=== PATIENT | male | born 1945 | race Caucasian/White ===

== ENCOUNTER 2016-06-15 11:30 | Inpatient (IN) | payer MEDICARE ==
[~2016-06-15] VITALS: Ht 177.8 cm; Wt 77.1 kg
[~2016-06-15 11:30] MED LIST: AMIO200T2 PO; ATOR40TA PO; CARV12.5 PO; CARV3.122 PO; CLOP75TA PO; DOXY100T PO; ENOX40DI3 SQ; FLUC100T7 PO; FURO-69 PO; HYDR-2666 PO; HYDR-2762 PO; HYDR200T5 PO; INSU100I11 SQ; INSU100I17 SQ; INSU100I27 SQ; INSU100V13 SQ; KETO120S TP; LEVO75TA PO; LEVO88TA2 PO; MORP4CAR IV; ONDA4VIA4 IV; PANT40TA5 PO; POLY17PO5 PO; POTA20TA4 PO; PRED5TAB PO; SENN-22 PO; TRAM50TA PO; TRIA1TAB3 PO
--- NOTE | 2016-06-15 11:49 | PHYS DOC ---
Past Medical History Past Medical History: CAD, Diabetes-Type II, [place], Other Additional Past Medical Histor: Rheumatoid arthritis Past Surgical History: Tonsillectomy Additional Past Surgical Histo: Quadruple bypass, multiple toe amputations, cataracts, LBKA Alcohol Use: None Drug Use: None Adult General Chief Complaint Chief Complaint: MECHANICAL FALL HPI HPI Patient is a 71 year old male who presents with a fall from his wheelchair. According patient is trying to turn it is wheelchair and got stuck on the carpet and that he slid out of the front of it. He presents with right- sided hip pain, left skin tear on his left arm. He states his last shot was within the last 5 years. He also states he hit his head on the floor. He denies any loss of consciousness. He states this happened around 9 AM and he presents to ER 2 hours later. He denies any abdominal pain, back pain, dysuria or headache. His blood pressure is noted to be 90s systolic. He states normally his blood pressure runs 120s systolic. Review of Systems Review of Systems Constitutional: Denies fever or chills [] Eyes: Denies change in visual acuity, redness, or eye pain [] HENT: Denies nasal congestion or sore throat [] Respiratory: Denies cough or shortness of breath [] Cardiovascular: No additional information not addressed in HPI [] GI: Denies abdominal pain, nausea, vomiting, bloody stools or diarrhea [] : Denies dysuria or hematuria [] Musculoskeletal: Denies back pain, positive for right hip pain Integument: Denies rash or skin lesions [] Neurologic: Denies headache, focal weakness or sensory changes [] Endocrine: Denies polyuria or polydipsia [] Current Medications Current Medications Current Medications Medications (Trade) Dose Ordered Sig/Juan R Start Time Stop Time Status Last Admin Dose Admin Sodium Chloride (Iv Sodium Chloride 0.9% 1000ml Bag) 1,000 ml @ 1,000 mls/hr 1X ONCE 06/15/16 14:30 06/15/16 15:29 Allergies Allergies Allergies Coded Allergies Type Severity Reaction Last Updated Verified I S O L A T I O N *CONTACT* Allergy Unknown 04/14/16 Yes No Known Medication Allergies Allergy Unknown 04/14/16 Yes Physical Exam Physical Exam Constitutional: Well developed, well nourished, no acute distress, non-toxic appearance. [] HENT: Normocephalic, atraumatic, bilateral external ears normal, oropharynx moist, no oral exudates, nose normal. [] Eyes: PERRLA, EOMI, conjunctiva normal, no discharge. [] Neck: Normal range of motion, no tenderness, supple, no stridor. [] Cardiovascular:Heart rate regular rhythm, no murmur [] Lungs & Thorax: Bilateral breath sounds clear to auscultation [] Abdomen: Bowel sounds normal, soft, no tenderness, no masses, no pulsatile masses. [] Skin: Warm, dry, no erythema, no rash. [] Back: No tenderness, no CVA tenderness. [] Extremities: Tender to palpation over the right hip, left BKA noted, no cyanosis , no clubbing, ROM intact, no edema. [] Neurologic: Alert and oriented X 3, normal motor function, normal sensory function, no focal deficits noted. [] Psychologic: Affect normal, judgement normal, mood normal. [] Current Patient Data Vital Signs Vital Signs Date Time Temp Pulse Resp B/P Pulse Ox O2 Delivery O2 Flow Rate FiO2 06/15/16 12:42 82 19 125/63 97 Room Air 06/15/16 11:30 98.0 98.0 Lab Values Laboratory Tests Test 06/15/16 12:10 06/15/16 12:35 06/15/16 12:40 Urine Collection Type U cath Urine Color Kami Urine Clarity Clear Urine pH 5.5 Urine Specific [place] >=1.030 Urine Protein 30mg/dL (NEG-TRACE) Urine Glucose (UA) 100mg/dL (NEG) Urine Ketones (Stick) Tracemg/dL (NEG) Urine Blood Moderate (NEG) Urine Nitrite Negative (NEG) Urine Bilirubin Small (NEG) Urine Urobilinogen Dipstick 0.2mg/dL (0.2 mg/dL) Urine Leukocyte Esterase Negative (NEG) Urine RBC 1-2/HPF (0-2) Urine WBC 1-4/HPF (0-4) Urine Squamous Epithelial Cells Mod/LPF Urine Bacteria 0/HPF (0-FEW) Urine Mucus Mod/LPF Glucose (Fingerstick) 171mg/dL (70-99) H White Blood Count 15.3x10^3/uL (4.0-11.0) H Red Blood Count 4.07x10^6/uL (4.30-5.70) L Hemoglobin 12.8g/dL (13.0-17.5) L Hematocrit 38.4% (39.0-53.0) L Mean Corpuscular Volume 94fL (79-100) Mean Corpuscular Hemoglobin 31pg (25-35) Mean Corpuscular Hemoglobin Concent 33g/dL (31-37) Red Cell Distribution Width 13.2% (11.5-14.5) Platelet Count 272x10^3/uL (140-400) Neutrophils (%) (Auto) 85% (31-73) H Lymphocytes (%) (Auto) 7% (24-48) L Monocytes (%) (Auto) 7% (0-9) Eosinophils (%) (Auto) 0% (0-3) Basophils (%) (Auto) 0% (0-3) Neutrophils # (Auto) 13.0x10^3uL (1.8-7.7) H Lymphocytes # (Auto) 1.0x10^3/uL (1.0-4.8) Monocytes # (Auto) 1.1x10^3/uL (0.0-1.1) Eosinophils # (Auto) 0.1x10^3/uL (0.0-0.7) Basophils # (Auto) 0.1x10^3/uL (0.0-0.2) Platelet Estimate Pending Sodium Level 145mmol/L (136-145) Potassium Level 3.5mmol/L (3.5-5.1) Chloride Level 107mmol/L (98-107) Carbon Dioxide Level 26mmol/L (21-32) Anion Gap 12 (6-14) Blood Urea Nitrogen 19mg/dL (8-26) Creatinine 1.0mg/dL (0.7-1.3) Estimated GFR (Cockcroft-Gault) 74.1 Glucose Level 144mg/dL (70-99) H Calcium Level 9.1mg/dL (8.5-10.1) Magnesium Level 1.9mg/dL (1.8-2.4) Total Bilirubin 0.7mg/dL (0.2-1.0) Direct Bilirubin 0.1mg/dL (0.0-0.2) Aspartate Amino Transferase (AST) 37U/L (15-37) Alanine Aminotransferase (ALT) 48U/L (16-63) Alkaline Phosphatase 110U/L (46-116) Creatine Kinase 335U/L (39-308) H Creatine Kinase MB (Mass) 3.9ng/mL (0.0-3.6) H Creatine Kinase MB Relative Index 1.2% (0-4) Troponin I Quantitative 0.032ng/mL (0.000-0.055) KE-Bef-T-Type Natriuretic Peptide 2790pg/mL (0-124) H Total Protein 6.7g/dL (6.4-8.2) Albumin 2.8g/dL (3.4-5.0) L Laboratory Tests 06/15/16 12:40 Laboratory Tests 06/15/16 12:40 EKG EKG EKG shows sinus rhythm with a rate of 93 bpm, left axis deviation, no ST elevations or T-wave inversions appreciated, artifact throughout the limb leads , QTc 470 ms, as interpreted by me. [] Radiology/Procedures Radiology/[place] [address] IMAGING REPORT Signed PATIENT: MARIELLE DYE ACCOUNT: [id number] : 1945 LOCATION: ER AGE: 71 SEX: M EXAM STATUS: PRE ER ORD. PHYSICIAN: ELZBIETA LYNCH MD REASON: hip pain after fall, CT FIRST PROCEDURE: CHEST AP ONLY Indication: Pain after a fall. Stiffness. Technique: AP portable chest radiograph was obtained. Comparison is from April 19, 2016. Findings: The lungs are clear. The heart is not enlarged and there is no heart failure. Median sternotomy wires are noted. There are degenerative changes in the spine. Impression: No acute thoracic findings. DICTATED and SIGNED BY: ADEOLA GUSMAN MD DATE: 06/15/16 1207 CC: ELZBIETA LYNCH MD; FEROZ ESPOSITO MD ~ [address] [id number] IMAGING REPORT Signed PATIENT: MARIELLE DYE ACCOUNT: [id number] : 1945 LOCATION: ER AGE: 71 SEX: M EXAM STATUS: PRE ER ORD. PHYSICIAN: ELZBIETA LYNCH MD REASON: hip pain after fall /NURSE WILL CALL PROCEDURE: HIP RIGHT 2V WITH PELVIS Indication: Right hip pain after a fall. Technique: 2 views of the right hip as well as an AP view of the pelvis are submitted for review. Comparison is from April 07, 2016. Findings: There is severe osteoarthritis with remodeling of the femoral head, sclerosis in the femoral head and acetabulum, and joint space narrowing. Appearance is similar to prior. No fracture or dislocation is identified. There are vascular calcifications. Impression: Severe osteoarthritis in the right hip. DICTATED and SIGNED BY: ADEOLA GUSMAN MD DATE: 06/15/16 1355 CC: ELZBIETA LYNCH MD; FEROZ ESPOSITO MD ~ [address] [id number] IMAGING REPORT Signed PATIENT: MARIELLE DYE ACCOUNT: [id number] : 1945 LOCATION: ER AGE: 71 SEX: M EXAM STATUS: PRE ER ORD. PHYSICIAN: ELZBIETA LYNCH MD REASON: fall with head and neck pain/not ready at 1213 PROCEDURE: HEAD AND CERVICAL SPINE WO CT of the head without contrast, 06/15/2016: History: Fall, head and neck pain Comparison is made to a study from 04/07/2016. The exam is partially compromised by patient motion artifact There is moderate cerebral atrophy. The ventricles are within normal limits in size. There is no evidence of acute intracranial hemorrhage or mass effect. There is an air-fluid level in the left maxillary sinus. There is mild mucosal thickening in the ethmoid sinuses. The findings are probably on an inflammatory basis. Hemorrhage into the left maxillary sinus cannot be entirely excluded. IMPRESSION: 1. No acute intracranial abnormality is detected. 2. Paranasal sinusitis. CT of the cervical spine without contrast, 06/15/2016: Noncontrast scans were obtained with multiplanar reconstructions produced. The study is partially compromised by patient motion artifact. There is a mild cervical scoliosis. There are moderate scattered marginal spurs. There are mild to moderate degenerative changes involving scattered facet joints bilaterally. Posterior spurs and disc bulging is causing mild central spinal stenosis and bilateral foraminal encroachment at C5-6. No acute fracture or dislocation is identified. IMPRESSION: 1. Moderate multilevel degenerative change. 2. No acute cervical spine abnormality is detected. PQRS Compliance Statement: One or more of the following individualized dose reduction techniques were utilized for this examination: 1. Automated exposure control 2. Adjustment of the mA and/or kV according to patient size 3. Use of iterative reconstruction technique DICTATED and SIGNED BY: ALISSA STAFFORD MD DATE: 06/15/16 2725 CC: ELZBIETA LYNCH MD; FEROZ ESPOSITO MD ~ Impressions: Right hip pain Dehydration Course & Med Decision Making Course & Med Decision Making Pertinent Labs and Imaging studies reviewed. (See chart for details) She presented without eating breakfast or have anything to drink in a fall in his wheelchair. CT scan head and neck in addition to x-ray of his chest and hip did not show any acute abnormalities. His blood pressure was on the softer side and after a liter fluid to spend the 120 range. Labs are nonacute. Patient discharged home with return precautions. Dragon Disclaimer Dragon Disclaimer This electronic medical record was generated, in whole or in part, using a voice recognition dictation system. Departure Departure Impression: Primary Impression: Dehydration Additional Impression: Right hip pain Disposition: 01 HOME, SELF-CARE Condition: STABLE Referrals: FEROZ ESPOSITO MD (PCP) Patient Instructions: Fall Prevention and Home Safety, [id number] Additional Instructions: The x-rays did not show any broken. He received IV fluids and giving discharged home. He should follow up with primary care physician within the next few days, use [id number] pain medicines as needed for any aches and pains. She developed chest pain, shortness of breath, lightheadedness dizziness or other concerns. Return back to emergency department. Problem Qualifiers ELZBIETA LYNCH MD Jun 15, 2016 11:49
[2016-06-15] MEDS ORDERED: IV NORMAL SALINE 1000ML BAG 1,000 ML IV SCH (12:00)
[2016-06-15 13:25] LABS: BASO # 0.1 x10^3/uL (0.0-0.2); BASO % 0 % (0-3); EOS % 0 % (0-3); HEMATOCRIT 38.4 % (39.0-53.0); HEMOGLOBIN 12.8 g/dL (13.0-17.5); LYMPH % 7 % (24-48); MEAN CORPUSCULAR HEMOGLOBIN 31 pg (25-35); MEAN CORPUSCULAR HGB CONC 33 g/dL (31-37); MEAN CORPUSCULAR VOLUME 94 fL (79-100); MONO % 7 % (0-9); NEUT % 85 % (31-73); PLATELET COUNT 272 x10^3/uL (140-400); RED BLOOD COUNT 4.07 x10^6/uL (4.30-5.70); RED CELL DISTRIBUTION WIDTH 13.2 % (11.5-14.5); WHITE BLOOD COUNT 15.3 x10^3/uL (4.0-11.0)
--- NOTE | 2016-06-15 13:55 | EKG ---
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 Electronically Signed On 06-18-2016 19:47:08 CDT by Jada Freitas
--- NOTE | 2016-06-15 13:57 | RAD ---
Indication: Pain after a fall. Stiffness. Technique: AP portable chest radiograph was obtained. Comparison is from April 19, 2016. Findings: The lungs are clear. The heart is not enlarged and there is no heart failure. Median sternotomy wires are noted. There are degenerative changes in the spine. Impression: No acute thoracic findings.
--- NOTE | 2016-06-15 14:00 | RAD ---
Indication: Right hip pain after a fall. Technique: 2 views of the right hip as well as an AP view of the pelvis are submitted for review. Comparison is from April 07, 2016. Findings: There is severe osteoarthritis with remodeling of the femoral head, sclerosis in the femoral head and acetabulum, and joint space narrowing. Appearance is similar to prior. No fracture or dislocation is identified. There are vascular calcifications. Impression: Severe osteoarthritis in the right hip.
--- NOTE | 2016-06-15 14:03 | RAD ---
CT of the head without contrast, 06/15/2016: History: Fall, head and neck pain Comparison is made to a study from 04/07/2016. The exam is partially compromised by patient motion artifact There is moderate cerebral atrophy. The ventricles are within normal limits in size. There is no evidence of acute intracranial hemorrhage or mass effect. There is an air-fluid level in the left maxillary sinus. There is mild mucosal thickening in the ethmoid sinuses. The findings are probably on an inflammatory basis. Hemorrhage into the left maxillary sinus cannot be entirely excluded. IMPRESSION: 1. No acute intracranial abnormality is detected. 2. Paranasal sinusitis. CT of the cervical spine without contrast, 06/15/2016: Noncontrast scans were obtained with multiplanar reconstructions produced. The study is partially compromised by patient motion artifact. There is a mild cervical scoliosis. There are moderate scattered marginal spurs. There are mild to moderate degenerative changes involving scattered facet joints bilaterally. Posterior spurs and disc bulging is causing mild central spinal stenosis and bilateral foraminal encroachment at C5-6. No acute fracture or dislocation is identified. IMPRESSION: 1. Moderate multilevel degenerative change. 2. No acute cervical spine abnormality is detected. PQRS Compliance Statement: One or more of the following individualized dose reduction techniques were utilized for this examination: 1. Automated exposure control 2. Adjustment of the mA and/or kV according to patient size 3. Use of iterative reconstruction technique
[2016-06-15 14:08] LABS: BILIRUBIN,URINE SMALL (NEG); GLUCOSE,URINE 100 mg/dL (NEG); NITRITE,URINE NEGATIVE (NEG); PH,URINE 5.5; PROTEIN,URINE 30 mg/dL (NEG-TRACE); UROBILINOGEN,URINE 0.2 mg/dL (0.2 mg/dL)
[2016-06-15 14:09] LABS: BACTERIA,URINE 0 /HPF (0-FEW); SQUAMOUS EPITHELIAL CELL,UR MOD /LPF
[2016-06-15 14:12] LABS: ALBUMIN 2.8 g/dL (3.4-5.0); CALCIUM 9.1 mg/dL (8.5-10.1); GFR 74.1; TOTAL PROTEIN 6.7 g/dL (6.4-8.2)
[2016-06-15 14:13] LABS: DIRECT BILIRUBIN 0.1 mg/dL (0.0-0.2); MAGNESIUM 1.9 mg/dL (1.8-2.4); POTASSIUM 3.5 mmol/L (3.5-5.1); TOTAL BILIRUBIN 0.7 mg/dL (0.2-1.0)
[2016-06-15] MEDS ORDERED: IV NORMAL SALINE 1000ML BAG 1,000 ML IV ONE (14:30)
[2016-06-15 14:39] LABS: CKMB INDEX 1.2 % (0-4); CKMB MASS 3.9 ng/mL (0.0-3.6)
[2016-06-15 15:38] LABS: % BASOS 1 % (0-3); % EOS 1 % (0-5)
[2016-06-15 15:40] LABS: PLT ESTIMATE ADEQUATE (ADEQUATE); TOXIC GRANULATION SLIGHT
[2016-06-15] MEDS ORDERED: ONDANSETRON PF 4 MG/2 ML VIAL. IV PRN (19:00)
[2016-06-15] MEDS ORDERED: ACETAMINOPHEN 325 MG TABLET. PO PRN (19:00)
[2016-06-15 20:00] VITALS: BP 88/40
[2016-06-15] MEDS: IV NORMAL SALINE 1000ML BAG 1,000 ML IV SCH (20:12)
[2016-06-15 23:00] VITALS: BP 108/55
[2016-06-16] MEDS: IV NORMAL SALINE 1000ML BAG 1,000 ML IV SCH (02:27)
[2016-06-16 03:00] VITALS: BP 95/53
--- NOTE | 2016-06-16 04:38 | ACF ---
Admission Forms Criteria DEHYDRATION Clinical Indications for Admission to Inpatient Care (Place 'X' for any and all applicable criteria): Admission is indicated for ANY ONE of the following (1)(2)(3)(4)(5): [X]I. Inpatient admission required rather than observation care (see Dehydration: Observation Care guideline as appropriate) because of ANY ONE of the following: [ ]a) Vomiting that is severe or persistent [ ]b) Severe electrolyte abnormalities requiring inpatient care [X]c) Hemodynamic instability [ ]d) IV fluid to replace significant ongoing losses (greater than 3 L/m2 per day (10) (11) [ ]e) Parenteral nutrition regimen that must be implemented on inpatient basis [ ]f) Other condition,treatment or monitoring requiring inpatient admission [ ]II. Serious cause for dehydration requiring acute hospitalization (eg, bowel obstruction, increased intracranial pressure, infectious cause) Extended stay beyond goal length of stay may be needed for(1)(3 )(4)(17): [ ]a) Chronic severe dehydration [ ]b) Persistent vital sign changes, severe electrolyte imbalance, or diagnosed cause of dehydration that requires continued hospitalization (eg, bowel obstruction, increased intracranial pressure) [ ]c) Older patients (65 years or older) [ ]d) Severe comorbid illness (eg, renal failure, heart failure, poorly controlled diabetes) The original Room 77 content created by Room 77 has been revised. The portions of the content which have been revised are identified through the use of italic text or in bold, and [facility] has neither reviewed nor approved the modified material. All other unmodified content is copyright Room 77. Please see references footnoted in the original Room 77 edition 2016 Admission Criteria Met?: Yes ANGELITO MARIN Jun 16, 2016 04:38
[2016-06-16 07:00] VITALS: BP 116/57
[2016-06-16 08:18] LABS: ALBUMIN/GLOBULIN RATIO 0.6 (1.0-1.7); CALCIUM 8.2 mg/dL (8.5-10.1); CREATININE 0.8 mg/dL (0.7-1.3); GFR 95.8; POTASSIUM 3.1 mmol/L (3.5-5.1); TOTAL BILIRUBIN 0.4 mg/dL (0.2-1.0); TOTAL PROTEIN 5.3 g/dL (6.4-8.2)
[2016-06-16] MEDS ORDERED: IV NORMAL SALINE 1000ML BAG 1,000 ML IV SCH (08:45)
[2016-06-16] MEDS ORDERED: POLYETHYLENE GLYCOL 3350 17 GM PACKET. PO PRN (08:45)
[2016-06-16] MEDS: POTASSIUM CHLORIDE 20 MEQ TABLET.ER. PO SCH ×2 (09:00→17:02)
[2016-06-16] MEDS: SENNOSIDES/DOCUSATE 8.6/50MG TABLET. PO SCH (09:00)
[2016-06-16] MEDS ORDERED: POTASSIUM CHLORIDE 20 MEQ TABLET.ER. PO ONE (09:00)
[2016-06-16 09:03] LABS: BASO % 0 % (0-3); EOS % 2 % (0-3); HEMATOCRIT 31.9 % (39.0-53.0); HEMOGLOBIN 10.7 g/dL (13.0-17.5); LYMPH # 1.1 x10^3/uL (1.0-4.8); LYMPH % 11 % (24-48); MEAN CORPUSCULAR HEMOGLOBIN 32 pg (25-35); MEAN CORPUSCULAR HGB CONC 34 g/dL (31-37); MEAN CORPUSCULAR VOLUME 95 fL (79-100); MONO % 10 % (0-9); NEUT % 78 % (31-73); PLATELET COUNT 209 x10^3/uL (140-400); RED BLOOD COUNT 3.36 x10^6/uL (4.30-5.70); RED CELL DISTRIBUTION WIDTH 13.2 % (11.5-14.5); WHITE BLOOD COUNT 10.2 x10^3/uL (4.0-11.0)
--- NOTE | 2016-06-16 09:03 | PDOC1 ---
HERNANDEZ WARD DISC PAD PLATE FILLER 06/16/16 0903: HISTORY AND PHYSICAL Chief Complaint Chief Complaint This 71 year old male has been admitted with a chief complaint of fall from his wheelchair. He was trying to turn the WC when it became stuck in the carpet and he slid out of the chair approximately 9AM 06/16/16. He noted acute on chronic RH pain and he hit his head on the floor. He cannot recall if he lost consciousness. He presented to the ED approximately [address] of the head negative; XR of the R hip severe OA; and cervical spine xray degenerative changes. EKG SR without acute changes. CXR negative. UA mod blood and trace ketones without WBC. CPK mildly elevated at 335. BNP was noted to be 2790 without acute symptoms. He was hypotensive with PB 70/45 and was given IVF. WBC were elevated at 15.3 without fever being present. He is admitted for further evaluation and treatment. 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) Rheumatologic: Rheumatoid arthritis Infectious disease: [place], Other Renal/: Chronic renal insuff (CKD II ), UTI Endocrine: 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 Medications Medications reviewed and reconciled. Allergy Allergies Coded Allergies Type Severity Reaction Last Updated Verified I S O L A T I O N *CONTACT* Allergy Unknown 04/14/16 Yes No Known Medication Allergies Allergy Unknown 04/14/16 Yes Physical Exam Physical Exam General appearance - alert, chronically ill appearing, and in no distress Mental Status - alert, oriented to person, place, and time, affect appropriate to mood Head - normal Chest - clear to auscultation, no wheezes, rales or rhonchi, symmetric air entry Heart - S1 and S2 normal Abdomen - soft, nontender, nondistended, BS+ Neurological - no acute focal neurological deficit noted Musculoskeletal - R hip tender, wound vac intact to R hip Extremities - no pedal edema Skin - warm and dry, seborrheic dermatitis face, multiple ecchymotic areas upper arms. VTE Prophylaxis Ordered VTE Prophylaxis Devices: Yes VTE Pharmacological Prophylaxi: No Assessment Labs Laboratory Tests Test 06/15/16 12:10 06/15/16 12:35 06/15/16 12:40 06/15/16 14:18 Urine Collection Type U cath Urine Color Kami Urine Clarity Clear Urine pH 5.5 Urine Specific [place] >=1.030 Urine Protein 30mg/dL (NEG-TRACE) Urine Glucose (UA) 100mg/dL (NEG) Urine Ketones (Stick) Tracemg/dL (NEG) Urine Blood Moderate (NEG) Urine Nitrite Negative (NEG) Urine Bilirubin Small (NEG) Urine Urobilinogen Dipstick 0.2mg/dL (0.2 mg/dL) Urine Leukocyte Esterase Negative (NEG) Urine RBC 1-2/HPF (0-2) Urine WBC 1-4/HPF (0-4) Urine Squamous Epithelial Cells Mod/LPF Urine Bacteria 0/HPF (0-FEW) Urine Mucus Mod/LPF Glucose (Fingerstick) 171mg/dL (70-99) White Blood Count 15.3x10^3/uL (4.0-11.0) Red Blood Count 4.07x10^6/uL (4.30-5.70) Hemoglobin 12.8g/dL (13.0-17.5) Hematocrit 38.4% (39.0-53.0) Mean Corpuscular Volume 94fL (79-100) Mean Corpuscular Hemoglobin 31pg (25-35) Mean Corpuscular Hemoglobin Concent 33g/dL (31-37) Red Cell Distribution Width 13.2% (11.5-14.5) Platelet Count 272x10^3/uL (140-400) Neutrophils (%) (Auto) 85% (31-73) Lymphocytes (%) (Auto) 7% (24-48) Monocytes (%) (Auto) 7% (0-9) Eosinophils (%) (Auto) 0% (0-3) Basophils (%) (Auto) 0% (0-3) Neutrophils # (Auto) 13.0x10^3uL (1.8-7.7) Lymphocytes # (Auto) 1.0x10^3/uL (1.0-4.8) Monocytes # (Auto) 1.1x10^3/uL (0.0-1.1) Eosinophils # (Auto) 0.1x10^3/uL (0.0-0.7) Basophils # (Auto) 0.1x10^3/uL (0.0-0.2) Segmented Neutrophils % 69% (35-66) Band Neutrophils % 13% (0-9) Lymphocytes % 8% (24-48) Monocytes % 8% (0-10) Eosinophils % 1% (0-5) Basophils % 1% (0-3) Toxic Granulation Slight Platelet Estimate Adequate (ADEQUATE) Sodium Level 145mmol/L (136-145) Potassium Level 3.5mmol/L (3.5-5.1) Chloride Level 107mmol/L (98-107) Carbon Dioxide Level 26mmol/L (21-32) Anion Gap 12 (6-14) Blood Urea Nitrogen 19mg/dL (8-26) Creatinine 1.0mg/dL (0.7-1.3) Estimated GFR (Cockcroft-Gault) 74.1 Glucose Level 144mg/dL (70-99) Calcium Level 9.1mg/dL (8.5-10.1) Magnesium Level 1.9mg/dL (1.8-2.4) Total Bilirubin 0.7mg/dL (0.2-1.0) Direct Bilirubin 0.1mg/dL (0.0-0.2) Aspartate Amino Transf (AST/SGOT) 37U/L (15-37) Alanine Aminotransferase (ALT/SGPT) 48U/L (16-63) Alkaline Phosphatase 110U/L (46-116) Creatine Kinase 335U/L (39-308) Creatine Kinase MB (Mass) 3.9ng/mL (0.0-3.6) Creatine Kinase MB Relative Index 1.2% (0-4) Troponin I Quantitative 0.032ng/mL (0.000-0.055) UJ-Kyt-I-Type Natriuretic Peptide 2790pg/mL (0-124) Total Protein 6.7g/dL (6.4-8.2) Albumin 2.8g/dL (3.4-5.0) Lactic Acid Level 1.2mmol/L (0.4-2.0) Test 06/15/16 22:26 06/16/16 00:55 06/16/16 07:25 Glucose (Fingerstick) 104mg/dL (70-99) 103mg/dL (70-99) Troponin I Quantitative 0.035ng/mL (0.000-0.055) Laboratory Tests Test 06/15/16 12:10 06/15/16 12:35 06/15/16 12:40 06/15/16 14:18 Urine Collection Type U cath Urine Color Kami Urine Clarity Clear Urine pH 5.5 Urine Specific [place] >=1.030 Urine Protein 30mg/dL (NEG-TRACE) Urine Glucose (UA) 100mg/dL (NEG) Urine Ketones (Stick) Tracemg/dL (NEG) Urine Blood Moderate (NEG) Urine Nitrite Negative (NEG) Urine Bilirubin Small (NEG) Urine Urobilinogen Dipstick 0.2mg/dL (0.2 mg/dL) Urine Leukocyte Esterase Negative (NEG) Urine RBC 1-2/HPF (0-2) Urine WBC 1-4/HPF (0-4) Urine Squamous Epithelial Cells Mod/LPF Urine Bacteria 0/HPF (0-FEW) Urine Mucus Mod/LPF Glucose (Fingerstick) 171mg/dL (70-99) White Blood Count 15.3x10^3/uL (4.0-11.0) Red Blood Count 4.07x10^6/uL (4.30-5.70) Hemoglobin 12.8g/dL (13.0-17.5) Hematocrit 38.4% (39.0-53.0) Mean Corpuscular Volume 94fL (79-100) Mean Corpuscular Hemoglobin 31pg (25-35) Mean Corpuscular Hemoglobin Concent 33g/dL (31-37) Red Cell Distribution Width 13.2% (11.5-14.5) Platelet Count 272x10^3/uL (140-400) Neutrophils (%) (Auto) 85% (31-73) Lymphocytes (%) (Auto) 7% (24-48) Monocytes (%) (Auto) 7% (0-9) Eosinophils (%) (Auto) 0% (0-3) Basophils (%) (Auto) 0% (0-3) Neutrophils # (Auto) 13.0x10^3uL (1.8-7.7) Lymphocytes # (Auto) 1.0x10^3/uL (1.0-4.8) Monocytes # (Auto) 1.1x10^3/uL (0.0-1.1) Eosinophils # (Auto) 0.1x10^3/uL (0.0-0.7) Basophils # (Auto) 0.1x10^3/uL (0.0-0.2) Segmented Neutrophils % 69% (35-66) Band Neutrophils % 13% (0-9) Lymphocytes % 8% (24-48) Monocytes % 8% (0-10) Eosinophils % 1% (0-5) Basophils % 1% (0-3) Toxic Granulation Slight Platelet Estimate Adequate (ADEQUATE) Sodium Level 145mmol/L (136-145) Potassium Level 3.5mmol/L (3.5-5.1) Chloride Level 107mmol/L (98-107) Carbon Dioxide Level 26mmol/L (21-32) Anion Gap 12 (6-14) Blood Urea Nitrogen 19mg/dL (8-26) Creatinine 1.0mg/dL (0.7-1.3) Estimated GFR (Cockcroft-Gault) 74.1 Glucose Level 144mg/dL (70-99) Calcium Level 9.1mg/dL (8.5-10.1) Magnesium Level 1.9mg/dL (1.8-2.4) Total Bilirubin 0.7mg/dL (0.2-1.0) Direct Bilirubin 0.1mg/dL (0.0-0.2) Aspartate Amino Transf (AST/SGOT) 37U/L (15-37) Alanine Aminotransferase (ALT/SGPT) 48U/L (16-63) Alkaline Phosphatase 110U/L (46-116) Creatine Kinase 335U/L (39-308) Creatine Kinase MB (Mass) 3.9ng/mL (0.0-3.6) Creatine Kinase MB Relative Index 1.2% (0-4) Troponin I Quantitative 0.032ng/mL (0.000-0.055) SS-Xbl-C-Type Natriuretic Peptide 2790pg/mL (0-124) Total Protein 6.7g/dL (6.4-8.2) Albumin 2.8g/dL (3.4-5.0) Lactic Acid Level 1.2mmol/L (0.4-2.0) Test 06/15/16 22:26 06/16/16 00:55 06/16/16 07:25 Glucose (Fingerstick) 104mg/dL (70-99) 103mg/dL (70-99) Troponin I Quantitative 0.035ng/mL (0.000-0.055) Plan Plan IMPRESSION: 1. R hip acute on chronic pain post fall from WC 2. R hip wound with wound vac POA 3. hypotension with low grade fever POA 4. CHF EF 35-40% per ECHO stable at admission, not acute 5. DM II with neuropathy insulin controlled, 6. hyperlipidemia 7. anemia chronic B12 deficiency 8. CAD with h/o OH, CABG x4 9. Rheumatoid arthritis 10. 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 diverticulosis 12. severe depression single episode mildly active 13 CKD II 14. severe weakness and debility 15. abnormal troponin with elevated CPK CK MB cardiac normal 16, severe weakness and debility 17. severe PCL malnutrition with trace ketonuria 18. seborrheic dermatitis 19. OA R hip severe 20. 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 Polyarthralgia. 29. Primary polyarticular osteoarthritis. 30 DMARD monitoring. 31. Chronic nonsteroidal antiinflammatory drug use. 32. R hip decubitus ulcer stage III s/p debridement 04/14/16 PLAN: R hip pain acute on chronic consult Dr. Chen R hip xray severe OA with h/o avascular necrosis with shortening deformity of the R thigh abnormal troponin Admit 0.035 06/16 0.065 CK 335 CK MB (mass 3.9) MB II WNL consult cardiology EKG on admission SR without acute changes, repeat EKG this AM 06/16 leukocytosis, hypotension, low grade temp BC x2 consult ID wound care consult for wound vac UA hematuria, neg WBC, trace ketones IVF 1/2 NS with addition 40 KCL (06/16) 100cc/hr CKD II Admit BUN 19 06/16 16 Cr 1.0 0.8 Na 145 146 K 3.5 3.1 replace KCL 40meq oral x 1 Add 40 meq to IVF and change to 1/2 NS Decrease IV from 150cc/hr to 100cc/hr CHF stable systolic Admit weight 164# IO Daily wt BNP 2790 without symptoms/CXR clear anemia Admit Hgb 12.8 DM II Levemir SSI/FSBS BS 103-110 severe PCL malnutrition supplementation ADA diet DVT/GI prophylaxis SCD/CARLEY Lovenox PPI For more details regarding further plans, please refer to the orders. FEROZ ESPOSITO MD 06/16/16 1024: HISTORY AND PHYSICAL Plan Plan patient can not take care of himself at the assisted living.he needs to be in a [facility] care home. consult healthcare social worker. The patient was seen and examined by me. Chart reviewed and plan of care formulated. Discussed with, reviewed and agree with PAPER DELIVERER's notes, plan of care and orders with modifications as necessary. For more details regarding further plans, please refer to the orders. HERNANDEZ WARD APRN Jun 16, 2016 09:03 FEROZ ESPOSITO MD Jun 16, 2016 10:24
--- NOTE | 2016-06-16 09:11 | EKG ---
[facility] [address] [place] [address] Test Date: 2016-06-16 Test Time: 09:10:38 Pat Name: MARIELLE DYE Department: Room: [facility] Gender: M Casket Inspector: RAY : 1945 Requested By: FEROZ ESPOSITO Order Number: [id number] Reading MD: Jada Freitas Measurements Intervals Lowgap Rate: 70 P: -54 WA: 114 QRS: -9 QRSD: 108 T: 76 QT: 432 QTc: 470 Interpretive Statements SINUS RHYTHM LEFTWARD AXIS QRS(T) CONTOUR ABNORMALITY CONSIDER ANTEROSEPTAL MYOCARDIAL DAMAGE CONSISTENT WITH INFERIOR INFARCT PROBABLY OLD ABNORMAL ECG RI6.01 Compared to ECG 04/07/2016 13:27:59 Myocardial infarct finding now present Atrial abnormality no longer present Electronically Signed On 06-18-2016 19:59:19 CDT by Jada Freitas
[2016-06-16] MEDS: CLOPIDOGREL BISULFATE 75 MG TABLET PO SCH (09:58)
[2016-06-16] MEDS: HYDROXYCHLOROQUINE 200 MG TABLET PO SCH ×2 (09:59→20:51)
[2016-06-16] MEDS: ENOXAPARIN 40 MG/0.4 ML DISP.SYRIN. SQ SCH (09:59)
[2016-06-16] MEDS: PANTOPRAZOLE 40 MG TABLET. PO SCH (09:59)
[2016-06-16] MEDS: AMIODARONE HCL 200 MG TABLET PO SCH (09:59)
[2016-06-16] MEDS: CARVEDILOL 3.125 MG TABLET PO SCH ×2 (10:00→17:00)
[2016-06-16] MEDS: POTASSIUM CHLORIDE 40 MEQ in IV 1/2 NORMAL SALINE 1,000 ML IV SCH ×2 (10:01→20:51)
[2016-06-16] MEDS: PREDNISONE 5 MG TABLET PO SCH (10:02)
[2016-06-16] MEDS: KETOCONAZOLE 2% SHAMPOO 120ML BOTTLE. TP SCH (10:02)
[2016-06-16 10:53] VITALS: BP 95/36
[2016-06-16] MEDS: LEVOTHYROXINE 88 MCG TABLET PO SCH (11:10)
--- NOTE | 2016-06-16 11:11 | PDOC ---
Infectious Disease Note ROS ROS Vital Sign Vital Signs Vital Signs Date Time Temp Pulse Resp B/P Pulse Ox O2 Delivery O2 Flow Rate FiO2 06/16/16 10:53 97.6 73 20 95/36 93 Room Air 97.6 Labs Lab Laboratory Tests Test 06/15/16 12:10 06/15/16 12:35 06/15/16 12:40 06/15/16 14:18 Urine Collection Type U cath Urine Color Kami Urine Clarity Clear Urine pH 5.5 Urine Specific [place] >=1.030 Urine Protein 30mg/dL (NEG-TRACE) Urine Glucose (UA) 100mg/dL (NEG) Urine Ketones (Stick) Tracemg/dL (NEG) Urine Blood Moderate (NEG) Urine Nitrite Negative (NEG) Urine Bilirubin Small (NEG) Urine Urobilinogen Dipstick 0.2mg/dL (0.2 mg/dL) Urine Leukocyte Esterase Negative (NEG) Urine RBC 1-2/HPF (0-2) Urine WBC 1-4/HPF (0-4) Urine Squamous Epithelial Cells Mod/LPF Urine Bacteria 0/HPF (0-FEW) Urine Mucus Mod/LPF Glucose (Fingerstick) 171mg/dL (70-99) White Blood Count 15.3x10^3/uL (4.0-11.0) Red Blood Count 4.07x10^6/uL (4.30-5.70) Hemoglobin 12.8g/dL (13.0-17.5) Hematocrit 38.4% (39.0-53.0) Mean Corpuscular Volume 94fL (79-100) Mean Corpuscular Hemoglobin 31pg (25-35) Mean Corpuscular Hemoglobin Concent 33g/dL (31-37) Red Cell Distribution Width 13.2% (11.5-14.5) Platelet Count 272x10^3/uL (140-400) Neutrophils (%) (Auto) 85% (31-73) Lymphocytes (%) (Auto) 7% (24-48) Monocytes (%) (Auto) 7% (0-9) Eosinophils (%) (Auto) 0% (0-3) Basophils (%) (Auto) 0% (0-3) Neutrophils # (Auto) 13.0x10^3uL (1.8-7.7) Lymphocytes # (Auto) 1.0x10^3/uL (1.0-4.8) Monocytes # (Auto) 1.1x10^3/uL (0.0-1.1) Eosinophils # (Auto) 0.1x10^3/uL (0.0-0.7) Basophils # (Auto) 0.1x10^3/uL (0.0-0.2) Segmented Neutrophils % 69% (35-66) Band Neutrophils % 13% (0-9) Lymphocytes % 8% (24-48) Monocytes % 8% (0-10) Eosinophils % 1% (0-5) Basophils % 1% (0-3) Toxic Granulation Slight Platelet Estimate Adequate (ADEQUATE) Sodium Level 145mmol/L (136-145) Potassium Level 3.5mmol/L (3.5-5.1) Chloride Level 107mmol/L (98-107) Carbon Dioxide Level 26mmol/L (21-32) Anion Gap 12 (6-14) Blood Urea Nitrogen 19mg/dL (8-26) Creatinine 1.0mg/dL (0.7-1.3) Estimated GFR (Cockcroft-Gault) 74.1 Glucose Level 144mg/dL (70-99) Calcium Level 9.1mg/dL (8.5-10.1) Magnesium Level 1.9mg/dL (1.8-2.4) Total Bilirubin 0.7mg/dL (0.2-1.0) Direct Bilirubin 0.1mg/dL (0.0-0.2) Aspartate Amino Transf (AST/SGOT) 37U/L (15-37) Alanine Aminotransferase (ALT/SGPT) 48U/L (16-63) Alkaline Phosphatase 110U/L (46-116) Creatine Kinase 335U/L (39-308) Creatine Kinase MB (Mass) 3.9ng/mL (0.0-3.6) Creatine Kinase MB Relative Index 1.2% (0-4) Troponin I Quantitative 0.032ng/mL (0.000-0.055) EB-Jfu-L-Type Natriuretic Peptide 2790pg/mL (0-124) Total Protein 6.7g/dL (6.4-8.2) Albumin 2.8g/dL (3.4-5.0) Lactic Acid Level 1.2mmol/L (0.4-2.0) Test 06/15/16 22:26 06/16/16 00:55 06/16/16 07:00 06/16/16 07:25 Glucose (Fingerstick) 104mg/dL (70-99) 103mg/dL (70-99) Troponin I Quantitative 0.035ng/mL (0.000-0.055) 0.065ng/mL (0.000-0.055) Sodium Level 146mmol/L (136-145) Potassium Level 3.1mmol/L (3.5-5.1) Chloride Level 111mmol/L (98-107) Carbon Dioxide Level 25mmol/L (21-32) Anion Gap 10 (6-14) Blood Urea Nitrogen 16mg/dL (8-26) Creatinine 0.8mg/dL (0.7-1.3) Estimated GFR (Cockcroft-Gault) 95.8 BUN/Creatinine Ratio 20 (6-20) Glucose Level 110mg/dL (70-99) Calcium Level 8.2mg/dL (8.5-10.1) Total Bilirubin 0.4mg/dL (0.2-1.0) Aspartate Amino Transf (AST/SGOT) 27U/L (15-37) Alanine Aminotransferase (ALT/SGPT) 33U/L (16-63) Alkaline Phosphatase 82U/L (46-116) Total Protein 5.3g/dL (6.4-8.2) Albumin 2.0g/dL (3.4-5.0) Albumin/Globulin Ratio 0.6 (1.0-1.7) Test 06/16/16 08:40 06/16/16 10:38 White Blood Count 10.2x10^3/uL (4.0-11.0) Red Blood Count 3.36x10^6/uL (4.30-5.70) Hemoglobin 10.7g/dL (13.0-17.5) Hematocrit 31.9% (39.0-53.0) Mean Corpuscular Volume 95fL (79-100) Mean Corpuscular Hemoglobin 32pg (25-35) Mean Corpuscular Hemoglobin Concent 34g/dL (31-37) Red Cell Distribution Width 13.2% (11.5-14.5) Platelet Count 209x10^3/uL (140-400) Neutrophils (%) (Auto) 78% (31-73) Lymphocytes (%) (Auto) 11% (24-48) Monocytes (%) (Auto) 10% (0-9) Eosinophils (%) (Auto) 2% (0-3) Basophils (%) (Auto) 0% (0-3) Neutrophils # (Auto) 7.9x10^3uL (1.8-7.7) Lymphocytes # (Auto) 1.1x10^3/uL (1.0-4.8) Monocytes # (Auto) 1.0x10^3/uL (0.0-1.1) Eosinophils # (Auto) 0.2x10^3/uL (0.0-0.7) Basophils # (Auto) 0.0x10^3/uL (0.0-0.2) Glucose (Fingerstick) 105mg/dL (70-99) Objective Assessment Leukocytosis improved S/p mechanical fall Right hip/ ankle wounds - no sign of infection Elevated troponin Chronic sinus disease Plan Plan of Care Cont local wound care No need for abx Please call with questions Thank you # [id number] AYLIN MALAVE MD Jun 16, 2016 11:11
[2016-06-16 14:28] VITALS: BP 97/52
--- NOTE | 2016-06-16 17:52 | PDOC2 ---
ANGELICA COLINDRES APRN 06/16/16 1752: CARDIAC CONSULT DATE OF CONSULT Date of Consult DATE: 06/16/16 TIME: 17:38 REASON FOR CONSULT Reason for Consult: elevated troponin REFERRING PHYSICIAN Referring Physician: Giulia Cannon APRN SOURCE Source: Chart review, Patient HISTORY OF PRESENT ILLNESS HISTORY OF PRESENT ILLNESS 71 year old male with fall out of wheelchair earlier today after getting chair caught in carpet. Thinks he laid on the floor ~ 15 minutes and found by HH RN. Reportedly hit head but did not pass out. Denies any symptoms prior to episode, i.e. CP, dyspnea, dizziness, lightheadedness, palpitations. Has noted UE edema recently. Troponin levels 0.032 to 0.035 and then 0.065. No acute changes in EKG. K = 3.1 this a.m. SBP of 75-78 and bolused with IV fluids. Reason for Visit: elevated troponin PAST MEDICAL HISTORY Cardiovascular: CAD (with previous CABG X 4), CHF (systolic), HTN, AK, Hyperlipidemia Pulmonary: Pneumonia CENTRAL NERVOUS SYSTEM: Periperal neuropathy GI: Diverticulosis, GERD Heme/Onc: Anemia NOS Musculoskeletal: Osteoarthritis, Other (MRSA left elbow) Rheumatologic: Rheumatoid arthritis Renal/: Chronic renal insuff (stage II) Endocrine: Diabetes (II, with peripheral neuropathy, insulin requiring), Hypothyroidism PAST SURGICAL HISTORY Past Surgical History: Pacemaker (ICD implant and explant), CABG, Tonsillectomy , Other (left BKA; Ray procedure to right great toe) FAMILY HISTORY Family History: Coronary Artery Disease, Diabetes SOCIAL HISTORY Smoke: Quit ALCOHOL: none Drugs: None Lives: [facility] (assisted [facility]) CURRENT MEDICATIONS CURRENT MEDICATIONS Current Medications Medications (Trade) Dose Ordered Sig/Juan R Route PRN Reason Start Time Stop Time Status Last Admin Dose Admin Sodium Chloride (Iv Sodium Chloride 0.9% 1000ml Bag) 1,000 ml @ 150 mls/hr Q6H40M IV 06/15/16 18:59 06/16/16 08:40 DC 06/16/16 02:27 Amiodarone HCl (Cordarone) 200 mg DAILY PO 06/16/16 09:00 06/16/16 09:59 Carvedilol (Coreg) 3.125 mg BIDWMEALS PO 06/16/16 09:00 06/16/16 10:00 Clopidogrel Bisulfate (Plavix) 75 mg DAILY PO 06/16/16 09:00 06/16/16 09:58 Enoxaparin Sodium (Lovenox 40mg Syringe) 40 mg Q24H SQ 06/16/16 09:00 06/16/16 09:59 Hydroxychloroquine Sulfate (Plaquenil) 200 mg BID PO 06/16/16 09:00 06/16/16 09:59 Ketoconazole (Nizoral 2% Shampoo) 1 aby DAILY TP 06/16/16 09:00 06/16/16 10:02 Levothyroxine Sodium (Synthroid) 88 mcg DAILY07 PO 06/16/16 10:30 06/16/16 11:10 Pantoprazole Sodium (Protonix) 40 mg DAILYAC PO 06/16/16 09:00 06/16/16 09:59 Potassium Chloride (Klor-Con) 40 meq BIDWMEALS PO 06/16/16 09:00 06/16/16 17:02 Prednisone 5 mg 5 mg DAILY PO 06/16/16 09:00 06/16/16 10:02 Potassium Chloride/Sodium Chloride (Iv Sodium Chloride 0.45%) 1,020 ml @ 100 mls/hr [id number] IV 06/16/16 09:00 06/16/16 10:01 Potassium Chloride (Klor-Con) 40 meq 1X ONCE PO 06/16/16 09:00 06/16/16 09:05 DC 06/16/16 09:58 ALLERGIES ALLERGIES: Coded Allergies: I S O L A T I O N *CONTACT* (Verified Allergy, Unknown, 04/14/16) mrsa No Known Medication Allergies (Verified Allergy, Unknown, 04/14/16) ROS Review of System 14 point review with pertinent positives in HPI PHYSICAL EXAM General: Alert, Oriented X3, Cooperative, No acute distress HEENT: Atraumatic, PERRLA Lungs: Other (basilar crackles) Heart: Normal S1, Normal S2, Other Abdomen: Normal bowel sounds, Soft Extremities: Other (bilateral UE edema with multiple ecchymotic areas; abrasion on left posterior forearm; dressing on left elbow) Neuro: Normal speech Psych/Mental Status: Mental status NL, Mood NL MUSCULOSKELETAL: Other (left BKA) VITALS VITALS Vital Signs Date Time Temp Pulse Resp B/P Pulse Ox O2 Delivery O2 Flow Rate FiO2 06/16/16 17:00 69 97/52 06/16/16 14:28 98.5 20 93 Room Air 98.5 LABS Lab: Laboratory Tests Test 06/15/16 22:26 06/16/16 00:55 06/16/16 07:00 06/16/16 07:25 Glucose (Fingerstick) 104mg/dL (70-99) 103mg/dL (70-99) Troponin I Quantitative 0.035ng/mL (0.000-0.055) 0.065ng/mL (0.000-0.055) Sodium Level 146mmol/L (136-145) Potassium Level 3.1mmol/L (3.5-5.1) Chloride Level 111mmol/L (98-107) Carbon Dioxide Level 25mmol/L (21-32) Anion Gap 10 (6-14) Blood Urea Nitrogen 16mg/dL (8-26) Creatinine 0.8mg/dL (0.7-1.3) Estimated GFR (Cockcroft-Gault) 95.8 BUN/Creatinine Ratio 20 (6-20) Glucose Level 110mg/dL (70-99) Calcium Level 8.2mg/dL (8.5-10.1) Total Bilirubin 0.4mg/dL (0.2-1.0) Aspartate Amino Transf (AST/SGOT) 27U/L (15-37) Alanine Aminotransferase (ALT/SGPT) 33U/L (16-63) Alkaline Phosphatase 82U/L (46-116) Total Protein 5.3g/dL (6.4-8.2) Albumin 2.0g/dL (3.4-5.0) Albumin/Globulin Ratio 0.6 (1.0-1.7) Test 06/16/16 08:40 06/16/16 10:38 06/16/16 16:28 White Blood Count 10.2x10^3/uL (4.0-11.0) Red Blood Count 3.36x10^6/uL (4.30-5.70) Hemoglobin 10.7g/dL (13.0-17.5) Hematocrit 31.9% (39.0-53.0) Mean Corpuscular Volume 95fL (79-100) Mean Corpuscular Hemoglobin 32pg (25-35) Mean Corpuscular Hemoglobin Concent 34g/dL (31-37) Red Cell Distribution Width 13.2% (11.5-14.5) Platelet Count 209x10^3/uL (140-400) Neutrophils (%) (Auto) 78% (31-73) Lymphocytes (%) (Auto) 11% (24-48) Monocytes (%) (Auto) 10% (0-9) Eosinophils (%) (Auto) 2% (0-3) Basophils (%) (Auto) 0% (0-3) Neutrophils # (Auto) 7.9x10^3uL (1.8-7.7) Lymphocytes # (Auto) 1.1x10^3/uL (1.0-4.8) Monocytes # (Auto) 1.0x10^3/uL (0.0-1.1) Eosinophils # (Auto) 0.2x10^3/uL (0.0-0.7) Basophils # (Auto) 0.0x10^3/uL (0.0-0.2) Glucose (Fingerstick) 105mg/dL (70-99) 98mg/dL (70-99) IMAGES IMAGES CXR: Findings: The lungs are clear. The heart is not enlarged and there is no heart failure. Median sternotomy wires are noted. There are degenerative changes in the spine. Impression: No acute thoracic findings. EKG EKG no acute changes ECHOCARDIOGRAM ECHOCARDIOGRAM 03/22/2017: [facility] Limited echo to evaluate LV systolic function. Left ventricle systolic function is moderately impaired. The Ejection Fraction is 35-40%. There is no evidence of significant pericardial effusion. ASSESSMENT/PLAN ASSESSMENT/PLAN 1. elevated troponin not consistent with ACS EKG without acute changes suspect demand mediated [facility] 03/2016 with LVEF of 35-40%; had been 20-25% 10/2015 2. falls more frequent since 09/2015 ? ability to live independently 3. CAD with previous CABG no anginal symptoms continue secondary prevention 4. ischemic CMP LVEF depressed cautious use of IVF continue medical management 5. HLD continue statin therapy 6. DM, II with DPN per primary service Problems: KIMBERLY SHEPHERD MD 06/16/16 0595: CARDIAC CONSULT ALLERGIES ALLERGIES: Coded Allergies: I S O L A T I O N *CONTACT* (Verified Allergy, Unknown, 04/14/16) mrsa No Known Medication Allergies (Verified Allergy, Unknown, 04/14/16) ASSESSMENT/PLAN ASSESSMENT/PLAN Pt. seen and examined. Agree with above [employer] PIPE note. 71 y.o male with mechanical fall. known CAD and CABG denies chest pain/dyspnea minimal trop elevation in the setting of possible transient hypotension supportive care for now. Given lack of any new symptoms, known ischemic CMP and poor overall condition, continue conservative mgmt. Noted some mild edema of the upper extremities. Consider IV lasix tomorrow if needed. Problems: ANGELICA COLINDRES APRN Jun 16, 2016 17:52 KIMBERLY SHEPHERD MD Jun 16, 2016 21:46
[2016-06-16 19:00] VITALS: BP 104/54
[2016-06-16] MEDS ORDERED: ATORVASTATIN CALCIUM 40 MG TABLET. PO SCH (21:00)
[2016-06-16 23:00] VITALS: BP 132/58
--- NOTE | 2016-06-17 00:05 | CONS ---
DATE OF CONSULTATION: 06/16/2016 PATIENT ROOM: 550 REQUESTING PHYSICIAN: Dr. Blackman. REASON FOR CONSULTATION: Leukocytosis and wounds. HISTORY OF PRESENT ILLNESS: The patient is a 71-year-old gentleman admitted with history of previous MSSA wound infections, previous right BKA, has a wound on his right hip and a left heel. He has been undergoing wound VAC care at home with home health. He is admitted now to [facility] after he had fallen out of his wheelchair after he became stuck in the thick carpet. He states he did bump his head, but he has not had any bleed. No loss of consciousness and he presented to [facility] Emergency Room approximately 2 hours afterwards. He had a white count of 15.5 with 13% bands. Urinalysis was obtained and was clean. He had a troponin that was checked at 0.32 with creatine kinase of 3.35. His troponin is elevated to 0.65, but his white blood cell count has improved to 10 with a normal differential. He has been afebrile. He has no headaches. No sore throat, cough or chest pain. No nausea, vomiting or diarrhea. Currently, he is not on any antimicrobials and is feeling somewhat better. PAST MEDICAL HISTORY: Positive for left elbow MRSA infection, history of heel infection, history of right toe amputations as well as BKA, history of MSSA, osteomyelitis, history of previous Proteus infection from the wound, longstanding diabetes, coronary artery disease, congestive heart failure, hypertension, history of myocardial infarction in the past, hyperlipidemia, pneumonia, peripheral neuropathy, and rheumatoid arthritis. PAST SURGICAL HISTORY: Positive for CABG, cataract removal, tonsillectomy, left great toe infection, right fifth toe amputations as well as above-mentioned BKA and pacemaker. REVIEW OF SYSTEMS: Otherwise negative except for mentioned above. ALLERGIES: No known drug allergies. SOCIAL HISTORY: Quit smoking 20 years ago. Lives alone. FAMILY HISTORY: Positive for diabetes and sister with cancer. CURRENT MEDICATIONS: Include amiodarone, Coreg, Plavix, Synthroid, Zofran, Protonix, and prednisone. Other meds are available and have been reviewed in the chart. PHYSICAL EXAMINATION: VITAL SIGNS: T-max 99.5, currently 97.6, pulse 73, respirations 20, blood pressure 95/36. CONSTITUTIONAL: He is cooperative. He is in no acute distress. HEENT: Pupils are equal and reactive with normal conjunctivae. Oral cavity, oropharynx is clear. NECK: Supple, without JVD. LUNGS: Clear to auscultation bilaterally. HEART: S1, S2. ABDOMEN: Soft, nontender, nondistended, positive bowel sounds. EXTREMITIES: Without clubbing, cyanosis. He has a wound on his right hip with a VAC in place. The VAC was removed. There is exposed tendon. These appear to have pressure associated with the middle tissue, but no surrounding erythema, fluctuance, odor, drainage or purulence. His left elbow wound is well healed with minimal edema. His right heel wound has stage 2-3 that is clean without signs of any complications. SKIN: Warm to touch without signs of rash. NEUROLOGIC: He is nonfocal and appropriate. Affect is appropriate. LABORATORY DATA: White count 10.2, hemoglobin 10.7, platelets of 209, neutrophils 78, lymphs are of 11. Creatinine of 0.8 and glucose of 110. Troponin reviewed in history of present illness. Urinalysis is clean. There are no cultures. Chest x-ray, no acute findings. CT scan has some paranasal sinus disease, no intracranial abnormalities there. Hip and pelvis x-rays, osteoarthritis of the right hip. IMPRESSION: 1. Leukocytosis that is improved. 2. Status post mechanical fall. 3. Right hip and ankle wounds. No signs of infection. 4. Elevated troponin. 5. Chronic sinus disease. RECOMMENDATIONS: Continue local wound care. No need for antibiotics. Please call with questions. Thank you for allowing to participate in this patient's care. If you have any questions, please do not hesitate to contact me. AYLIN MALAVE MD DR: BOY/sky JOB#: [id number] / [id number]
[2016-06-17 03:00] VITALS: BP 120/58
[2016-06-17 05:59] LABS: BASO % 0 % (0-3); EOS % 4 % (0-3); HEMATOCRIT 34.2 % (39.0-53.0); HEMOGLOBIN 11.2 g/dL (13.0-17.5); LYMPH # 1.3 x10^3/uL (1.0-4.8); LYMPH % 14 % (24-48); MEAN CORPUSCULAR HEMOGLOBIN 32 pg (25-35); MEAN CORPUSCULAR HGB CONC 33 g/dL (31-37); MEAN CORPUSCULAR VOLUME 96 fL (79-100); MONO % 9 % (0-9); NEUT % 73 % (31-73); PLATELET COUNT 218 x10^3/uL (140-400); RED BLOOD COUNT 3.55 x10^6/uL (4.30-5.70); RED CELL DISTRIBUTION WIDTH 13.3 % (11.5-14.5); WHITE BLOOD COUNT 8.8 x10^3/uL (4.0-11.0)
[2016-06-17 06:24] LABS: ALBUMIN 2.1 g/dL (3.4-5.0); ALBUMIN/GLOBULIN RATIO 0.6 (1.0-1.7); CALCIUM 8.5 mg/dL (8.5-10.1); CREATININE 0.7 mg/dL (0.7-1.3); GFR 111.8; MAGNESIUM 1.9 mg/dL (1.8-2.4); POTASSIUM 4.4 mmol/L (3.5-5.1); TOTAL BILIRUBIN 0.5 mg/dL (0.2-1.0); TOTAL PROTEIN 5.7 g/dL (6.4-8.2)
--- NOTE | 2016-06-17 06:58 | CONS ---
DATE OF CONSULTATION: 06/16/2016 ATTENDING PHYSICIAN: Dr. Candi Blackman. The patient was seen at the request of Dr. Blackman for rehab evaluation. HISTORY OF PRESENT ILLNESS: This is a 71-year-old male admitted through the Emergency Room this morning after he fell from his electric wheelchair. He was trying to turn the wheelchair when it became stuck in the carpet and slid out of chair approximately around 9:00 this a.m. The patient had severe degenerative joint disease of the right hip and he is waiting for the right heel wound to heal before he is considered for any surgical candidate for right total hip arthroplasty. He has seen Dr. Godfrey before. The patient also recently developed right trochanteric bursa skin lesion for which he is receiving wound VAC prior to the present hospitalization. The patient had radiological studies, which revealed again severe degenerative joint disease of the right hip. CT scan of the head is negative. Cervical spine x-rays revealed degenerative changes. EKG, no acute changes. Chest x-ray is negative. The patient had mildly elevated CPK at 335. BNP 2790. He was noted with a blood pressure of 70/45 and leukocytosis without any fever. 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 Family history of carcinoma with mother and sister, diabetes mellitus with father. The patient lives at [facility]. He ran out of nursing home care unit days and he had to pay about $5000 a month for detention placement and he could not financially afford it. The patient would like to go back to assisted living place when he is medically stable. The patient complains of pain in his right hip area. PHYSICAL EXAMINATION: Today revealed an elderly male. He is alert, oriented to time, place, person and circumstance and follows commands appropriately. The patient had voluntary motion of both upper extremities and left lower extremity. He had significant limitation of right hip joint range of motion with pain on any attempted range of motion. He had wound VAC in place to his right trochanteric bursa area and he had dressing to his right heel. He had edema and redness of his right hand and forearm and also some redness of left below-knee stump with some bruising and he had skin abrasion and laceration over his coccyx area and buttock area. The patient requires help with bed mobility. I have not tested his transfers or ambulation capacity at this time, but he is usually using his left below-knee prosthesis and gets in and out of bed to the electric wheelchair and he is independent with electric wheelchair level of mobility. He had absent right knee and ankle jerk. He had crepitus on range of motion of the right knee and right ankle and some edema of his right foot. 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 RECOMMENDATIONS: Agree with the plan for wound care to make sure he does not have any cellulitis or deep venous thrombosis of the right upper extremity, back to assisted living place with home health followup when he is medically stable. Dr. Blackman, I appreciate asking me to participate in the care of this interesting patient. I will be glad to follow him with you as needed for rehabilitation. VINNY MENDIOLA MD DR: EAN/sky JOB#: [id number] / [id number]
[2016-06-17 07:00] VITALS: BP 120/58
[2016-06-17] MEDS: LEVOTHYROXINE 88 MCG TABLET PO SCH (07:24)
[2016-06-17] MEDS: PANTOPRAZOLE 40 MG TABLET. PO SCH (07:24)
[2016-06-17] MEDS: POTASSIUM CHLORIDE 40 MEQ in IV 1/2 NORMAL SALINE 1,000 ML IV SCH (07:26)
[2016-06-17] MEDS: ENOXAPARIN 40 MG/0.4 ML DISP.SYRIN. SQ SCH (08:41)
[2016-06-17] MEDS: AMIODARONE HCL 200 MG TABLET PO SCH (08:42)
[2016-06-17] MEDS: CARVEDILOL 3.125 MG TABLET PO SCH (08:42)
[2016-06-17] MEDS: CLOPIDOGREL BISULFATE 75 MG TABLET PO SCH (08:42)
[2016-06-17] MEDS: HYDROXYCHLOROQUINE 200 MG TABLET PO SCH (08:43)
[2016-06-17] MEDS: PREDNISONE 5 MG TABLET PO SCH (08:43)
[2016-06-17] MEDS: POTASSIUM CHLORIDE 20 MEQ TABLET.ER. PO SCH (08:43)
[2016-06-17] MEDS: HYDROCODONE/APAP 7.5/325MG TABLET. PO PRN ×2 (08:43→15:33)
[2016-06-17] MEDS: SENNOSIDES/DOCUSATE 8.6/50MG TABLET. PO SCH (08:49)
[2016-06-17] MEDS: KETOCONAZOLE 2% SHAMPOO 120ML BOTTLE. TP SCH (09:00)
--- NOTE | 2016-06-17 09:16 | PDOC ---
NENITARUSSHERNANDEZ DIRECTOR MEDICAID 06/17/16 0916: IM PROGRESS NOTES- Subjective Subjective feeling better Objective Objective awake alert Vitals Vital Signs Date Time Temp Pulse Resp B/P Pulse Ox O2 Delivery O2 Flow Rate FiO2 06/17/16 08:42 66 120/58 06/17/16 07:00 97.5 20 94 Room Air 97.5 Input & Output Intake and Output 06/17/16 07:00 Intake Total 3153 ml Output Total 1450 ml Balance 1703 ml Intake Oral 850 ml IV Total 2303 ml Output Urine Total 1450 ml # Voids 1 # Bowel Movements 1 Physical Exam Physical Exam General appearance - alert,well appearing, and in no distress and oriented to person, place, and time Mental Status - alert, oriented to person, place, and time, affect appropriate to mood Head - normal Chest - clear to auscultation, no wheezes, rales or rhonchi, symmetric air entry Heart - S1 and S2 normal Abdomen - soft, nontender, nondistended, no masses or organomegaly Neurological - no acute focal neurological deficit noted. Musculoskeletal - no muscular tenderness noted Extremities - no pedal edema Skin - warm and dry Labs Laboratory Tests Test 06/15/16 12:10 06/15/16 12:35 06/15/16 12:40 06/15/16 14:18 Urine Collection Type U cath Urine Color Kami Urine Clarity Clear Urine pH 5.5 Urine Specific [place] >=1.030 Urine Protein 30mg/dL (NEG-TRACE) Urine Glucose (UA) 100mg/dL (NEG) Urine Ketones (Stick) Tracemg/dL (NEG) Urine Blood Moderate (NEG) Urine Nitrite Negative (NEG) Urine Bilirubin Small (NEG) Urine Urobilinogen Dipstick 0.2mg/dL (0.2 mg/dL) Urine Leukocyte Esterase Negative (NEG) Urine RBC 1-2/HPF (0-2) Urine WBC 1-4/HPF (0-4) Urine Squamous Epithelial Cells Mod/LPF Urine Bacteria 0/HPF (0-FEW) Urine Mucus Mod/LPF Glucose (Fingerstick) 171mg/dL (70-99) White Blood Count 15.3x10^3/uL (4.0-11.0) Red Blood Count 4.07x10^6/uL (4.30-5.70) Hemoglobin 12.8g/dL (13.0-17.5) Hematocrit 38.4% (39.0-53.0) Mean Corpuscular Volume 94fL (79-100) Mean Corpuscular Hemoglobin 31pg (25-35) Mean Corpuscular Hemoglobin Concent 33g/dL (31-37) Red Cell Distribution Width 13.2% (11.5-14.5) Platelet Count 272x10^3/uL (140-400) Neutrophils (%) (Auto) 85% (31-73) Lymphocytes (%) (Auto) 7% (24-48) Monocytes (%) (Auto) 7% (0-9) Eosinophils (%) (Auto) 0% (0-3) Basophils (%) (Auto) 0% (0-3) Neutrophils # (Auto) 13.0x10^3uL (1.8-7.7) Lymphocytes # (Auto) 1.0x10^3/uL (1.0-4.8) Monocytes # (Auto) 1.1x10^3/uL (0.0-1.1) Eosinophils # (Auto) 0.1x10^3/uL (0.0-0.7) Basophils # (Auto) 0.1x10^3/uL (0.0-0.2) Segmented Neutrophils % 69% (35-66) Band Neutrophils % 13% (0-9) Lymphocytes % 8% (24-48) Monocytes % 8% (0-10) Eosinophils % 1% (0-5) Basophils % 1% (0-3) Toxic Granulation Slight Platelet Estimate Adequate (ADEQUATE) Sodium Level 145mmol/L (136-145) Potassium Level 3.5mmol/L (3.5-5.1) Chloride Level 107mmol/L (98-107) Carbon Dioxide Level 26mmol/L (21-32) Anion Gap 12 (6-14) Blood Urea Nitrogen 19mg/dL (8-26) Creatinine 1.0mg/dL (0.7-1.3) Estimated GFR (Cockcroft-Gault) 74.1 Glucose Level 144mg/dL (70-99) Calcium Level 9.1mg/dL (8.5-10.1) Magnesium Level 1.9mg/dL (1.8-2.4) Total Bilirubin 0.7mg/dL (0.2-1.0) Direct Bilirubin 0.1mg/dL (0.0-0.2) Aspartate Amino Transf (AST/SGOT) 37U/L (15-37) Alanine Aminotransferase (ALT/SGPT) 48U/L (16-63) Alkaline Phosphatase 110U/L (46-116) Creatine Kinase 335U/L (39-308) Creatine Kinase MB (Mass) 3.9ng/mL (0.0-3.6) Creatine Kinase MB Relative Index 1.2% (0-4) Troponin I Quantitative 0.032ng/mL (0.000-0.055) BB-Iad-Y-Type Natriuretic Peptide 2790pg/mL (0-124) Total Protein 6.7g/dL (6.4-8.2) Albumin 2.8g/dL (3.4-5.0) Lactic Acid Level 1.2mmol/L (0.4-2.0) Test 06/15/16 22:26 06/16/16 00:55 06/16/16 02:00 06/16/16 07:00 Glucose (Fingerstick) 104mg/dL (70-99) Troponin I Quantitative 0.035ng/mL (0.000-0.055) 0.065ng/mL (0.000-0.055) Nasal Screen MRSA (PCR) Positive (Negative) Sodium Level 146mmol/L (136-145) Potassium Level 3.1mmol/L (3.5-5.1) Chloride Level 111mmol/L (98-107) Carbon Dioxide Level 25mmol/L (21-32) Anion Gap 10 (6-14) Blood Urea Nitrogen 16mg/dL (8-26) Creatinine 0.8mg/dL (0.7-1.3) Estimated GFR (Cockcroft-Gault) 95.8 BUN/Creatinine Ratio 20 (6-20) Glucose Level 110mg/dL (70-99) Calcium Level 8.2mg/dL (8.5-10.1) Total Bilirubin 0.4mg/dL (0.2-1.0) Aspartate Amino Transf (AST/SGOT) 27U/L (15-37) Alanine Aminotransferase (ALT/SGPT) 33U/L (16-63) Alkaline Phosphatase 82U/L (46-116) Total Protein 5.3g/dL (6.4-8.2) Albumin 2.0g/dL (3.4-5.0) Albumin/Globulin Ratio 0.6 (1.0-1.7) Test 06/16/16 07:25 06/16/16 08:40 06/16/16 10:38 06/16/16 16:28 Glucose (Fingerstick) 103mg/dL (70-99) 105mg/dL (70-99) 98mg/dL (70-99) White Blood Count 10.2x10^3/uL (4.0-11.0) Red Blood Count 3.36x10^6/uL (4.30-5.70) Hemoglobin 10.7g/dL (13.0-17.5) Hematocrit 31.9% (39.0-53.0) Mean Corpuscular Volume 95fL (79-100) Mean Corpuscular Hemoglobin 32pg (25-35) Mean Corpuscular Hemoglobin Concent 34g/dL (31-37) Red Cell Distribution Width 13.2% (11.5-14.5) Platelet Count 209x10^3/uL (140-400) Neutrophils (%) (Auto) 78% (31-73) Lymphocytes (%) (Auto) 11% (24-48) Monocytes (%) (Auto) 10% (0-9) Eosinophils (%) (Auto) 2% (0-3) Basophils (%) (Auto) 0% (0-3) Neutrophils # (Auto) 7.9x10^3uL (1.8-7.7) Lymphocytes # (Auto) 1.1x10^3/uL (1.0-4.8) Monocytes # (Auto) 1.0x10^3/uL (0.0-1.1) Eosinophils # (Auto) 0.2x10^3/uL (0.0-0.7) Basophils # (Auto) 0.0x10^3/uL (0.0-0.2) Test 06/16/16 20:30 06/17/16 05:10 06/17/16 07:33 Glucose (Fingerstick) 96mg/dL (70-99) 80mg/dL (70-99) White Blood Count 8.8x10^3/uL (4.0-11.0) Red Blood Count 3.55x10^6/uL (4.30-5.70) Hemoglobin 11.2g/dL (13.0-17.5) Hematocrit 34.2% (39.0-53.0) Mean Corpuscular Volume 96fL (79-100) Mean Corpuscular Hemoglobin 32pg (25-35) Mean Corpuscular Hemoglobin Concent 33g/dL (31-37) Red Cell Distribution Width 13.3% (11.5-14.5) Platelet Count 218x10^3/uL (140-400) Neutrophils (%) (Auto) 73% (31-73) Lymphocytes (%) (Auto) 14% (24-48) Monocytes (%) (Auto) 9% (0-9) Eosinophils (%) (Auto) 4% (0-3) Basophils (%) (Auto) 0% (0-3) Neutrophils # (Auto) 6.4x10^3uL (1.8-7.7) Lymphocytes # (Auto) 1.3x10^3/uL (1.0-4.8) Monocytes # (Auto) 0.8x10^3/uL (0.0-1.1) Eosinophils # (Auto) 0.3x10^3/uL (0.0-0.7) Basophils # (Auto) 0.0x10^3/uL (0.0-0.2) Sodium Level 144mmol/L (136-145) Potassium Level 4.4mmol/L (3.5-5.1) Chloride Level 110mmol/L (98-107) Carbon Dioxide Level 26mmol/L (21-32) Anion Gap 8 (6-14) Blood Urea Nitrogen 10mg/dL (8-26) Creatinine 0.7mg/dL (0.7-1.3) Estimated GFR (Cockcroft-Gault) 111.8 BUN/Creatinine Ratio 14 (6-20) Glucose Level 82mg/dL (70-99) Calcium Level 8.5mg/dL (8.5-10.1) Magnesium Level 1.9mg/dL (1.8-2.4) Total Bilirubin 0.5mg/dL (0.2-1.0) Aspartate Amino Transf (AST/SGOT) 29U/L (15-37) Alanine Aminotransferase (ALT/SGPT) 34U/L (16-63) Alkaline Phosphatase 83U/L (46-116) Total Protein 5.7g/dL (6.4-8.2) Albumin 2.1g/dL (3.4-5.0) Albumin/Globulin Ratio 0.6 (1.0-1.7) Laboratory Tests Test 06/16/16 10:38 06/16/16 16:28 06/16/16 20:30 06/17/16 05:10 Glucose (Fingerstick) 105mg/dL (70-99) 98mg/dL (70-99) 96mg/dL (70-99) White Blood Count 8.8x10^3/uL (4.0-11.0) Red Blood Count 3.55x10^6/uL (4.30-5.70) Hemoglobin 11.2g/dL (13.0-17.5) Hematocrit 34.2% (39.0-53.0) Mean Corpuscular Volume 96fL (79-100) Mean Corpuscular Hemoglobin 32pg (25-35) Mean Corpuscular Hemoglobin Concent 33g/dL (31-37) Red Cell Distribution Width 13.3% (11.5-14.5) Platelet Count 218x10^3/uL (140-400) Neutrophils (%) (Auto) 73% (31-73) Lymphocytes (%) (Auto) 14% (24-48) Monocytes (%) (Auto) 9% (0-9) Eosinophils (%) (Auto) 4% (0-3) Basophils (%) (Auto) 0% (0-3) Neutrophils # (Auto) 6.4x10^3uL (1.8-7.7) Lymphocytes # (Auto) 1.3x10^3/uL (1.0-4.8) Monocytes # (Auto) 0.8x10^3/uL (0.0-1.1) Eosinophils # (Auto) 0.3x10^3/uL (0.0-0.7) Basophils # (Auto) 0.0x10^3/uL (0.0-0.2) Sodium Level 144mmol/L (136-145) Potassium Level 4.4mmol/L (3.5-5.1) Chloride Level 110mmol/L (98-107) Carbon Dioxide Level 26mmol/L (21-32) Anion Gap 8 (6-14) Blood Urea Nitrogen 10mg/dL (8-26) Creatinine 0.7mg/dL (0.7-1.3) Estimated GFR (Cockcroft-Gault) 111.8 BUN/Creatinine Ratio 14 (6-20) Glucose Level 82mg/dL (70-99) Calcium Level 8.5mg/dL (8.5-10.1) Magnesium Level 1.9mg/dL (1.8-2.4) Total Bilirubin 0.5mg/dL (0.2-1.0) Aspartate Amino Transf (AST/SGOT) 29U/L (15-37) Alanine Aminotransferase (ALT/SGPT) 34U/L (16-63) Alkaline Phosphatase 83U/L (46-116) Total Protein 5.7g/dL (6.4-8.2) Albumin 2.1g/dL (3.4-5.0) Albumin/Globulin Ratio 0.6 (1.0-1.7) Test 06/17/16 07:33 Glucose (Fingerstick) 80mg/dL (70-99) Meds Current Medications Acetaminophen/ Hydrocodone Bitart (Lortab 7.5/325) 1 tab PRN Q4HRS PRN PO PAIN Last administered on 06/17/16 08:43; Start 06/17/16 at 08:30 Atorvastatin Calcium (Lipitor) 40 mg HS PO Last administered on 06/16/16 20:51 ; Start 06/16/16 at 21:00 Levothyroxine Sodium (Synthroid) 88 mcg DAILY07 PO Last administered on 07:24; Start 06/16/16 at 10:30 Assessment Assessment 1. R hip acute on chronic pain post fall from WC 2. R hip wound with wound vac POA 3. hypotension with low grade fever POA 4. CHF EF 35-40% per ECHO stable at admission, not acute 5. DM II with neuropathy insulin controlled, 6. hyperlipidemia 7. anemia chronic B12 deficiency 8. CAD with h/o ND, CABG x4 9. Rheumatoid arthritis 10. 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 diverticulosis 12. severe depression single episode mildly active 13 CKD II 14. severe weakness and debility 15. abnormal troponin with elevated CPK CK MB cardiac normal 16, severe weakness and debility 17. severe PCL malnutrition with trace ketonuria 18. seborrheic dermatitis 19. OA R hip severe 20. 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 Polyarthralgia. 29. Primary polyarticular osteoarthritis. 30 DMARD monitoring. 31. Chronic nonsteroidal antiinflammatory drug use. 32. R hip decubitus ulcer stage III s/p debridement 04/14/16 PLAN: R hip pain acute on chronic consult Dr. Chen R hip xray severe OA with h/o avascular necrosis with shortening deformity of the R thigh abnormal troponin Admit 0.035 06/16 0.065 CK 335 CK MB (mass 3.9) MB II WNL consult cardiology EKG on admission SR without acute changes, repeat EKG this AM 06/16 negative cardiac event leukocytosis, hypotension, low grade temp BC x2 consult ID wound care consult for wound vac UA hematuria, neg WBC, trace ketones IVF 1/2 NS with addition 40 KCL (06/16) 100cc/hr CKD II Admit BUN 19 06/17 10 Cr 1.0 0.7 Na 145 146 K 3.5 4.4 replace KCL 40meq oral x 1 Add 40 meq to IVF and change to 1/2 NS Decrease IV from 150cc/hr to 100cc/hr CHF stable systolic Admit weight 164# 06/17 170# IO Daily wt BNP 2790 without symptoms/CXR clear anemia Admit Hgb 12.8 06/17 11.2 DM II Levemir SSI/FSBS BS 80-105 severe PCL malnutrition supplementation ADA diet DVT/GI prophylaxis SCD/CARLEY Lovenox PPI For more details regarding further plans, please refer to the orders. Cannot afford NH. Will plan DC home with HHN PT OT Plan Plan For more details regarding further plans, please refer to the orders. FEROZ ESPOSITO MD 06/17/16 1035: IM PROGRESS NOTES- Assessment Assessment Patient wants to go to his apt only.Does not want hospice. wants rt hip surgery later.Feels better. The patient was seen and examined by me. Chart reviewed and plan of care formulated. Discussed with, reviewed and agree with VP TREASURER's notes, plan of care and orders with modifications as necessary. Discharge Management - 35 minutes. HERNANDEZ WARD APRN Jun 17, 2016 09:16 FEROZ ESPOSITO MD Jun 17, 2016 10:35
--- NOTE | 2016-06-17 09:18 | DISCH ---
DISCHARGE INSTRUCTIONS Condition on Discharge Condition on Discharge: Stable Activity After Discharge Activity Instructions for Disc: Activity as tolerated Diet after Discharge Diet after Discharge: Cardiac Wound Incision Care Other wound/incision instructi: Wound vac-change MWF Checks after Discharge DC Comment: Check Blood sugar with breakfast and dinner Community/Resources/Services Services at Discharge: Home Health Care Services, PT EVALUATE & TREAT, OT Evaluate & Treat Contacting the DRMerlene after DC Call your doctor for: Concerns you may have Follow-Up Follow up with: Dr. Blackman in 3-5 days Treatment/Equipment after DC Adaptive Equipment Issued: [employer] HERNANDEZ WARD APRN Jun 17, 2016 09:18
--- NOTE | 2016-06-17 09:22 | DISCH ---
DISCHARGE WITH HOME HEALTH DISCHARGE INFORMATION: Final Diagnosis: Problems Medical Problems: (1) Dehydration Status: Acute (2) Generalized weakness Status: Acute (3) Right hip pain Status: Acute Condition on Discharge: Stable HOME HEALTH: Face to Face: I certify this patient is under my care and that I, or a nurse practitioner or physician's judicial assistant working with me, had a face to face encounter that meets the physician face to face encounter requirements with this patient on 06/17/16. Medical Condition(s): Other Assisted For: Wound Vac Physical Therapy For: Evalulation/Treatment Occupational Therapy For: Evaluation/Treatment [employer] For: Community Resources Patient meets Homebound Statu: Frequent falls w/ injury FOLLOW-UP: Follow up with: Dr. Blackman in 3-5 days TREATMENT/EQUIPMENT ORDERS Adaptive Equipment Issued: Wheelchair CERTIFICATION STATEMENT: Certification Statement: Certification Statement: Based on the above finding, I certify that this patient is confined to the home and needs intermittent correction care, physical therapy and/or speech therapy, or continues to need occupational therapy.~ This patient is under my care, and I have initiated the establishment of the plan of care.~ This patient will be followed by myself or a community physician who will periodically review the plan of care. HERNANDEZ WARD APRN Jun 17, 2016 09:22
--- NOTE | 2016-06-17 10:20 | PDOC ---
PROGRESS NOTES Subjective Subjective No new complaints. Objective Objective Vital Signs Date Time Temp Pulse Resp B/P Pulse Ox O2 Delivery O2 Flow Rate FiO2 06/17/16 08:42 66 120/58 06/17/16 07:00 97.5 20 94 Room Air 97.5 Intake and Output 06/17/16 07:00 Intake Total 3153 ml Output Total 1450 ml Balance 1703 ml Intake Oral 850 ml IV Total 2303 ml Output Urine Total 1450 ml # Voids 1 # Bowel Movements 1 Physical Exam Physical Exam He is supine in bed and comfortable and dressing in place to right heel and wound vac in place to right trochanteric bursa. Assessment Assessment Problems Medical Problems: (1) Dehydration Status: Acute (2) Generalized weakness Status: Acute (3) Right hip pain Status: Acute Plan Plan of Care Agree with plans for home with home health as he could not afford financially to go to [place]. Comment Review of Relevant I have reviewed the following items rodolfo (where applicable) has been applied. Labs Laboratory Tests Test 06/15/16 12:10 06/15/16 12:35 06/15/16 12:40 06/15/16 14:18 Urine Collection Type U cath Urine Color Kami Urine Clarity Clear Urine pH 5.5 Urine Specific [place] >=1.030 Urine Protein 30mg/dL (NEG-TRACE) Urine Glucose (UA) 100mg/dL (NEG) Urine Ketones (Stick) Tracemg/dL (NEG) Urine Blood Moderate (NEG) Urine Nitrite Negative (NEG) Urine Bilirubin Small (NEG) Urine Urobilinogen Dipstick 0.2mg/dL (0.2 mg/dL) Urine Leukocyte Esterase Negative (NEG) Urine RBC 1-2/HPF (0-2) Urine WBC 1-4/HPF (0-4) Urine Squamous Epithelial Cells Mod/LPF Urine Bacteria 0/HPF (0-FEW) Urine Mucus Mod/LPF Glucose (Fingerstick) 171mg/dL (70-99) White Blood Count 15.3x10^3/uL (4.0-11.0) Red Blood Count 4.07x10^6/uL (4.30-5.70) Hemoglobin 12.8g/dL (13.0-17.5) Hematocrit 38.4% (39.0-53.0) Mean Corpuscular Volume 94fL (79-100) Mean Corpuscular Hemoglobin 31pg (25-35) Mean Corpuscular Hemoglobin Concent 33g/dL (31-37) Red Cell Distribution Width 13.2% (11.5-14.5) Platelet Count 272x10^3/uL (140-400) Neutrophils (%) (Auto) 85% (31-73) Lymphocytes (%) (Auto) 7% (24-48) Monocytes (%) (Auto) 7% (0-9) Eosinophils (%) (Auto) 0% (0-3) Basophils (%) (Auto) 0% (0-3) Neutrophils # (Auto) 13.0x10^3uL (1.8-7.7) Lymphocytes # (Auto) 1.0x10^3/uL (1.0-4.8) Monocytes # (Auto) 1.1x10^3/uL (0.0-1.1) Eosinophils # (Auto) 0.1x10^3/uL (0.0-0.7) Basophils # (Auto) 0.1x10^3/uL (0.0-0.2) Segmented Neutrophils % 69% (35-66) Band Neutrophils % 13% (0-9) Lymphocytes % 8% (24-48) Monocytes % 8% (0-10) Eosinophils % 1% (0-5) Basophils % 1% (0-3) Toxic Granulation Slight Platelet Estimate Adequate (ADEQUATE) Sodium Level 145mmol/L (136-145) Potassium Level 3.5mmol/L (3.5-5.1) Chloride Level 107mmol/L (98-107) Carbon Dioxide Level 26mmol/L (21-32) Anion Gap 12 (6-14) Blood Urea Nitrogen 19mg/dL (8-26) Creatinine 1.0mg/dL (0.7-1.3) Estimated GFR (Cockcroft-Gault) 74.1 Glucose Level 144mg/dL (70-99) Calcium Level 9.1mg/dL (8.5-10.1) Magnesium Level 1.9mg/dL (1.8-2.4) Total Bilirubin 0.7mg/dL (0.2-1.0) Direct Bilirubin 0.1mg/dL (0.0-0.2) Aspartate Amino Transf (AST/SGOT) 37U/L (15-37) Alanine Aminotransferase (ALT/SGPT) 48U/L (16-63) Alkaline Phosphatase 110U/L (46-116) Creatine Kinase 335U/L (39-308) Creatine Kinase MB (Mass) 3.9ng/mL (0.0-3.6) Creatine Kinase MB Relative Index 1.2% (0-4) Troponin I Quantitative 0.032ng/mL (0.000-0.055) YP-Lce-U-Type Natriuretic Peptide 2790pg/mL (0-124) Total Protein 6.7g/dL (6.4-8.2) Albumin 2.8g/dL (3.4-5.0) Lactic Acid Level 1.2mmol/L (0.4-2.0) Test 06/15/16 22:26 06/16/16 00:55 06/16/16 02:00 06/16/16 07:00 Glucose (Fingerstick) 104mg/dL (70-99) Troponin I Quantitative 0.035ng/mL (0.000-0.055) 0.065ng/mL (0.000-0.055) Nasal Screen MRSA (PCR) Positive (Negative) Sodium Level 146mmol/L (136-145) Potassium Level 3.1mmol/L (3.5-5.1) Chloride Level 111mmol/L (98-107) Carbon Dioxide Level 25mmol/L (21-32) Anion Gap 10 (6-14) Blood Urea Nitrogen 16mg/dL (8-26) Creatinine 0.8mg/dL (0.7-1.3) Estimated GFR (Cockcroft-Gault) 95.8 BUN/Creatinine Ratio 20 (6-20) Glucose Level 110mg/dL (70-99) Calcium Level 8.2mg/dL (8.5-10.1) Total Bilirubin 0.4mg/dL (0.2-1.0) Aspartate Amino Transf (AST/SGOT) 27U/L (15-37) Alanine Aminotransferase (ALT/SGPT) 33U/L (16-63) Alkaline Phosphatase 82U/L (46-116) Total Protein 5.3g/dL (6.4-8.2) Albumin 2.0g/dL (3.4-5.0) Albumin/Globulin Ratio 0.6 (1.0-1.7) Test 06/16/16 07:25 06/16/16 08:40 06/16/16 10:38 06/16/16 16:28 Glucose (Fingerstick) 103mg/dL (70-99) 105mg/dL (70-99) 98mg/dL (70-99) White Blood Count 10.2x10^3/uL (4.0-11.0) Red Blood Count 3.36x10^6/uL (4.30-5.70) Hemoglobin 10.7g/dL (13.0-17.5) Hematocrit 31.9% (39.0-53.0) Mean Corpuscular Volume 95fL (79-100) Mean Corpuscular Hemoglobin 32pg (25-35) Mean Corpuscular Hemoglobin Concent 34g/dL (31-37) Red Cell Distribution Width 13.2% (11.5-14.5) Platelet Count 209x10^3/uL (140-400) Neutrophils (%) (Auto) 78% (31-73) Lymphocytes (%) (Auto) 11% (24-48) Monocytes (%) (Auto) 10% (0-9) Eosinophils (%) (Auto) 2% (0-3) Basophils (%) (Auto) 0% (0-3) Neutrophils # (Auto) 7.9x10^3uL (1.8-7.7) Lymphocytes # (Auto) 1.1x10^3/uL (1.0-4.8) Monocytes # (Auto) 1.0x10^3/uL (0.0-1.1) Eosinophils # (Auto) 0.2x10^3/uL (0.0-0.7) Basophils # (Auto) 0.0x10^3/uL (0.0-0.2) Test 06/16/16 20:30 06/17/16 05:10 06/17/16 07:33 Glucose (Fingerstick) 96mg/dL (70-99) 80mg/dL (70-99) White Blood Count 8.8x10^3/uL (4.0-11.0) Red Blood Count 3.55x10^6/uL (4.30-5.70) Hemoglobin 11.2g/dL (13.0-17.5) Hematocrit 34.2% (39.0-53.0) Mean Corpuscular Volume 96fL (79-100) Mean Corpuscular Hemoglobin 32pg (25-35) Mean Corpuscular Hemoglobin Concent 33g/dL (31-37) Red Cell Distribution Width 13.3% (11.5-14.5) Platelet Count 218x10^3/uL (140-400) Neutrophils (%) (Auto) 73% (31-73) Lymphocytes (%) (Auto) 14% (24-48) Monocytes (%) (Auto) 9% (0-9) Eosinophils (%) (Auto) 4% (0-3) Basophils (%) (Auto) 0% (0-3) Neutrophils # (Auto) 6.4x10^3uL (1.8-7.7) Lymphocytes # (Auto) 1.3x10^3/uL (1.0-4.8) Monocytes # (Auto) 0.8x10^3/uL (0.0-1.1) Eosinophils # (Auto) 0.3x10^3/uL (0.0-0.7) Basophils # (Auto) 0.0x10^3/uL (0.0-0.2) Sodium Level 144mmol/L (136-145) Potassium Level 4.4mmol/L (3.5-5.1) Chloride Level 110mmol/L (98-107) Carbon Dioxide Level 26mmol/L (21-32) Anion Gap 8 (6-14) Blood Urea Nitrogen 10mg/dL (8-26) Creatinine 0.7mg/dL (0.7-1.3) Estimated GFR (Cockcroft-Gault) 111.8 BUN/Creatinine Ratio 14 (6-20) Glucose Level 82mg/dL (70-99) Calcium Level 8.5mg/dL (8.5-10.1) Magnesium Level 1.9mg/dL (1.8-2.4) Total Bilirubin 0.5mg/dL (0.2-1.0) Aspartate Amino Transf (AST/SGOT) 29U/L (15-37) Alanine Aminotransferase (ALT/SGPT) 34U/L (16-63) Alkaline Phosphatase 83U/L (46-116) Total Protein 5.7g/dL (6.4-8.2) Albumin 2.1g/dL (3.4-5.0) Albumin/Globulin Ratio 0.6 (1.0-1.7) Laboratory Tests Test 06/16/16 10:38 06/16/16 16:28 06/16/16 20:30 06/17/16 05:10 Glucose (Fingerstick) 105mg/dL (70-99) 98mg/dL (70-99) 96mg/dL (70-99) White Blood Count 8.8x10^3/uL (4.0-11.0) Red Blood Count 3.55x10^6/uL (4.30-5.70) Hemoglobin 11.2g/dL (13.0-17.5) Hematocrit 34.2% (39.0-53.0) Mean Corpuscular Volume 96fL (79-100) Mean Corpuscular Hemoglobin 32pg (25-35) Mean Corpuscular Hemoglobin Concent 33g/dL (31-37) Red Cell Distribution Width 13.3% (11.5-14.5) Platelet Count 218x10^3/uL (140-400) Neutrophils (%) (Auto) 73% (31-73) Lymphocytes (%) (Auto) 14% (24-48) Monocytes (%) (Auto) 9% (0-9) Eosinophils (%) (Auto) 4% (0-3) Basophils (%) (Auto) 0% (0-3) Neutrophils # (Auto) 6.4x10^3uL (1.8-7.7) Lymphocytes # (Auto) 1.3x10^3/uL (1.0-4.8) Monocytes # (Auto) 0.8x10^3/uL (0.0-1.1) Eosinophils # (Auto) 0.3x10^3/uL (0.0-0.7) Basophils # (Auto) 0.0x10^3/uL (0.0-0.2) Sodium Level 144mmol/L (136-145) Potassium Level 4.4mmol/L (3.5-5.1) Chloride Level 110mmol/L (98-107) Carbon Dioxide Level 26mmol/L (21-32) Anion Gap 8 (6-14) Blood Urea Nitrogen 10mg/dL (8-26) Creatinine 0.7mg/dL (0.7-1.3) Estimated GFR (Cockcroft-Gault) 111.8 BUN/Creatinine Ratio 14 (6-20) Glucose Level 82mg/dL (70-99) Calcium Level 8.5mg/dL (8.5-10.1) Magnesium Level 1.9mg/dL (1.8-2.4) Total Bilirubin 0.5mg/dL (0.2-1.0) Aspartate Amino Transf (AST/SGOT) 29U/L (15-37) Alanine Aminotransferase (ALT/SGPT) 34U/L (16-63) Alkaline Phosphatase 83U/L (46-116) Total Protein 5.7g/dL (6.4-8.2) Albumin 2.1g/dL (3.4-5.0) Albumin/Globulin Ratio 0.6 (1.0-1.7) Test 06/17/16 07:33 Glucose (Fingerstick) 80mg/dL (70-99) Microbiology 06/16/16 Blood Culture - Preliminary, Resulted NO GROWTH AFTER 1 DAY Medications Current Medications Sodium Chloride 1,000 ml @ 1,000 mls/hr Q1H IV Last administered on 06/15/16 12:41; Start 06/15/16 at 12:00; Stop 06/15/16 at 12:59; Status DC Sodium Chloride (Iv Sodium Chloride 0.9% 1000ml Bag) 1,000 ml @ 1,000 mls/hr 1X ONCE IV ; Start 06/15/16 at 14:30; Stop 06/16/16 at 09:02; Status DC Ondansetron HCl 4 mg 4 mg PRN Q8HRS PRN IV NAUSEA/VOMITING; Start 06/15/16 at 19:00; Stop 06/16/16 at 18:59; Status DC Sodium Chloride (Iv Sodium Chloride 0.9% 1000ml Bag) 1,000 ml @ 150 mls/hr Q6H40M IV Last administered on 06/16/16 02:27; Start 06/15/16 at 18:59; Stop 06/16/16 at 08:40; Status DC Acetaminophen 650 mg 650 mg PRN Q4HRS PRN PO FEVER; Start 06/15/16 at 19:00; Stop 06/16/16 at 18:59; Status DC Sodium Chloride (Iv Sodium Chloride 0.9% 1000ml Bag) 1,000 ml @ 100 mls/hr Q10H IV ; Start 06/16/16 at 08:45; Stop 06/16/16 at 08:45; Status DC Amiodarone HCl (Cordarone) 200 mg DAILY PO Last administered on 06/17/16 08:42 ; Start 06/16/16 at 09:00 Atorvastatin Calcium (Lipitor) 40 mg HS PO Last administered on 06/16/16 20:51 ; Start 06/16/16 at 21:00 Carvedilol (Coreg) 3.125 mg BIDWMEALS PO Last administered on 06/17/16 08:42; Start 06/16/16 at 09:00 Clopidogrel Bisulfate (Plavix) 75 mg DAILY PO Last administered on 06/17/16 08 :42; Start 06/16/16 at 09:00 Enoxaparin Sodium (Lovenox 40mg Syringe) 40 mg Q24H SQ Last administered on 08:41; Start 06/16/16 at 09:00 Hydroxychloroquine Sulfate (Plaquenil) 200 mg BID PO Last administered on 08:43; Start 06/16/16 at 09:00 Ketoconazole (Nizoral 2% Shampoo) 1 mari DAILY TP Last administered on 09:00; Start 06/16/16 at 09:00 Levothyroxine Sodium (Synthroid) 88 mcg DAILY07 PO Last administered on 07:24; Start 06/16/16 at 10:30 Pantoprazole Sodium (Protonix) 40 mg DAILYAC PO Last administered on 06/17/16 07:24; Start 06/16/16 at 09:00 Polyethylene Glycol (miraLAX PACKET) 17 gm PRN DAILY PRN PO CONSTIPATION; Start 06/16/16 at 08:45 Potassium Chloride (Klor-Con) 40 meq BIDWMEALS PO Last administered on 08:43; Start 06/16/16 at 09:00 Prednisone (Prednisone) 5 mg DAILY PO Last administered on 06/17/16 08:43; Start 06/16/16 at 09:00 Senna/Docusate Sodium 1 tab 1 tab DAILY PO ; Start 06/16/16 at 09:00 Potassium Chloride/Sodium Chloride (Iv Sodium Chloride 0.45%) 1,020 ml @ 100 mls/hr [id number] IV Last administered on 06/17/16 07:26; Start 06/16/16 at 09:00 Potassium Chloride (Klor-Con) 40 meq 1X ONCE PO Last administered on 09:58; Start 06/16/16 at 09:00; Stop 06/16/16 at 09:05; Status DC Acetaminophen/ Hydrocodone Bitart (Lortab 7.5/325) 1 tab PRN Q4HRS PRN PO PAIN Last administered on 06/17/16 08:43; Start 06/17/16 at 08:30 Active Scripts Active Hydroxychloroquine Sulfate 200 Mg Tablet 200 Mg PO BID Ketoconazole 120 Ml Shampoo 1 Mari TP DAILY Klor-Con M20 (Potassium Chloride) 20 Meq Tab.er.prt 40 Meq PO BIDWMEALS Carvedilol 3.125 Mg Tablet 3.125 Mg PO BIDWMEALS Senna-Time S Tablet (Sennosides/Docusate Sodium) 1 Each Tablet 1 Tab PO DAILY Miralax (Polyethylene Glycol 3350) 17 Gm Powd.pack 17 Gm PO PRN DAILY PRN Pantoprazole Sodium 40 Mg Tablet.dr 40 Mg PO DAILY Synthroid (Levothyroxine Sodium) 88 Mcg Tablet 88 Mcg PO DAILY07 Hydrocodone-Apap 7.5-325 (Hydrocodone Bit/Acetaminophen) 1 Each Tablet 1 Tab PO PRN Q4HRS PRN Reported Prednisone 5 Mg Tablet 5 Mg PO DAILY Lipitor (Atorvastatin Calcium) 40 Mg Tablet 40 Mg PO HS Amiodarone Hcl 200 Mg Tablet 200 Mg PO DAILY Clopidogrel (Clopidogrel Bisulfate) 75 Mg Tablet 75 Mg PO DAILY Vitals/I & O Vital Sign - Last 24 Hours 06/16/16 06/16/16 06/16/16 06/16/16 10:53 14:28 17:00 19:00 Temp 97.6 98.5 98.4 97.6 98.5 98.4 Pulse 73 69 69 67 Resp 20 20 18 B/P 95/36 97/52 97/52 104/54 Pulse Ox 93 93 94 O2 Delivery Room Air Room Air 06/16/16 06/16/16 06/17/16 06/17/16 20:00 23:00 03:00 07:00 Temp 97.9 97.3 97.5 97.9 97.3 97.5 Pulse 63 64 66 Resp 16 18 20 B/P 132/58 120/58 120/58 Pulse Ox 100 93 94 O2 Delivery Room Air Room Air 06/17/16 06/17/16 08:42 08:42 Pulse 66 66 B/P 120/58 120/58 Intake and Output 06/16/16 06/16/16 06/17/16 15:00 23:00 07:00 Intake Total 30 ml 1770 ml 1353 ml Output Total 300 ml 650 ml 500 ml Balance -270 ml 1120 ml 853 ml VINNY MENDIOLA MD Jun 17, 2016 10:20
[2016-06-17 10:48] VITALS: BP 105/55
--- NOTE | 2016-06-17 12:12 | PDOC ---
CARDIO Progress Notes Date and Time Date of Service 06/17/16 Time of Evaluation 1220 Subjective Subjective: No Chest Pain, No shortness of breath Vitals Vitals Vital Signs Date Time Temp Pulse Resp B/P Pulse Ox O2 Delivery O2 Flow Rate FiO2 06/17/16 10:48 97.8 65 20 105/55 97 Room Air 97.8 Weight Weight [ ] Input and Output Intake and Output Intake and Output 06/17/16 07:00 Intake Total 3153 ml Output Total 1450 ml Balance 1703 ml Intake Oral 850 ml IV Total 2303 ml Output Urine Total 1450 ml # Voids 1 # Bowel Movements 1 Laboratory Labs Laboratory Tests Test 06/16/16 16:28 06/16/16 20:30 06/17/16 05:10 06/17/16 07:33 Glucose (Fingerstick) 98mg/dL (70-99) 96mg/dL (70-99) 80mg/dL (70-99) White Blood Count 8.8x10^3/uL (4.0-11.0) Red Blood Count 3.55x10^6/uL (4.30-5.70) Hemoglobin 11.2g/dL (13.0-17.5) Hematocrit 34.2% (39.0-53.0) Mean Corpuscular Volume 96fL (79-100) Mean Corpuscular Hemoglobin 32pg (25-35) Mean Corpuscular Hemoglobin Concent 33g/dL (31-37) Red Cell Distribution Width 13.3% (11.5-14.5) Platelet Count 218x10^3/uL (140-400) Neutrophils (%) (Auto) 73% (31-73) Lymphocytes (%) (Auto) 14% (24-48) Monocytes (%) (Auto) 9% (0-9) Eosinophils (%) (Auto) 4% (0-3) Basophils (%) (Auto) 0% (0-3) Neutrophils # (Auto) 6.4x10^3uL (1.8-7.7) Lymphocytes # (Auto) 1.3x10^3/uL (1.0-4.8) Monocytes # (Auto) 0.8x10^3/uL (0.0-1.1) Eosinophils # (Auto) 0.3x10^3/uL (0.0-0.7) Basophils # (Auto) 0.0x10^3/uL (0.0-0.2) Sodium Level 144mmol/L (136-145) Potassium Level 4.4mmol/L (3.5-5.1) Chloride Level 110mmol/L (98-107) Carbon Dioxide Level 26mmol/L (21-32) Anion Gap 8 (6-14) Blood Urea Nitrogen 10mg/dL (8-26) Creatinine 0.7mg/dL (0.7-1.3) Estimated GFR (Cockcroft-Gault) 111.8 BUN/Creatinine Ratio 14 (6-20) Glucose Level 82mg/dL (70-99) Calcium Level 8.5mg/dL (8.5-10.1) Magnesium Level 1.9mg/dL (1.8-2.4) Total Bilirubin 0.5mg/dL (0.2-1.0) Aspartate Amino Transf (AST/SGOT) 29U/L (15-37) Alanine Aminotransferase (ALT/SGPT) 34U/L (16-63) Alkaline Phosphatase 83U/L (46-116) Total Protein 5.7g/dL (6.4-8.2) Albumin 2.1g/dL (3.4-5.0) Albumin/Globulin Ratio 0.6 (1.0-1.7) Test 06/17/16 10:40 Glucose (Fingerstick) 94mg/dL (70-99) Microbiology Micro Microbiology 06/16/16 Blood Culture - Preliminary, Resulted NO GROWTH AFTER 1 DAY Physical Exam HEENT: Neck Supple W Full Motion Chest: Symmetric Heart: S1S2, RRR Abdomen: Soft N/T Extremities: Other (bi UE edema with multiple ecchymotic areas; abrasion to L post forearm; DRSG intact to L elbow, L BKA ) Neurology: alert, oriented, follow commands Assessment Assessment 1. elevated troponin 2. falls 3. CAD s/p remote CABG 4. ischemic CMP 5. HLD 6. DM, II Recommendations Clinically compensated Caution ongoing IVF Continue supportive care Elevation upper extremities Okay to discharge from CV perspective LULY SUAREZ APRN Jun 17, 2016 12:12
[2016-06-17 14:36] VITALS: BP 103/52
== END 2016-06-17 16:25 | disposition home health service (06) | DRG 555 ==
LOC: ER 11:30 → 5 SOUTH 19:00
PROVIDERS: ADMIT Internal Medicine; ATTEND Internal Medicine
DX: M25.551 Pain in right hip (principal); E43 Unspecified severe protein-calorie malnutrition; L89.213 Pressure ulcer of right hip, stage 3; I50.22 Chronic systolic (congestive) heart failure; I13.0 Hypertensive heart and chronic kidney disease with heart failure and stage 1 through stage 4 chronic kidney disease, or unspecified chronic kidney disease; D64.9 Anemia, unspecified; D72.829 Elevated white blood cell count, unspecified; E03.9 Hypothyroidism, unspecified; E11.22 Type 2 diabetes mellitus with diabetic chronic kidney disease; E11.42 Type 2 diabetes mellitus with diabetic polyneuropathy; E11.69 Type 2 diabetes mellitus with other specified complication; E78.5 Hyperlipidemia, unspecified; F32.9 Major depressive disorder, single episode, unspecified; G89.29 Other chronic pain; I25.10 Atherosclerotic heart disease of native coronary artery without angina pectoris; I25.5 Ischemic cardiomyopathy; K21.9 Gastro-esophageal reflux disease without esophagitis; M06.9 Rheumatoid arthritis, unspecified; K57.90 Diverticulosis of intestine, part unspecified, without perforation or abscess without bleeding; E86.0 Dehydration; M16.11 Unilateral primary osteoarthritis, right hip; M16.12 Unilateral primary osteoarthritis, left hip; E53.8 Deficiency of other specified B group vitamins; I95.9 Hypotension, unspecified; N18.2 Chronic kidney disease, stage 2 (mild); Z79.1 Long term (current) use of non-steroidal anti-inflammatories (NSAID); I25.2 Old myocardial infarction; Z79.4 Long term (current) use of insulin; Z80.9 Family history of malignant neoplasm, unspecified; Z82.49 Family history of ischemic heart disease and other diseases of the circulatory system; Z83.3 Family history of diabetes mellitus; Z86.14 Personal history of Methicillin resistant Staphylococcus aureus infection; Z86.19 Personal history of other infectious and parasitic diseases; Z87.440 Personal history of urinary (tract) infections; Z87.891 Personal history of nicotine dependence; Z89.511 Acquired absence of right leg below knee; Z89.512 Acquired absence of left leg below knee; Z95.0 Presence of cardiac pacemaker; Z95.1 Presence of aortocoronary bypass graft; Z87.01 Personal history of pneumonia (recurrent)
CPT/HCPCS: 36415; 70450; 71010; 72125; 73502; 80048; 80053; 80076; 81001; 82553; 82947; 83605; 83735; 83880; 84484; 85007; 85027; 87040; 87641; 93005; 96360; J1650; J3480; J7030; J7512; 99285-25

== ENCOUNTER 2016-06-18 10:54 | Inpatient (IN) | payer MEDICARE ==
[~2016-06-18] VITALS: Ht 157.5 cm; Wt 67.3 kg
--- NOTE | 2016-06-18 11:42 | PHYS DOC ---
Past Medical History Past Medical History: CAD, Constipation, Diabetes-Type II, GERD, High Cholesterol, Hypertension, Hypothyroid, MT, Other Additional Past Medical Histor: RA Past Surgical History: Coronary Bypass Surgery, Tonsillectomy Additional Past Surgical Histo: multiple toe amputations, cataracts, LBKA Alcohol Use: None Drug Use: None Adult General Chief Complaint Chief Complaint: NAUSEA/VOMITING/DIARRHA HPI HPI Patient is a 71 year old male who presents with complaint of vomiting and diarrhea. Patient states that his symptoms started yesterday. The patient was recently admitted to the hospital on June 15, 2016 and treated for generalized weakness and right hip pain. The patient was evaluated and recommended to be transitioned to skilled nursing placement yesterday, however the patient refused this and wished to go home. Patient was discharged home yesterday with plans for home health nursing. Patient states that shortly after arriving at home he started having numerous episodes of vomiting and diarrhea. Patient states that he has been unable to get himself up to the bathroom secondary to his symptoms. 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 Patient is wheelchair dependent. Due to severe weakness the patient contacted EMS who brought the patient here for further evaluation. Patient denies any pain or fever currently. Review of Systems Review of Systems Constitutional: Generalized weakness, Denies fever or chills [] Eyes: Denies change in visual acuity, redness, or eye pain [] HENT: Denies nasal congestion or sore throat [] Respiratory: Denies cough or shortness of breath [] Cardiovascular: Denies chest pain or edema [] GI: Nausea, vomiting, diarrhea, denies abdominal pain or bloody stools [] : Denies dysuria or hematuria [] Musculoskeletal: Denies back pain or joint pain [] Integument: Denies rash or skin lesions [] Neurologic: Denies headache, focal weakness or sensory changes [] Current Medications Current Medications Current Medications Medications (Trade) Dose Ordered Sig/Juan R Start Time Stop Time Status Last Admin Dose Admin Famotidine 20 mg 20 mg 1X ONCE 06/18/16 12:15 06/18/16 12:16 DC 06/18/16 12:31 20 MG Ondansetron HCl (Zofran) 4 mg 1X ONCE 06/18/16 12:15 06/18/16 12:16 DC 06/18/16 12:32 4 MG Sodium Chloride (Iv Sodium Chloride 0.9% 500ml Bag) 500 ml @ 500 mls/hr 1X ONCE 06/18/16 12:15 06/18/16 13:14 DC 06/18/16 12:30 500 MLS/HR Sodium Chloride (Iv Sodium Chloride 0.9% 1000ml Bag) 1,000 ml @ 100 mls/hr Q10H 06/18/16 12:15 06/18/16 22:14 06/18/16 13:22 100 MLS/HR Allergies Allergies Allergies Coded Allergies Type Severity Reaction Last Updated Verified I S O L A T I O N *CONTACT* Allergy Unknown 04/14/16 Yes No Known Medication Allergies Allergy Unknown 04/14/16 Yes Physical Exam Physical Exam Constitutional: Alert, afebrile, covered in fecal material, appears ill. [] HENT: Normocephalic, atraumatic, bilateral external ears normal, oropharynx dry , no oral exudates, nose normal. [] Eyes: PERRLA, EOMI, conjunctiva normal, no discharge. [] Neck: Normal range of motion, no tenderness, supple, no stridor. [] Cardiovascular: Regular rate and rhythm, no murmur [] Lungs & Thorax: Bilateral breath sounds clear to auscultation [] Abdomen: Bowel sounds normal, soft, no tenderness, no masses, no pulsatile masses. [] Skin: Warm, dry, no erythema, no rash. [] Back: No tenderness, no CVA tenderness. [] Extremities: Right hip dressings appear intact, right hip, no cyanosis, no clubbing, ROM intact, no edema. [] Neurologic: Alert and oriented X 3, normal motor function, normal sensory function, no focal deficits noted. [] Current Patient Data Vital Signs Vital Signs Date Time Temp Pulse Resp B/P Pulse Ox O2 Delivery O2 Flow Rate FiO2 06/18/16 10:55 97.8 86 23 125/77 95 Room Air 97.8 Lab Values Laboratory Tests Test 06/18/16 12:15 White Blood Count 10.3x10^3/uL (4.0-11.0) Red Blood Count 4.16x10^6/uL (4.30-5.70) L Hemoglobin 13.2g/dL (13.0-17.5) Hematocrit 40.0% (39.0-53.0) Mean Corpuscular Volume 96fL (79-100) Mean Corpuscular Hemoglobin 32pg (25-35) Mean Corpuscular Hemoglobin Concent 33g/dL (31-37) Red Cell Distribution Width 13.1% (11.5-14.5) Platelet Count 286x10^3/uL (140-400) Neutrophils (%) (Auto) 83% (31-73) H Lymphocytes (%) (Auto) 8% (24-48) L Monocytes (%) (Auto) 9% (0-9) Eosinophils (%) (Auto) 1% (0-3) Basophils (%) (Auto) 0% (0-3) Neutrophils # (Auto) 8.5x10^3uL (1.8-7.7) H Lymphocytes # (Auto) 0.8x10^3/uL (1.0-4.8) L Monocytes # (Auto) 0.9x10^3/uL (0.0-1.1) Eosinophils # (Auto) 0.1x10^3/uL (0.0-0.7) Basophils # (Auto) 0.0x10^3/uL (0.0-0.2) Prothrombin Time 13.6SEC (11.7-14.0) Prothrombin Time INR 1.1 (0.8-1.1) PTT 29SEC (24-38) Sodium Level 145mmol/L (136-145) Potassium Level 3.9mmol/L (3.5-5.1) Chloride Level 109mmol/L (98-107) H Carbon Dioxide Level 24mmol/L (21-32) Anion Gap 12 (6-14) Blood Urea Nitrogen 20mg/dL (8-26) Creatinine 1.0mg/dL (0.7-1.3) Estimated GFR (Cockcroft-Gault) 74.1 BUN/Creatinine Ratio 20 (6-20) Glucose Level 108mg/dL (70-99) H Calcium Level 8.6mg/dL (8.5-10.1) Magnesium Level 1.8mg/dL (1.8-2.4) Total Bilirubin 0.5mg/dL (0.2-1.0) Aspartate Amino Transferase (AST) 25U/L (15-37) Alanine Aminotransferase (ALT) 39U/L (16-63) Alkaline Phosphatase 96U/L (46-116) Total Protein 6.6g/dL (6.4-8.2) Albumin 2.5g/dL (3.4-5.0) L Albumin/Globulin Ratio 0.6 (1.0-1.7) L Laboratory Tests 06/18/16 12:15 Laboratory Tests 06/18/16 12:15 EKG EKG Not performed Radiology/Procedures Radiology/Procedures Not performed [] Course & Med Decision Making Course & Med Decision Making Pertinent Labs and Imaging studies reviewed. (See chart for details) Patient continued to have copious amounts of liquid stool in the emergency department. The patient will be started on empiric treatment for C. difficile due to risk of exposure during recent hospitalization. Patient started on oral Flagyl. The patient is currently unable to care for himself in his current state and will require admission for further treatment. I spoke with Dr. Prince who accepted care patient in hospital. Dragon Disclaimer Dragon Disclaimer This electronic medical record was generated, in whole or in part, using a voice recognition dictation system. Departure Departure Impression: Primary Impression: Failure to thrive Additional Impressions: Diarrhea Nausea and vomiting Severe protein-calorie malnutrition Disposition: ADMITTED INPATIENT Admitting Physician: Lidia Prince Condition: STABLE Referrals: FEROZ ESPOSITO MD (PCP) Problem Qualifiers Primary Impression: Failure to thrive Failure to thrive age range: in adult Qualified Code: R62.7 - Adult failure to thrive Additional Impressions: Diarrhea Diarrhea type: presumed infectious Qualified Code: A09 - Infectious gastroenteritis and colitis, unspecified Nausea and vomiting Vomiting type: unspecified Vomiting Intractability: non-intractable Qualified Code: R11.2 - Nausea with vomiting, unspecified RICARDA HALL MD Jun 18, 2016 11:42
[2016-06-18] MEDS ORDERED: ONDANSETRON PF 4 MG/2 ML VIAL. IV ONE (12:15)
[2016-06-18] MEDS ORDERED: IV NORMAL SALINE 1000ML BAG 1,000 ML IV SCH (12:15)
[2016-06-18] MEDS ORDERED: IV NORMAL SALINE 500ML BAG 500 ML IV ONE (12:15)
[2016-06-18] MEDS ORDERED: FAMOTIDINE 20 MG/2 ML VIAL IVP ONE (12:15)
[2016-06-18 12:38] LABS: BASO % 0 % (0-3); EOS % 1 % (0-3); HEMOGLOBIN 13.2 g/dL (13.0-17.5); LYMPH # 0.8 x10^3/uL (1.0-4.8); LYMPH % 8 % (24-48); MEAN CORPUSCULAR HEMOGLOBIN 32 pg (25-35); MEAN CORPUSCULAR HGB CONC 33 g/dL (31-37); MEAN CORPUSCULAR VOLUME 96 fL (79-100); MONO % 9 % (0-9); NEUT % 83 % (31-73); PLATELET COUNT 286 x10^3/uL (140-400); RED BLOOD COUNT 4.16 x10^6/uL (4.30-5.70); RED CELL DISTRIBUTION WIDTH 13.1 % (11.5-14.5); WHITE BLOOD COUNT 10.3 x10^3/uL (4.0-11.0)
[2016-06-18 12:45] LABS: CALCIUM 8.6 mg/dL (8.5-10.1); GFR 74.1; POTASSIUM 3.9 mmol/L (3.5-5.1)
[2016-06-18 12:50] LABS: ALBUMIN 2.5 g/dL (3.4-5.0); ALBUMIN/GLOBULIN RATIO 0.6 (1.0-1.7); INR 1.1 (0.8-1.1); MAGNESIUM 1.8 mg/dL (1.8-2.4); PROTHROMBIN TIME PATIENT 13.6 SEC (11.7-14.0); TOTAL BILIRUBIN 0.5 mg/dL (0.2-1.0); TOTAL PROTEIN 6.6 g/dL (6.4-8.2)
[2016-06-18] MEDS ORDERED: ONDANSETRON PF 4 MG/2 ML VIAL. IV PRN (13:45)
[2016-06-18] MEDS ORDERED: ACETAMINOPHEN 325 MG TABLET. PO PRN (13:45)
[2016-06-18] MEDS ORDERED: FENTANYL PF 100 MCG/2 ML VIAL. IV PRN (13:45)
[2016-06-18] MEDS: IV NORMAL SALINE 1000ML BAG 1,000 ML IV SCH (14:00)
[2016-06-18] MEDS: METRONIDAZOLE 500 MG TABLET. PO SCH ×2 (14:47→21:38)
--- NOTE | 2016-06-18 15:49 | ACF ---
Admission Forms Criteria GASTROENTEROLOGY GRG Clinical Indications for Admission to Inpatient Care (Place 'X' for any and all applicable criteria): Hospital admission is needed for appropriate care of the patient because of ANY ONE of the following: [ ]I. Hemoperitoneum(7) [ ]II. Ascites requiring acute treatment indicated by ANY ONE of the following( 8)(9): [ ]a) Hemodynamic instability remaining after emergency or observation level care (as appropriate) [ ]b) Peritoneal signs present (eg, abdominal rigidity, rebound tenderness, absent bowel sounds) [ ]c) Tachypnea, Hypoxemia, or other respiratory symptoms remain after emergency or observation level care (as appropriate) [ ]d) Suspected infected ascites as indicated by ANY ONE of the following: [ ]i) Temperature greater than 100 degrees F (37.8 degrees C) [ ]ii) Abdominal pain or tenderness not relieved by paracentesis [ ]iii) Systemic signs of infection (eg, elevated WBC count, fever) [ ]iv) Ascitic fluid analysis consistent with infection ( eg, elevated WBC count): [ ]v) Vital sign abnormality [ ]III. Suspected acute intra-abdominal process indicated by ANY ONE of the following(1)(2)(3)(4)(5): [ ]a) Hemodynamic instability [ ]b) Peritoneal signs present (eg, abdominal rigidity, rebound tenderness, absent bowel sounds) [ ]c) Bowel obstruction suspected (eg, severe vomiting, abdominal distension) [ ]d) Suspected mesenteric ischemia or ischemic colitis(6) [ ]e) Other signs or symptoms of acute abdominal disease (eg, severe pain, free air): [ ]IV. Severe liver disease indicated by ANY ONE of the following(8)(9)(10)(11)( 12)(13)(14): [ ]a) Acute hepatitis (eg, transaminase level greater than 1000 IU/L) [ ]b) Acute elevation of prothrombin time to more than 50% above normal or INR greater than 1.5 [ ]c) Bilirubin greater than 20 mg/dL (342 micromoles/L) (15) [ ]d) New-onset or worsening hepatic encephalopathy [ ]e) Acute liver necrosis [ ]f) Vomiting or dehydration that is severe of persistent [ ]g) Hemodynamic instability due to liver disease [ ]h) Acute renal failure [ ]i) Hepatic abscess [ ]j) Dehydration that is severe or persistent [ ]k) Hepatic hydrothorax(21) [ ]l) Other indications of severe liver disease (eg, persistent fever , ingestion of hepatotoxin) [X]V. Severe diarrhea indicated by ANY ONE of the following(17)(18)(19)(20)(21)( 22)(23): [ ]a) High fever or other high-risk infection situation [ ]b) Intractable bloody diarrhea (eg, more than 6 bloody stools per day) [X]c) Suspected Clostridium difficile-associated diarrhea(24) [ ]d) Change in mental status that persists after emergency or observation level care (as appropriate) [ ]e) Severe dehydration (eg, greater than 9% loss of body weight in children) [ ]f) Inability to maintain hydration [ ]g) Peritoneal signs present (eg, abdominal rigidity, rebound tenderness, absent bowel sounds) [ ]h) Abdominal ischemia suspected(6) [ ]i) Hemodynamic instability that persists after emergency or observation level care (as appropriate) [ ]j) Severe electrolyte abnormalities requiring inpatient care [ ]k) Acute renal failure [ ]. Suspected toxic megacolon(5)(6) [ ]VII.Severe dysphagia indicated by ANY ONE of the following(25)(26): [ ]a) Suspected esophageal perforation or fistula(27) [ ]b) Suspected cause that requires inpatient care (eg, caustic ingestion, severe esophagitis) (28) [ ]c) Severe dehydration (eg, greater than 9% loss of body weight in children) [ ]d) Inability to manage secretions or maintain hydration [ ]e) Hemodynamic instability that persists after emergency or observation level care (as appropriate) [ ]f) Severe electrolyte abnormalities requiring inpatient care [ ]g) Acute renal failure [ ]VIII.Vomiting and ANY ONE of the following (29)(30)(31)(32): [ ]a) High fever or other high-risk infection situation [ ]b) Change in mental status that persists after emergency or observation level care (as appropriate) [ ]c) Severe dehydration (e.g., greater than 9% loss of body weight in children) [ ]d) Peritoneal signs present (e.g., abdominal rigidity, rebound tenderness, absent bowel sounds) [ ]e) Hemodynamic instability that persists after emergency or observation level care (as appropriate) [ ]f) Severe electrolyte abnormalities requiring inpatient care [ ]g) Acute renal failure [ ]h) Bowel obstruction suspected (e.g., severe vomiting, abdominal distension) [ ]i) Vomiting that is severe or persistent after medical treatment [ ]IX. Significant dehydration indicated by ANY ONE of the following(23)(24)(25) [ ]a) Clinical findings of severe dehydration indicated by ANY ONE of the following: [ ]i) Acute loss of weight from baseline (5% of body weight in adults, 9% in pediatric patients) [ ]ii) Hemodynamic instability [ ]iii) Acute renal failure [ ]iv) Serum sodium greater than 150 mEq/L (mmol/L) [ ]b) Dehydration that is persistent indicated by ALL of the following: [ ]i) Oral rehydration therapy not tolerated or insufficient to adequately correct dehydration [ ]ii) Appropriate intravenous treatment (eg, fluids) does not readily correct dehydration hours of (ie, after 12 to 24 of treatment) [ ]X. Gastroparesis and ANY ONE of the following(37)(38)(39): [ ]a) Dehydration that is severe or persistent [ ]b) Severe electrolyte abnormalities requiring inpatient care [ ]c) Acute renal failure [ ]d) Vomiting that is severe or persistent [ ]XI. Complications of transplanted liver indicated by ANY ONE of the following (40)(41): [ ]a) Acute graft rejection requiring inpatient management (eg, intravenous immunosuppression)(42) [ ]b) Failure of transplanted liver as indicated by ANY ONE of the following: [ ]i) Acute hepatitis (eg, transaminase level greater than 1000 International Units per liter (IU/L)) [ ]ii) Acute elevation of prothrombin time to more than 50% above baseline or INR greater than 1.5 [ ]iii) Bilirubin greater than 20 mg/dL (342 micromoles/L) [ ]iv) New-onset or worsening hepatic encephalopathy [ ]v) Acute elevation of serum ammonia level (eg, greater than 210 mcg/dL (150 micromoles/L)) [ ]vi) Acute liver necrosis [ ]c) Infection requiring inpatient management (eg, Hemodynamic instability, need for intravenous antimicrobial treatment)(43)(44)(45)(46)(47)(48)(49)(50) [ ]d) Other complication of transplanted liver (eg, thrombosis, autoimmune hepatitis, variceal bleeding) requiring inpatient management(51)(52) [ ]XII Complications of transplanted pancreas indicated by ANY ONE of the following(53): [ ]a) Acute graft rejection requiring inpatient management (eg, intravenous immunosuppression)(42)(54) [ ]b) Failure of transplanted pancreas as indicated by ANY ONE of the following: [ ]i) Serum amylase greater than 3 times the upper limit of normal or baseline [ ]ii) Serum lipase greater than 3 times the upper limit of normal or baseline [ ]iii) Imaging findings consistent with pancreatic inflammation or necrosis [ ]c) Infection requiring inpatient management (eg, Hemodynamic instability, need for intravenous antimicrobial treatment)(43)(44)(45)(46)(47)(48)(49)(50) [ ]d) Other complication of transplanted liver (eg, thrombosis, autoimmune hepatitis, variceal bleeding) requiring inpatient management(51)(52) [ ]X. Gastroenterology condition and ALL of the following: [ ]a) Symptom or finding for which emergency and observation care have failed or are not considered appropriate (Also use General Criteria: Observation Care as appropriate) [ ]b) Presence of ANY ONE of the following: [ ]i) A General Admission Criteria [ ]ii) A Pediatric General Admission Criteria. The original [facility] [employer] content created by [facility] [employer] has been revised. The portions of the content which have been revised are identified through the use of italic text or in bold,and [facility] has neither reviewed nor approved the modified material. All other unmodified content is copyright [facility]. Please see references footnoted in the original [facility] edition 2016 Admission Criteria Met?: Yes SHAHBAZ BROWNE Jun 18, 2016 15:49
[2016-06-18 16:00] VITALS: BP 113/65
[2016-06-18 18:04] LABS: BILIRUBIN,URINE SMALL (NEG); GLUCOSE,URINE NEGATIVE (NEG); NITRITE,URINE NEGATIVE (NEG); PH,URINE 5.5; PROTEIN,URINE NEGATIVE (NEG-TRACE); UROBILINOGEN,URINE 0.2 mg/dL (0.2 mg/dL)
[2016-06-18 18:12] LABS: BACTERIA,URINE FEW /HPF (0-FEW); RBC,URINE 0 /HPF (0-2); SQUAMOUS EPITHELIAL CELL,UR FEW /LPF
[2016-06-18 19:00] VITALS: BP 97/58
[2016-06-18 23:00] VITALS: BP 110/57
[2016-06-19] VITALS (7 sets, daily range): BP systolic 107–152; BP diastolic 42–76
[2016-06-19] MEDS: IV NORMAL SALINE 1000ML BAG 1,000 ML IV SCH ×2 (00:04→17:12)
[2016-06-19] MEDS: METRONIDAZOLE 500 MG TABLET. PO SCH ×3 (05:49→20:05)
[2016-06-19 05:56] LABS: BASO % 0 % (0-3); EOS % 3 % (0-3); HEMATOCRIT 33.5 % (39.0-53.0); HEMOGLOBIN 11.1 g/dL (13.0-17.5); LYMPH # 1.2 x10^3/uL (1.0-4.8); LYMPH % 16 % (24-48); MEAN CORPUSCULAR HEMOGLOBIN 32 pg (25-35); MEAN CORPUSCULAR HGB CONC 33 g/dL (31-37); MEAN CORPUSCULAR VOLUME 96 fL (79-100); MONO % 10 % (0-9); NEUT % 71 % (31-73); PLATELET COUNT 235 x10^3/uL (140-400); RED BLOOD COUNT 3.48 x10^6/uL (4.30-5.70); RED CELL DISTRIBUTION WIDTH 12.9 % (11.5-14.5); WHITE BLOOD COUNT 7.3 x10^3/uL (4.0-11.0)
[2016-06-19 06:18] LABS: CALCIUM 8.1 mg/dL (8.5-10.1); CREATININE 0.8 mg/dL (0.7-1.3); GFR 95.8; POTASSIUM 3.3 mmol/L (3.5-5.1)
[2016-06-19] MEDS ORDERED: DEXTROSE 50% 25 GM / 50ML DISP.SYRIN. IV ONE (12:30)
[2016-06-19] MEDS ORDERED: POTASSIUM CHLORIDE 20 MEQ TABLET.ER. PO ONE (13:45)
--- NOTE | 2016-06-19 13:53 | PDOC ---
Provider Note Provider Note Pt seen.H&P dictated. #[id number] JIMMY ROBERTSON MD Jun 19, 2016 13:53
[2016-06-19] MEDS ORDERED: DEXTROSE 50% 25 GM / 50ML DISP.SYRIN. IV PRN (17:00)
[2016-06-19] MEDS: CLOPIDOGREL BISULFATE 75 MG TABLET PO SCH (17:12)
[2016-06-19] MEDS: PANTOPRAZOLE 40 MG TABLET. PO SCH (17:12)
[2016-06-19] MEDS: PREDNISONE 5 MG TABLET PO SCH (17:12)
[2016-06-19] MEDS: ENOXAPARIN 40 MG/0.4 ML DISP.SYRIN. SQ SCH (17:14)
[2016-06-19] MEDS: AMIODARONE HCL 200 MG TABLET PO SCH (17:15)
[2016-06-19] MEDS: CARVEDILOL 3.125 MG TABLET PO SCH (17:15)
[2016-06-19] MEDS: POTASSIUM CHLORIDE 20 MEQ TABLET.ER. PO SCH (20:05)
[2016-06-19] MEDS: ATORVASTATIN CALCIUM 40 MG TABLET. PO SCH (20:08)
[2016-06-19] MEDS: HYDROXYCHLOROQUINE 200 MG TABLET PO SCH (20:08)
--- NOTE | 2016-06-19 23:03 | HP ---
ADMIT DATE: 06/18/2016 PATIENT LOCATION: [facility] REASON FOR ADMISSION TO THE HOSPITAL: Diarrhea, severe weakness and hypokalemia. HISTORY OF PRESENT ILLNESS: The patient is a 71-year-old male, a patient of Dr. Feroz Blackman. In fact, he was discharged on Monday from the hospital and he was having a lot of diarrhea, he went to assisted living facility and then he was having a lot of diarrhea, at least 4-5, watery. He was weak and came back to the hospital. His potassium was low. He was dehydrated given IV fluids. Stool for C. diff was pending. Started on Flagyl. PAST MEDICAL HISTORY: As mentioned, the patient was recently discharged from the hospital 1 day prior to this admission and he has a history of coronary artery disease, congestive heart failure, 35% ejection fraction, hypertension, history of [place], hyperlipidemia, diverticulosis, GERD, history of pneumonia, anemia, osteoarthritis, rheumatoid arthritis, septic necrosis of the hip, chronic renal insufficiency, UTIs, diabetes, hypothyroidism. PAST SURGICAL HISTORY: He had AICD pacemaker, which was removed because of infection, CABG, cataract surgery, tonsillectomy, had [id number] amputation, left leg. FAMILY HISTORY: Cancer in the parent and sister, diabetes in the father. SOCIAL HISTORY: Lives alone, now in assisted facility. No history of alcohol or drug abuse. Remote history of tobacco. REVIEW OF SYSTEMS: Complains of diarrhea, no vomiting, no fever, just weak. Rest of the 14 systems was reviewed. In fact, he was in the hospital, was just discharged 1 day prior to this admission. ALLERGIES: None. MEDICATIONS AT HOME: The patient is on MiraLax, senna, amiodarone 200 mg daily, atorvastatin 40 mg daily, Coreg 3.125 twice a day, Plavix 75 mg daily, hydrocodone q.6 hours, hydroxychloroquine 200 mg twice a day, levothyroxine 88 mcg daily, Protonix 40 mg daily, potassium 40 mEq twice a day, prednisone 5 mg daily. PHYSICAL EXAMINATION: GENERAL: The patient is sitting in chair, a lot of loose stools yesterday, today is much better. VITAL SIGNS: Temperature 98, pulse 86, respirations 18, blood pressure 110/57, 100% on room air. HEENT: Head is atraumatic. Pupils equal. Oral cavity: No congestion. NECK: Supple. Thyroid not enlarged. JVD not elevated. CHEST: Symmetrical. HEART: Scar of heart surgery. He also had a pacemaker removal, left-sided chest. Cardiovascular: S1, S2. LUNGS: Clear. ABDOMEN: Soft, bowel sounds present, no mass palpable. EXTERNAL GENITALIA: No Méndez. RECTAL: Deferred. EXTREMITIES: Left jjkvi-alk-pyuu amputation, has prosthesis. Right leg, 1-2+ edema and did not examine the foot at this point and says he has 2 wounds on the foot. LABORATORY DATA: White count is 10, hemoglobin 13, platelets 286. Electrolytes show sodium 145, potassium 3.9, chloride 109, bicarb 24, BUN 20, creatinine 1.0, glucose 108. LFTs were normal. Potassium went down to 3.3. INR 1.1. Urine negative for nitrites and leukocytes. FINAL IMPRESSION: 1. Weakness secondary to diarrhea. 2. Acute diarrhea, possibility of Clostridium difficile. 3. Hypokalemia. 4. Coronary artery disease, history of heart surgery. 5. Congestive heart failure, chronic systolic. 6. Diabetes. 7. Hypertension. 8. Hyperlipidemia. 9. Peripheral vascular disease, had left memkp-hfu-jvxh amputation, he has foot ulcers. PLAN: At this time, admit to the hospital, hydrate with IV fluids, replace potassium, stool for C. diff, start on Flagyl and see how the patient's condition improves, start on clear liquid diet and advance as tolerated. Old off on miralax and senna. JIMMY ROBERTSON MD DR: CHUN/sky JOB#: [id number] / [id number] FEROZ Stroud MD
[2016-06-20] MEDS: METRONIDAZOLE 500 MG TABLET. PO SCH ×3 (05:48→21:29)
[2016-06-20 06:02] LABS: CALCIUM 7.9 mg/dL (8.5-10.1); CREATININE 0.7 mg/dL (0.7-1.3); GFR 111.8; POTASSIUM 3.4 mmol/L (3.5-5.1)
[2016-06-20] MEDS: LEVOTHYROXINE 88 MCG TABLET PO SCH (06:03)
[2016-06-20 07:00] VITALS: BP 124/60
[2016-06-20] MEDS: POTASSIUM CHLORIDE 20 MEQ TABLET.ER. PO SCH ×2 (08:07→16:59)
[2016-06-20] MEDS: PREDNISONE 5 MG TABLET PO SCH (08:08)
[2016-06-20] MEDS: CLOPIDOGREL BISULFATE 75 MG TABLET PO SCH (08:08)
[2016-06-20] MEDS: AMIODARONE HCL 200 MG TABLET PO SCH (08:08)
[2016-06-20] MEDS: HYDROXYCHLOROQUINE 200 MG TABLET PO SCH ×2 (08:08→21:29)
[2016-06-20] MEDS: PANTOPRAZOLE 40 MG TABLET. PO SCH (08:08)
[2016-06-20] MEDS: CARVEDILOL 3.125 MG TABLET PO SCH ×2 (08:08→16:59)
[2016-06-20] MEDS: HYDROCODONE/APAP 7.5/325MG TABLET. PO PRN ×2 (08:09→23:10)
--- NOTE | 2016-06-20 09:02 | PDOC ---
EDHERNANDEZ [employer] ADMINISTRATOR 06/20/16 0902: IM PROGRESS NOTES- Subjective Subjective diarrhea more manageable Objective Objective alert, weak Vitals Vital Signs Date Time Temp Pulse Resp B/P Pulse Ox O2 Delivery O2 Flow Rate FiO2 06/20/16 08:09 Room Air 06/20/16 08:08 74 124/60 06/20/16 07:00 97.7 20 94 97.7 06/19/16 11:00 2.0 Input & Output Intake and Output 06/20/16 07:00 Intake Total 1660 ml Output Total 3000 ml Balance -1340 ml Intake Oral 1660 ml Output Urine Total 1000 ml Stool Total 2000 ml # Voids 2 # Bowel Movements 1 Physical Exam Physical Exam General appearance - alert, chronically ill appearing, and in no distress Mental Status - alert, oriented to person, place, and time, affect appropriate to mood Head - normal Chest - clear to auscultation, no wheezes, rales or rhonchi, symmetric air entry Heart - S1 and S2 normal Abdomen - soft, nontender, nondistended, BS + Neurological - no acute focal neurological deficits Musculoskeletal - R hip Extremities - no pedal edema, wound vac R hip, dressing R heel Skin - warm and dry Labs Laboratory Tests Test 06/18/16 12:15 06/18/16 14:25 06/18/16 17:45 06/18/16 17:48 White Blood Count 10.3x10^3/uL (4.0-11.0) Red Blood Count 4.16x10^6/uL (4.30-5.70) Hemoglobin 13.2g/dL (13.0-17.5) Hematocrit 40.0% (39.0-53.0) Mean Corpuscular Volume 96fL (79-100) Mean Corpuscular Hemoglobin 32pg (25-35) Mean Corpuscular Hemoglobin Concent 33g/dL (31-37) Red Cell Distribution Width 13.1% (11.5-14.5) Platelet Count 286x10^3/uL (140-400) Neutrophils (%) (Auto) 83% (31-73) Lymphocytes (%) (Auto) 8% (24-48) Monocytes (%) (Auto) 9% (0-9) Eosinophils (%) (Auto) 1% (0-3) Basophils (%) (Auto) 0% (0-3) Neutrophils # (Auto) 8.5x10^3uL (1.8-7.7) Lymphocytes # (Auto) 0.8x10^3/uL (1.0-4.8) Monocytes # (Auto) 0.9x10^3/uL (0.0-1.1) Eosinophils # (Auto) 0.1x10^3/uL (0.0-0.7) Basophils # (Auto) 0.0x10^3/uL (0.0-0.2) Prothrombin Time 13.6SEC (11.7-14.0) Prothromb Time International Ratio 1.1 (0.8-1.1) Activated Partial Thromboplast Time 29SEC (24-38) Sodium Level 145mmol/L (136-145) Potassium Level 3.9mmol/L (3.5-5.1) Chloride Level 109mmol/L (98-107) Carbon Dioxide Level 24mmol/L (21-32) Anion Gap 12 (6-14) Blood Urea Nitrogen 20mg/dL (8-26) Creatinine 1.0mg/dL (0.7-1.3) Estimated GFR (Cockcroft-Gault) 74.1 BUN/Creatinine Ratio 20 (6-20) Glucose Level 108mg/dL (70-99) Calcium Level 8.6mg/dL (8.5-10.1) Magnesium Level 1.8mg/dL (1.8-2.4) Total Bilirubin 0.5mg/dL (0.2-1.0) Aspartate Amino Transf (AST/SGOT) 25U/L (15-37) Alanine Aminotransferase (ALT/SGPT) 39U/L (16-63) Alkaline Phosphatase 96U/L (46-116) Total Protein 6.6g/dL (6.4-8.2) Albumin 2.5g/dL (3.4-5.0) Albumin/Globulin Ratio 0.6 (1.0-1.7) Clostridium difficile Toxin (PCR) Negative (Negative) Urine Collection Type Unknown Urine Color Yellow Urine Clarity Clear Urine pH 5.5 Urine Specific Urich 1.020 Urine Protein Negativemg/dL (NEG-TRACE) Urine Glucose (UA) Negativemg/dL (NEG) Urine Ketones (Stick) 15mg/dL (NEG) Urine Blood Negative (NEG) Urine Nitrite Negative (NEG) Urine Bilirubin Small (NEG) Urine Urobilinogen Dipstick 0.2mg/dL (0.2 mg/dL) Urine Leukocyte Esterase Trace (NEG) Urine RBC 0/HPF (0-2) Urine WBC 1-4/HPF (0-4) Urine Squamous Epithelial Cells Few/LPF Urine Bacteria Few/HPF (0-FEW) Urine Hyaline Casts Occasional/HPF Urine Mucus Marked/LPF Nasal Screen MRSA (PCR) Positive (Negative) Test 06/19/16 05:30 06/19/16 08:31 06/19/16 11:40 06/19/16 12:24 White Blood Count 7.3x10^3/uL (4.0-11.0) Red Blood Count 3.48x10^6/uL (4.30-5.70) Hemoglobin 11.1g/dL (13.0-17.5) Hematocrit 33.5% (39.0-53.0) Mean Corpuscular Volume 96fL (79-100) Mean Corpuscular Hemoglobin 32pg (25-35) Mean Corpuscular Hemoglobin Concent 33g/dL (31-37) Red Cell Distribution Width 12.9% (11.5-14.5) Platelet Count 235x10^3/uL (140-400) Neutrophils (%) (Auto) 71% (31-73) Lymphocytes (%) (Auto) 16% (24-48) Monocytes (%) (Auto) 10% (0-9) Eosinophils (%) (Auto) 3% (0-3) Basophils (%) (Auto) 0% (0-3) Neutrophils # (Auto) 5.2x10^3uL (1.8-7.7) Lymphocytes # (Auto) 1.2x10^3/uL (1.0-4.8) Monocytes # (Auto) 0.7x10^3/uL (0.0-1.1) Eosinophils # (Auto) 0.2x10^3/uL (0.0-0.7) Basophils # (Auto) 0.0x10^3/uL (0.0-0.2) Sodium Level 146mmol/L (136-145) Potassium Level 3.3mmol/L (3.5-5.1) Chloride Level 110mmol/L (98-107) Carbon Dioxide Level 23mmol/L (21-32) Anion Gap 13 (6-14) Blood Urea Nitrogen 14mg/dL (8-26) Creatinine 0.8mg/dL (0.7-1.3) Estimated GFR (Cockcroft-Gault) 95.8 Glucose Level 70mg/dL (70-99) Calcium Level 8.1mg/dL (8.5-10.1) Glucose (Fingerstick) 63mg/dL (70-99) 61mg/dL (70-99) 68mg/dL (70-99) Test 06/19/16 13:44 06/19/16 16:46 06/19/16 21:21 06/20/16 05:10 Glucose (Fingerstick) 115mg/dL (70-99) 67mg/dL (70-99) 78mg/dL (70-99) Sodium Level 149mmol/L (136-145) Potassium Level 3.4mmol/L (3.5-5.1) Chloride Level 115mmol/L (98-107) Carbon Dioxide Level 21mmol/L (21-32) Anion Gap 13 (6-14) Blood Urea Nitrogen 6mg/dL (8-26) Creatinine 0.7mg/dL (0.7-1.3) Estimated GFR (Cockcroft-Gault) 111.8 Glucose Level 86mg/dL (70-99) Calcium Level 7.9mg/dL (8.5-10.1) Laboratory Tests Test 06/19/16 11:40 06/19/16 12:24 06/19/16 13:44 06/19/16 16:46 Glucose (Fingerstick) 61mg/dL (70-99) 68mg/dL (70-99) 115mg/dL (70-99) 67mg/dL (70-99) Test 06/19/16 21:21 06/20/16 05:10 Glucose (Fingerstick) 78mg/dL (70-99) Sodium Level 149mmol/L (136-145) Potassium Level 3.4mmol/L (3.5-5.1) Chloride Level 115mmol/L (98-107) Carbon Dioxide Level 21mmol/L (21-32) Anion Gap 13 (6-14) Blood Urea Nitrogen 6mg/dL (8-26) Creatinine 0.7mg/dL (0.7-1.3) Estimated GFR (Cockcroft-Gault) 111.8 Glucose Level 86mg/dL (70-99) Calcium Level 7.9mg/dL (8.5-10.1) Meds Current Medications Acetaminophen/ Hydrocodone Bitart (Lortab 7.5/325) 1 tab PRN Q4HRS PRN PO PAIN Last administered on 06/20/16 08:09; Start 06/19/16 at 13:45 Amiodarone HCl (Cordarone) 200 mg DAILY PO Last administered on 06/20/16 08:08 ; Start 06/19/16 at 14:00 Atorvastatin Calcium (Lipitor) 40 mg HS PO Last administered on 06/19/16 20:08 ; Start 06/19/16 at 21:00 Carvedilol (Coreg) 3.125 mg BIDWMEALS PO Last administered on 06/20/16 08:08; Start 06/19/16 at 17:00 Clopidogrel Bisulfate (Plavix) 75 mg DAILY PO Last administered on 06/20/16 08 :08; Start 06/19/16 at 14:00 Dextrose 12.5 gm PRN Q15MIN PRN IV SEE COMMENTS; Start 06/19/16 at 17:00 Dextrose 25 gm STK-MED ONCE IV Last administered on 06/19/16 12:40; Start at 12:30; Stop 06/19/16 at 12:31; Status DC Enoxaparin Sodium (Lovenox 40mg Syringe) 40 mg Q24H SQ Last administered on 17:14; Start 06/19/16 at 14:00 Hydroxychloroquine Sulfate (Plaquenil) 200 mg BID PO Last administered on 08:08; Start 06/19/16 at 21:00 Levothyroxine Sodium (Synthroid) 88 mcg DAILY07 PO Last administered on 06:03; Start 06/20/16 at 07:00 Pantoprazole Sodium (Protonix) 40 mg DAILYAC PO Last administered on 06/20/16 08:08; Start 06/19/16 at 16:30 Potassium Chloride (Klor-Con) 40 meq 1X ONCE PO Last administered on 17:13; Start 06/19/16 at 13:45; Stop 06/19/16 at 13:46; Status DC Potassium Chloride (Klor-Con) 40 meq BIDWMEALS PO Last administered on 08:07; Start 06/19/16 at 17:00 Prednisone (Prednisone) 5 mg DAILY PO Last administered on 06/20/16 08:08; Start 06/19/16 at 14:00 Assessment Assessment 1.acute diarrhea with severe weakness 2. R hip wound with wound vac POA 3. R hip pain chronic 4. CHF EF 35-40% per ECHO stable at admission, not acute 5. DM II with neuropathy insulin controlled, 6. hyperlipidemia 7. anemia chronic B12 deficiency 8. CAD with h/o [place], CABG x4 9. Rheumatoid arthritis 10. 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 diverticulosis 12. severe depression single episode mildly active 13 CKD II 14. severe weakness and debility 15. severe PCL malnutrition with trace ketonuria 16. seborrheic dermatitis 17. OA R hip severe 18. 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 Polyarthralgia. 20. Primary polyarticular osteoarthritis. 21 DMARD monitoring. 22. Chronic nonsteroidal antiinflammatory drug use. 23. R hip decubitus ulcer stage III s/p debridement 04/14/16 PLAN: diarrhea stool work up pending C diff negative Immodium prn after stool studies obtained currently Flagyl 500 IV q8h wound R hip/R foot continue wound vac R hip wound care R heel wound care consult ordered severe PCL malnutrition supplement CKD II Admit Na 145 06/20 149 K 3.9 3.4 BUN 20 6 Cr 1.0 0.7 replace K with 20 meq today IVF stopped DM II FSBS/ssi BS 67-115 severe weakness and debility PT OT DVT/GI prophylaxis lovenox PPI For further plan of care, please see the orders. Plan Plan For more details regarding further plans, please refer to the orders. FEROZ ESPOSITO MD 06/20/16 1012: IM PROGRESS NOTES- Assessment Assessment The patient was seen and examined by me. Chart reviewed and plan of care formulated. Discussed with, reviewed and agree with TERRAZZO LAYER's notes, plan of care and orders with modifications as necessary. For more details regarding further plans, please refer to the orders. HERNANDEZ WARD APRN Jun 20, 2016 09:02 FEROZ ESPOSITO MD Jun 20, 2016 10:12
[2016-06-20 10:57] VITALS: BP 123/57
[2016-06-20] MEDS: POTASSIUM CHLORIDE 40 MEQ in IV DEXTROSE 5% 1,000 ML IV SCH (11:18)
[2016-06-20] MEDS: ONDANSETRON PF 4 MG/2 ML VIAL. IV PRN (13:17)
[2016-06-20] MEDS: LOPERAMIDE 2 MG CAPSULE PO PRN ×2 (13:17→21:29)
[2016-06-20] MEDS: ENOXAPARIN 40 MG/0.4 ML DISP.SYRIN. SQ SCH (13:22)
[2016-06-20 15:04] VITALS: BP 130/52
[2016-06-20] MEDS ORDERED: POTASSIUM CHLORIDE 20 MEQ TABLET.ER. PO ONE (16:00)
[2016-06-20 19:00] VITALS: BP 103/49
[2016-06-20] MEDS: ATORVASTATIN CALCIUM 40 MG TABLET. PO SCH (21:29)
[2016-06-20 23:00] VITALS: BP 116/56
[2016-06-21] VITALS (7 sets, daily range): BP systolic 89–123; BP diastolic 37–66
[2016-06-21 05:14] LABS: BASO % 0 % (0-3); EOS % 2 % (0-3); HEMOGLOBIN 11.6 g/dL (13.0-17.5); LYMPH # 1.1 x10^3/uL (1.0-4.8); LYMPH % 14 % (24-48); MEAN CORPUSCULAR HEMOGLOBIN 32 pg (25-35); MEAN CORPUSCULAR HGB CONC 33 g/dL (31-37); MEAN CORPUSCULAR VOLUME 96 fL (79-100); MONO % 9 % (0-9); NEUT % 75 % (31-73); PLATELET COUNT 242 x10^3/uL (140-400); RED BLOOD COUNT 3.66 x10^6/uL (4.30-5.70); RED CELL DISTRIBUTION WIDTH 13.3 % (11.5-14.5); WHITE BLOOD COUNT 7.3 x10^3/uL (4.0-11.0)
[2016-06-21 05:40] LABS: ALBUMIN 2.2 g/dL (3.4-5.0); ALBUMIN/GLOBULIN RATIO 0.7 (1.0-1.7); CALCIUM 8.1 mg/dL (8.5-10.1); CREATININE 0.8 mg/dL (0.7-1.3); GFR 95.8; MAGNESIUM 1.7 mg/dL (1.8-2.4); TOTAL BILIRUBIN 0.3 mg/dL (0.2-1.0); TOTAL PROTEIN 5.5 g/dL (6.4-8.2)
[2016-06-21] MEDS: LEVOTHYROXINE 88 MCG TABLET PO SCH (05:46)
[2016-06-21] MEDS: METRONIDAZOLE 500 MG TABLET. PO SCH ×3 (05:46→22:02)
[2016-06-21] MEDS: POTASSIUM CHLORIDE 40 MEQ in IV DEXTROSE 5% 1,000 ML IV SCH (05:49)
[2016-06-21] MEDS: HYDROCODONE/APAP 7.5/325MG TABLET. PO PRN ×4 (05:50→21:02)
[2016-06-21] MEDS: CARVEDILOL 3.125 MG TABLET PO SCH ×2 (08:42→16:58)
[2016-06-21] MEDS: POTASSIUM CHLORIDE 20 MEQ TABLET.ER. PO SCH ×2 (08:42→16:57)
[2016-06-21] MEDS: LOPERAMIDE 2 MG CAPSULE PO PRN ×2 (08:42→21:01)
[2016-06-21] MEDS: CLOPIDOGREL BISULFATE 75 MG TABLET PO SCH (08:42)
[2016-06-21] MEDS: AMIODARONE HCL 200 MG TABLET PO SCH (08:43)
[2016-06-21] MEDS: HYDROXYCHLOROQUINE 200 MG TABLET PO SCH ×2 (08:43→21:01)
[2016-06-21] MEDS: PANTOPRAZOLE 40 MG TABLET. PO SCH (08:43)
[2016-06-21] MEDS: PREDNISONE 5 MG TABLET PO SCH (08:43)
[2016-06-21] MEDS ORDERED: FENTANYL PF 100 MCG/2 ML VIAL. IV PRN (09:15)
--- NOTE | 2016-06-21 09:16 | PDOC ---
IM PROGRESS NOTES- Subjective Subjective continue with watery stools, increase in frequency Objective Objective alert, weak Vitals Vital Signs Date Time Temp Pulse Resp B/P Pulse Ox O2 Delivery O2 Flow Rate FiO2 06/21/16 08:43 71 112/60 06/21/16 07:00 95.7 20 96 Room Air 95.7 Input & Output Intake and Output 06/21/16 07:00 Intake Total 1440 ml Output Total 2 ml Balance 1438 ml Intake Oral 1440 ml Output Urine Total 2 ml # Voids 1 # Bowel Movements 2 Physical Exam Physical Exam General appearance - alert, chronically ill appearing, and in no distress Mental Status - alert, oriented to person, place, and time, affect appropriate to mood Head - normal Chest - clear to auscultation, no wheezes, rales or rhonchi, symmetric air entry Heart - S1 and S2 normal Abdomen - soft, nontender, nondistended, BS + Neurological - no acute focal neurological deficits Musculoskeletal - R hip Extremities - no pedal edema, wound vac R hip, R heel wound Skin - warm and dry Labs Laboratory Tests Test 06/19/16 11:40 06/19/16 12:24 06/19/16 13:44 06/19/16 16:46 Glucose (Fingerstick) 61mg/dL (70-99) 68mg/dL (70-99) 115mg/dL (70-99) 67mg/dL (70-99) Test 06/19/16 21:21 06/20/16 05:10 06/20/16 07:30 06/20/16 10:44 Glucose (Fingerstick) 78mg/dL (70-99) 74mg/dL (70-99) 75mg/dL (70-99) Sodium Level 149mmol/L (136-145) Potassium Level 3.4mmol/L (3.5-5.1) Chloride Level 115mmol/L (98-107) Carbon Dioxide Level 21mmol/L (21-32) Anion Gap 13 (6-14) Blood Urea Nitrogen 6mg/dL (8-26) Creatinine 0.7mg/dL (0.7-1.3) Estimated GFR (Cockcroft-Gault) 111.8 Glucose Level 86mg/dL (70-99) Calcium Level 7.9mg/dL (8.5-10.1) Test 06/20/16 16:10 06/20/16 20:46 06/21/16 04:30 06/21/16 05:34 Glucose (Fingerstick) 99mg/dL (70-99) 77mg/dL (70-99) 81mg/dL (70-99) White Blood Count 7.3x10^3/uL (4.0-11.0) Red Blood Count 3.66x10^6/uL (4.30-5.70) Hemoglobin 11.6g/dL (13.0-17.5) Hematocrit 35.0% (39.0-53.0) Mean Corpuscular Volume 96fL (79-100) Mean Corpuscular Hemoglobin 32pg (25-35) Mean Corpuscular Hemoglobin Concent 33g/dL (31-37) Red Cell Distribution Width 13.3% (11.5-14.5) Platelet Count 242x10^3/uL (140-400) Neutrophils (%) (Auto) 75% (31-73) Lymphocytes (%) (Auto) 14% (24-48) Monocytes (%) (Auto) 9% (0-9) Eosinophils (%) (Auto) 2% (0-3) Basophils (%) (Auto) 0% (0-3) Neutrophils # (Auto) 5.5x10^3uL (1.8-7.7) Lymphocytes # (Auto) 1.1x10^3/uL (1.0-4.8) Monocytes # (Auto) 0.6x10^3/uL (0.0-1.1) Eosinophils # (Auto) 0.2x10^3/uL (0.0-0.7) Basophils # (Auto) 0.0x10^3/uL (0.0-0.2) Sodium Level 144mmol/L (136-145) Potassium Level 4.0mmol/L (3.5-5.1) Chloride Level 111mmol/L (98-107) Carbon Dioxide Level 23mmol/L (21-32) Anion Gap 10 (6-14) Blood Urea Nitrogen 4mg/dL (8-26) Creatinine 0.8mg/dL (0.7-1.3) Estimated GFR (Cockcroft-Gault) 95.8 BUN/Creatinine Ratio 5 (6-20) Glucose Level 89mg/dL (70-99) Calcium Level 8.1mg/dL (8.5-10.1) Magnesium Level 1.7mg/dL (1.8-2.4) Total Bilirubin 0.3mg/dL (0.2-1.0) Aspartate Amino Transf (AST/SGOT) 24U/L (15-37) Alanine Aminotransferase (ALT/SGPT) 31U/L (16-63) Alkaline Phosphatase 83U/L (46-116) Total Protein 5.5g/dL (6.4-8.2) Albumin 2.2g/dL (3.4-5.0) Albumin/Globulin Ratio 0.7 (1.0-1.7) Laboratory Tests Test 06/20/16 10:44 06/20/16 16:10 06/20/16 20:46 06/21/16 04:30 Glucose (Fingerstick) 75mg/dL (70-99) 99mg/dL (70-99) 77mg/dL (70-99) White Blood Count 7.3x10^3/uL (4.0-11.0) Red Blood Count 3.66x10^6/uL (4.30-5.70) Hemoglobin 11.6g/dL (13.0-17.5) Hematocrit 35.0% (39.0-53.0) Mean Corpuscular Volume 96fL (79-100) Mean Corpuscular Hemoglobin 32pg (25-35) Mean Corpuscular Hemoglobin Concent 33g/dL (31-37) Red Cell Distribution Width 13.3% (11.5-14.5) Platelet Count 242x10^3/uL (140-400) Neutrophils (%) (Auto) 75% (31-73) Lymphocytes (%) (Auto) 14% (24-48) Monocytes (%) (Auto) 9% (0-9) Eosinophils (%) (Auto) 2% (0-3) Basophils (%) (Auto) 0% (0-3) Neutrophils # (Auto) 5.5x10^3uL (1.8-7.7) Lymphocytes # (Auto) 1.1x10^3/uL (1.0-4.8) Monocytes # (Auto) 0.6x10^3/uL (0.0-1.1) Eosinophils # (Auto) 0.2x10^3/uL (0.0-0.7) Basophils # (Auto) 0.0x10^3/uL (0.0-0.2) Sodium Level 144mmol/L (136-145) Potassium Level 4.0mmol/L (3.5-5.1) Chloride Level 111mmol/L (98-107) Carbon Dioxide Level 23mmol/L (21-32) Anion Gap 10 (6-14) Blood Urea Nitrogen 4mg/dL (8-26) Creatinine 0.8mg/dL (0.7-1.3) Estimated GFR (Cockcroft-Gault) 95.8 BUN/Creatinine Ratio 5 (6-20) Glucose Level 89mg/dL (70-99) Calcium Level 8.1mg/dL (8.5-10.1) Magnesium Level 1.7mg/dL (1.8-2.4) Total Bilirubin 0.3mg/dL (0.2-1.0) Aspartate Amino Transf (AST/SGOT) 24U/L (15-37) Alanine Aminotransferase (ALT/SGPT) 31U/L (16-63) Alkaline Phosphatase 83U/L (46-116) Total Protein 5.5g/dL (6.4-8.2) Albumin 2.2g/dL (3.4-5.0) Albumin/Globulin Ratio 0.7 (1.0-1.7) Test 06/21/16 05:34 Glucose (Fingerstick) 81mg/dL (70-99) Meds Current Medications Ondansetron HCl (Zofran) 4 mg PRN Q8HRS PRN IV NAUSEA/VOMITING Last administered on 06/20/16 13:17; Start 06/20/16 at 13:00 Potassium Chloride 20 meq 20 meq 1X ONCE PO Last administered on 06/20/16 16: 58; Start 06/20/16 at 16:00; Stop 06/20/16 at 16:01; Status DC Potassium Chloride/Dextrose 1,020 ml @ 50 mls/hr [id number] IV Last administered on 06/21/16 05:49; Start 06/20/16 at 11:00 Assessment Assessment 1.acute diarrhea with severe weakness 2. R hip wound with wound vac POA 3. R hip pain chronic 4. CHF EF 35-40% per ECHO stable at admission, not acute 5. DM II with neuropathy insulin controlled, 6. hyperlipidemia 7. anemia chronic B12 deficiency 8. CAD with h/o [place], CABG x4 9. Rheumatoid arthritis 10. 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 diverticulosis 12. severe depression single episode mildly active 13 CKD II 14. severe weakness and debility 15. severe PCL malnutrition with trace ketonuria 16. seborrheic dermatitis 17. OA R hip severe 18. 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 Polyarthralgia. 20. Primary polyarticular osteoarthritis. 21 DMARD monitoring. 22. Chronic nonsteroidal antiinflammatory drug use. 23. R hip decubitus ulcer stage III s/p debridement 04/14/16 PLAN: diarrhea stool work up pending C diff negative 06/20 Immodium prn after stool studies obtained stool studies pending currently Flagyl 500 IV [id number], diarrhea worse -GI consult wound R hip/R foot continue wound vac R hip wound care R heel wound care consult ordered wound vac R foot to be placed severe PCL malnutrition supplement CKD II Admit Na 145 06/21 144 K 3.9 4.0 BUN 20 4 Cr 1.0 0.8 Mg 1.7 replace K with 20 meq today IVF with 40 K 50cc/hr 03/20 Mg SO4 2 gm IV today DM II FSBS/ssi BS 75-99 severe weakness and debility PT OT DVT/GI prophylaxis lovenox PPI For more details regarding further plans, please refer to the orders. Plan Plan For more details regarding further plans, please refer to the orders. HERNANDEZ WARD APRN Jun 21, 2016 09:15
[2016-06-21] MEDS: FENTANYL PF 100 MCG/2 ML VIAL. IV PRN ×2 (09:39→14:21)
[2016-06-21] MEDS ORDERED: MAGNESIUM SULFATE 2GM 50 ML IV ONE (10:00)
--- NOTE | 2016-06-21 10:26 | PDOC2 ---
GI CONSULT Reason For Consult: Diarrhea HPI: HPI: 71 y/o male re-admitted 06/18/16 w/ diarrhea and weakness. Diarrhea (watery stools) began about a week ago. Previous to this, no GI issues. He reports 6 stools overnight and 1 stool this morning. He refused breakfast this morning for fear of this causing more diarrhea. Denies pain and bleeding. No GERD. Has had a few episodes of vomiting. Previously on antibiotics for chronic wounds (right foot and hip). Was empirically started on Flagyl. C Diff negative, stool culture pending. Believes last colonoscopy @[facility] in 2013, believes he is due for screening this year. Unsure if h/o polyps, etc. Also recalls previous EGD. PMH: PMH: CAD, [place], CHF, HTN, HLD, diverticulosis, pneumonia, anemia, OA, CKD, UTIs, DM, hypothyroidism, AICD/removal, CABG, cataract surgery, tonsillectomy, left BKA FH: Family History: No pertinent hx (denies GI cancers), Cancer, DM Social History: ALCOHOL: none Drugs: None ROS: GEN: Denies fevers, chills, sweats HEENT: Denies blurred vision, sore throat CV: Denies chest pain RESP: Denies shortness of air, cough GI: Per HPI : Denies hematuria, dysuria ENDO: Denies weight changes NEURO: Denies confusion, dizziness MSK: Denies weakness, joint pain/swelling SKIN: Denies jaundice, pruritus VItals: Vitals: Vital Signs Date Time Temp Pulse Resp B/P Pulse Ox O2 Delivery O2 Flow Rate FiO2 06/21/16 09:39 Room Air 06/21/16 08:43 71 112/60 06/21/16 07:00 95.7 20 96 95.7 Labs: Labs: Laboratory Tests Test 06/20/16 10:44 06/20/16 16:10 06/20/16 20:46 06/21/16 04:30 Glucose (Fingerstick) 75mg/dL (70-99) 99mg/dL (70-99) 77mg/dL (70-99) White Blood Count 7.3x10^3/uL (4.0-11.0) Red Blood Count 3.66x10^6/uL (4.30-5.70) Hemoglobin 11.6g/dL (13.0-17.5) Hematocrit 35.0% (39.0-53.0) Mean Corpuscular Volume 96fL (79-100) Mean Corpuscular Hemoglobin 32pg (25-35) Mean Corpuscular Hemoglobin Concent 33g/dL (31-37) Red Cell Distribution Width 13.3% (11.5-14.5) Platelet Count 242x10^3/uL (140-400) Neutrophils (%) (Auto) 75% (31-73) Lymphocytes (%) (Auto) 14% (24-48) Monocytes (%) (Auto) 9% (0-9) Eosinophils (%) (Auto) 2% (0-3) Basophils (%) (Auto) 0% (0-3) Neutrophils # (Auto) 5.5x10^3uL (1.8-7.7) Lymphocytes # (Auto) 1.1x10^3/uL (1.0-4.8) Monocytes # (Auto) 0.6x10^3/uL (0.0-1.1) Eosinophils # (Auto) 0.2x10^3/uL (0.0-0.7) Basophils # (Auto) 0.0x10^3/uL (0.0-0.2) Sodium Level 144mmol/L (136-145) Potassium Level 4.0mmol/L (3.5-5.1) Chloride Level 111mmol/L (98-107) Carbon Dioxide Level 23mmol/L (21-32) Anion Gap 10 (6-14) Blood Urea Nitrogen 4mg/dL (8-26) Creatinine 0.8mg/dL (0.7-1.3) Estimated GFR (Cockcroft-Gault) 95.8 BUN/Creatinine Ratio 5 (6-20) Glucose Level 89mg/dL (70-99) Calcium Level 8.1mg/dL (8.5-10.1) Magnesium Level 1.7mg/dL (1.8-2.4) Total Bilirubin 0.3mg/dL (0.2-1.0) Aspartate Amino Transf (AST/SGOT) 24U/L (15-37) Alanine Aminotransferase (ALT/SGPT) 31U/L (16-63) Alkaline Phosphatase 83U/L (46-116) Total Protein 5.5g/dL (6.4-8.2) Albumin 2.2g/dL (3.4-5.0) Albumin/Globulin Ratio 0.7 (1.0-1.7) Test 06/21/16 05:34 Glucose (Fingerstick) 81mg/dL (70-99) Allergies: Coded Allergies: I S O L A T I O N *CONTACT* (Verified Allergy, Unknown, 04/14/16) mrsa No Known Medication Allergies (Verified Allergy, Unknown, 04/14/16) Medications: Current Medications Medications (Trade) Dose Ordered Sig/Juan R Route PRN Reason Start Time Stop Time Status Last Admin Dose Admin Potassium Chloride 20 meq 20 meq 1X ONCE PO 06/20/16 16:00 06/20/16 16:01 DC 06/20/16 16:58 Potassium Chloride/Dextrose 1,020 ml @ 50 mls/hr [id number] IV 06/20/16 11:00 06/21/16 05:49 Ondansetron HCl (Zofran) 4 mg PRN Q8HRS PRN IV NAUSEA/VOMITING 06/20/16 13:00 06/20/16 13:17 Fentanyl Citrate 50 mcg 50 mcg PRN Q2HR PRN IV PAIN 06/21/16 09:15 06/21/16 09:39 Magnesium Sulfate/ Dextrose (Magnesium Sulfate PREMIX 2GM) 50 ml @ 25 mls/hr 1X ONCE IV 06/21/16 10:00 06/21/16 11:59 06/21/16 09:40 Imaging: Imaging: - PE: GEN: NAD HEENT: Atraumatic, PERRL LUNGS: CTAB anteriorly HEART: RRR ABD: pretty active bowel sounds, S/ND/NT EXTREMITY: No edema SKIN: right foot and hip wounds NEURO/PSYCH: A & O 3 OTHER: wound care present A/P: A/P: Diarrhea -for about 1 week, watery stools during the day and overnight -recent atbx use but C Diff neg -on empiric Flagyl -worse after eating Vomiting -intermittent CRC screen -recalls previous colonoscopies @[facility] RLE wounds -- Await stool culture. Will obtain records from [facility] re: previous 'scopes. GRICELDA PATRICIO Jun 21, 2016 10:26
[2016-06-21] MEDS: ENOXAPARIN 40 MG/0.4 ML DISP.SYRIN. SQ SCH (14:21)
[2016-06-21] MEDS: ONDANSETRON PF 4 MG/2 ML VIAL. IV PRN (19:24)
[2016-06-21] MEDS: ATORVASTATIN CALCIUM 40 MG TABLET. PO SCH (21:01)
[2016-06-22] MEDS: POTASSIUM CHLORIDE 40 MEQ in IV DEXTROSE 5% 1,000 ML IV SCH (02:11)
[2016-06-22 03:00] VITALS: BP 105/56
[2016-06-22] MEDS: LOPERAMIDE 2 MG CAPSULE PO PRN (05:48)
[2016-06-22] MEDS: LEVOTHYROXINE 88 MCG TABLET PO SCH (05:48)
[2016-06-22] MEDS: METRONIDAZOLE 500 MG TABLET. PO SCH (05:49)
[2016-06-22 06:53] LABS: BASO % 0 % (0-3); EOS % 2 % (0-3); HEMATOCRIT 37.6 % (39.0-53.0); HEMOGLOBIN 12.6 g/dL (13.0-17.5); LYMPH # 1.6 x10^3/uL (1.0-4.8); LYMPH % 19 % (24-48); MEAN CORPUSCULAR HEMOGLOBIN 32 pg (25-35); MEAN CORPUSCULAR HGB CONC 33 g/dL (31-37); MEAN CORPUSCULAR VOLUME 96 fL (79-100); MONO % 11 % (0-9); NEUT % 68 % (31-73); PLATELET COUNT 261 x10^3/uL (140-400); RED BLOOD COUNT 3.94 x10^6/uL (4.30-5.70); RED CELL DISTRIBUTION WIDTH 13.5 % (11.5-14.5); WHITE BLOOD COUNT 8.2 x10^3/uL (4.0-11.0)
[2016-06-22 07:00] VITALS: BP 96/47
[2016-06-22 07:06] LABS: ALBUMIN 2.4 g/dL (3.4-5.0); ALBUMIN/GLOBULIN RATIO 0.8 (1.0-1.7); CALCIUM 8.3 mg/dL (8.5-10.1); CREATININE 0.8 mg/dL (0.7-1.3); GFR 95.8; POTASSIUM 4.7 mmol/L (3.5-5.1); TOTAL BILIRUBIN 0.5 mg/dL (0.2-1.0); TOTAL PROTEIN 5.4 g/dL (6.4-8.2)
[2016-06-22] MEDS: CARVEDILOL 3.125 MG TABLET PO SCH ×2 (08:00→17:19)
[2016-06-22] MEDS: PANTOPRAZOLE 40 MG TABLET. PO SCH (08:34)
[2016-06-22] MEDS: HYDROXYCHLOROQUINE 200 MG TABLET PO SCH ×2 (08:35→20:12)
[2016-06-22] MEDS: HYDROCODONE/APAP 7.5/325MG TABLET. PO PRN (08:35)
[2016-06-22] MEDS: POTASSIUM CHLORIDE 20 MEQ TABLET.ER. PO SCH ×2 (08:35→17:19)
[2016-06-22] MEDS: CLOPIDOGREL BISULFATE 75 MG TABLET PO SCH (08:35)
[2016-06-22] MEDS: AMIODARONE HCL 200 MG TABLET PO SCH (08:35)
[2016-06-22] MEDS: PREDNISONE 5 MG TABLET PO SCH (08:35)
--- NOTE | 2016-06-22 09:32 | PDOC ---
IM PROGRESS NOTES- Subjective Subjective immodium not decreasing watery diarrhea stools. Attempted to eat supper last night and vomited. Objective Objective alert, weak Vitals Vital Signs Date Time Temp Pulse Resp B/P Pulse Ox O2 Delivery O2 Flow Rate FiO2 06/22/16 08:35 Room Air 06/22/16 08:35 69 96/47 06/22/16 07:00 98.6 18 97 98.6 Input & Output Intake and Output 06/22/16 07:00 Intake Total 350 ml Output Total 1350 ml Balance -1000 ml Intake Oral 350 ml Output Urine Total 950 ml Emesis 400 ml # Voids 2 # Bowel Movements 3 Physical Exam Physical Exam General appearance - alert, chronically ill appearing, and in no distress Mental Status - alert, oriented to person, place, and time, affect appropriate to mood Head - normal Chest - clear to auscultation, no wheezes, rales or rhonchi, symmetric air entry Heart - S1 and S2 normal Abdomen - soft, nontender, nondistended, BS + Neurological - no acute focal neurological deficits Musculoskeletal - R hip Extremities - no pedal edema, wound vac R hip, R heel wound Skin - warm and dry Labs Laboratory Tests Test 06/20/16 10:44 06/20/16 16:10 06/20/16 20:46 06/21/16 04:30 Glucose (Fingerstick) 75mg/dL (70-99) 99mg/dL (70-99) 77mg/dL (70-99) White Blood Count 7.3x10^3/uL (4.0-11.0) Red Blood Count 3.66x10^6/uL (4.30-5.70) Hemoglobin 11.6g/dL (13.0-17.5) Hematocrit 35.0% (39.0-53.0) Mean Corpuscular Volume 96fL (79-100) Mean Corpuscular Hemoglobin 32pg (25-35) Mean Corpuscular Hemoglobin Concent 33g/dL (31-37) Red Cell Distribution Width 13.3% (11.5-14.5) Platelet Count 242x10^3/uL (140-400) Neutrophils (%) (Auto) 75% (31-73) Lymphocytes (%) (Auto) 14% (24-48) Monocytes (%) (Auto) 9% (0-9) Eosinophils (%) (Auto) 2% (0-3) Basophils (%) (Auto) 0% (0-3) Neutrophils # (Auto) 5.5x10^3uL (1.8-7.7) Lymphocytes # (Auto) 1.1x10^3/uL (1.0-4.8) Monocytes # (Auto) 0.6x10^3/uL (0.0-1.1) Eosinophils # (Auto) 0.2x10^3/uL (0.0-0.7) Basophils # (Auto) 0.0x10^3/uL (0.0-0.2) Sodium Level 144mmol/L (136-145) Potassium Level 4.0mmol/L (3.5-5.1) Chloride Level 111mmol/L (98-107) Carbon Dioxide Level 23mmol/L (21-32) Anion Gap 10 (6-14) Blood Urea Nitrogen 4mg/dL (8-26) Creatinine 0.8mg/dL (0.7-1.3) Estimated GFR (Cockcroft-Gault) 95.8 BUN/Creatinine Ratio 5 (6-20) Glucose Level 89mg/dL (70-99) Calcium Level 8.1mg/dL (8.5-10.1) Magnesium Level 1.7mg/dL (1.8-2.4) Total Bilirubin 0.3mg/dL (0.2-1.0) Aspartate Amino Transf (AST/SGOT) 24U/L (15-37) Alanine Aminotransferase (ALT/SGPT) 31U/L (16-63) Alkaline Phosphatase 83U/L (46-116) Total Protein 5.5g/dL (6.4-8.2) Albumin 2.2g/dL (3.4-5.0) Albumin/Globulin Ratio 0.7 (1.0-1.7) Cortisol AM Sample 5.6ug/dL (6.2-19.4) Test 06/21/16 05:34 06/21/16 07:15 06/21/16 10:20 06/21/16 12:20 Glucose (Fingerstick) 81mg/dL (70-99) 81mg/dL (70-99) 88mg/dL (70-99) Cortisol PM Sample 14.3ug/dL (2.3-11.9) Test 06/21/16 16:17 06/21/16 20:50 06/22/16 05:50 06/22/16 05:55 Glucose (Fingerstick) 92mg/dL (70-99) 101mg/dL (70-99) White Blood Count 8.2x10^3/uL (4.0-11.0) Red Blood Count 3.94x10^6/uL (4.30-5.70) Hemoglobin 12.6g/dL (13.0-17.5) Hematocrit 37.6% (39.0-53.0) Mean Corpuscular Volume 96fL (79-100) Mean Corpuscular Hemoglobin 32pg (25-35) Mean Corpuscular Hemoglobin Concent 33g/dL (31-37) Red Cell Distribution Width 13.5% (11.5-14.5) Platelet Count 261x10^3/uL (140-400) Neutrophils (%) (Auto) 68% (31-73) Lymphocytes (%) (Auto) 19% (24-48) Monocytes (%) (Auto) 11% (0-9) Eosinophils (%) (Auto) 2% (0-3) Basophils (%) (Auto) 0% (0-3) Neutrophils # (Auto) 5.6x10^3uL (1.8-7.7) Lymphocytes # (Auto) 1.6x10^3/uL (1.0-4.8) Monocytes # (Auto) 0.9x10^3/uL (0.0-1.1) Eosinophils # (Auto) 0.2x10^3/uL (0.0-0.7) Basophils # (Auto) 0.0x10^3/uL (0.0-0.2) Magnesium Level 1.9mg/dL (1.8-2.4) Sodium Level 140mmol/L (136-145) Potassium Level 4.7mmol/L (3.5-5.1) Chloride Level 106mmol/L (98-107) Carbon Dioxide Level 25mmol/L (21-32) Anion Gap 9 (6-14) Blood Urea Nitrogen 4mg/dL (8-26) Creatinine 0.8mg/dL (0.7-1.3) Estimated GFR (Cockcroft-Gault) 95.8 BUN/Creatinine Ratio 5 (6-20) Glucose Level 85mg/dL (70-99) Calcium Level 8.3mg/dL (8.5-10.1) Total Bilirubin 0.5mg/dL (0.2-1.0) Aspartate Amino Transf (AST/SGOT) 37U/L (15-37) Alanine Aminotransferase (ALT/SGPT) 38U/L (16-63) Alkaline Phosphatase 165U/L (46-116) Total Protein 5.4g/dL (6.4-8.2) Albumin 2.4g/dL (3.4-5.0) Albumin/Globulin Ratio 0.8 (1.0-1.7) Laboratory Tests Test 06/21/16 10:20 06/21/16 12:20 06/21/16 16:17 06/21/16 20:50 Glucose (Fingerstick) 88mg/dL (70-99) 92mg/dL (70-99) 101mg/dL (70-99) Cortisol PM Sample 14.3ug/dL (2.3-11.9) Test 06/22/16 05:50 06/22/16 05:55 White Blood Count 8.2x10^3/uL (4.0-11.0) Red Blood Count 3.94x10^6/uL (4.30-5.70) Hemoglobin 12.6g/dL (13.0-17.5) Hematocrit 37.6% (39.0-53.0) Mean Corpuscular Volume 96fL (79-100) Mean Corpuscular Hemoglobin 32pg (25-35) Mean Corpuscular Hemoglobin Concent 33g/dL (31-37) Red Cell Distribution Width 13.5% (11.5-14.5) Platelet Count 261x10^3/uL (140-400) Neutrophils (%) (Auto) 68% (31-73) Lymphocytes (%) (Auto) 19% (24-48) Monocytes (%) (Auto) 11% (0-9) Eosinophils (%) (Auto) 2% (0-3) Basophils (%) (Auto) 0% (0-3) Neutrophils # (Auto) 5.6x10^3uL (1.8-7.7) Lymphocytes # (Auto) 1.6x10^3/uL (1.0-4.8) Monocytes # (Auto) 0.9x10^3/uL (0.0-1.1) Eosinophils # (Auto) 0.2x10^3/uL (0.0-0.7) Basophils # (Auto) 0.0x10^3/uL (0.0-0.2) Magnesium Level 1.9mg/dL (1.8-2.4) Sodium Level 140mmol/L (136-145) Potassium Level 4.7mmol/L (3.5-5.1) Chloride Level 106mmol/L (98-107) Carbon Dioxide Level 25mmol/L (21-32) Anion Gap 9 (6-14) Blood Urea Nitrogen 4mg/dL (8-26) Creatinine 0.8mg/dL (0.7-1.3) Estimated GFR (Cockcroft-Gault) 95.8 BUN/Creatinine Ratio 5 (6-20) Glucose Level 85mg/dL (70-99) Calcium Level 8.3mg/dL (8.5-10.1) Total Bilirubin 0.5mg/dL (0.2-1.0) Aspartate Amino Transf (AST/SGOT) 37U/L (15-37) Alanine Aminotransferase (ALT/SGPT) 38U/L (16-63) Alkaline Phosphatase 165U/L (46-116) Total Protein 5.4g/dL (6.4-8.2) Albumin 2.4g/dL (3.4-5.0) Albumin/Globulin Ratio 0.8 (1.0-1.7) Meds Current Medications Fluconazole/ Sodium Chloride (Diflucan 400mg/ 200ml Premix) 200 ml @ 100 mls/ hr Q24H IV ; Start 06/22/16 at 09:30; Status UNV Magnesium Sulfate/ Dextrose (Magnesium Sulfate PREMIX 2GM) 50 ml @ 25 mls/hr 1X ONCE IV Last administered on 06/21/16t 09:40; Start 06/21/16 at 10:00; Stop 06/21/16 at 11:59; Status DC Oxycodone HCl 10 mg 10 mg PRN Q4HRS PRN PO PAIN; Start 06/22/16 at 09:30; Status UNV Assessment Assessment 1.acute diarrhea with severe weakness +yeast gram stain 2. R hip wound with wound vac POA 3. R hip pain chronic 4. CHF EF 35-40% per ECHO stable at admission, not acute 5. DM II with neuropathy insulin controlled, 6. hyperlipidemia 7. anemia chronic B12 deficiency 8. CAD with h/o [place], CABG x4 9. Rheumatoid arthritis 10. 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 diverticulosis 12. severe depression single episode mildly active 13 CKD II 14. severe weakness and debility 15. severe PCL malnutrition with trace ketonuria 16. seborrheic dermatitis 17. OA R hip severe 18. 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 Polyarthralgia. 20. Primary polyarticular osteoarthritis. 21 DMARD monitoring. 22. Chronic nonsteroidal antiinflammatory drug use. 23. R hip decubitus ulcer stage III s/p debridement 04/14/16 PLAN: diarrhea stool work up pending C diff negative 06/20 Immodium prn after stool studies obtained stool studies pending currently Flagyl 500 IV [id number] 06/22, diarrhea worse -GI consult Gram stain stool-yeast, final culture pending. 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-supplements low carb continue immodium for now Lactobacillus 1 tablet tid with meals GI- Cortisol level-14.3 --chronic steroids (prednisone 5mg daily) wound R hip/R foot continue wound vac R hip wound care R heel wound care consult ordered wound vac R foot to be placed severe PCL malnutrition supplement begin PPN 06/22 motorcycle mechanic consult-supplements low carb check weight today CKD II Admit Na 145 06/22 140 K 3.9 4.7 BUN 20 4 Cr 1.0 0.8 Mg 1.9 replace K with 20 meq today IVF with 40 K 50cc/hr 06/20-DC 06/22 Mg SO4 2 gm IV today 06/21 DM II FSBS/ssi BS 85-101 severe weakness and debility PT OT DVT/GI prophylaxis lovenox PPI acute on chronic pain Fentanyl not helping pain, oral pain med helps more Will begin Tylenol 1gm bid Change to oxycodone 10mg q 4 hour prn. DC Fentanyl. For more details regarding further plans, please refer to the orders. Plan Plan For more details regarding further plans, please refer to the orders. HERNANDEZ WARD APRN Jun 22, 2016 09:32
[2016-06-22] MEDS: ONDANSETRON PF 4 MG/2 ML VIAL. IV PRN ×2 (09:58→20:11)
--- NOTE | 2016-06-22 10:28 | PDOC ---
G I PROGRESS NOTE Subjective Diarrhea continues. Some emesis yesterday; nausea this AM. Physical Exam Lungs clear. RRR Abdomen soft, not tender nor distended. Review of Relevant I have reviewed the following items rodolfo (where applicable) has been applied. Labs Laboratory Tests Test 06/20/16 10:44 06/20/16 16:10 06/20/16 20:46 06/21/16 04:30 Glucose (Fingerstick) 75mg/dL (70-99) 99mg/dL (70-99) 77mg/dL (70-99) White Blood Count 7.3x10^3/uL (4.0-11.0) Red Blood Count 3.66x10^6/uL (4.30-5.70) Hemoglobin 11.6g/dL (13.0-17.5) Hematocrit 35.0% (39.0-53.0) Mean Corpuscular Volume 96fL (79-100) Mean Corpuscular Hemoglobin 32pg (25-35) Mean Corpuscular Hemoglobin Concent 33g/dL (31-37) Red Cell Distribution Width 13.3% (11.5-14.5) Platelet Count 242x10^3/uL (140-400) Neutrophils (%) (Auto) 75% (31-73) Lymphocytes (%) (Auto) 14% (24-48) Monocytes (%) (Auto) 9% (0-9) Eosinophils (%) (Auto) 2% (0-3) Basophils (%) (Auto) 0% (0-3) Neutrophils # (Auto) 5.5x10^3uL (1.8-7.7) Lymphocytes # (Auto) 1.1x10^3/uL (1.0-4.8) Monocytes # (Auto) 0.6x10^3/uL (0.0-1.1) Eosinophils # (Auto) 0.2x10^3/uL (0.0-0.7) Basophils # (Auto) 0.0x10^3/uL (0.0-0.2) Sodium Level 144mmol/L (136-145) Potassium Level 4.0mmol/L (3.5-5.1) Chloride Level 111mmol/L (98-107) Carbon Dioxide Level 23mmol/L (21-32) Anion Gap 10 (6-14) Blood Urea Nitrogen 4mg/dL (8-26) Creatinine 0.8mg/dL (0.7-1.3) Estimated GFR (Cockcroft-Gault) 95.8 BUN/Creatinine Ratio 5 (6-20) Glucose Level 89mg/dL (70-99) Calcium Level 8.1mg/dL (8.5-10.1) Magnesium Level 1.7mg/dL (1.8-2.4) Total Bilirubin 0.3mg/dL (0.2-1.0) Aspartate Amino Transf (AST/SGOT) 24U/L (15-37) Alanine Aminotransferase (ALT/SGPT) 31U/L (16-63) Alkaline Phosphatase 83U/L (46-116) Total Protein 5.5g/dL (6.4-8.2) Albumin 2.2g/dL (3.4-5.0) Albumin/Globulin Ratio 0.7 (1.0-1.7) Cortisol AM Sample 5.6ug/dL (6.2-19.4) Test 06/21/16 05:34 06/21/16 07:15 06/21/16 10:20 06/21/16 12:20 Glucose (Fingerstick) 81mg/dL (70-99) 81mg/dL (70-99) 88mg/dL (70-99) Cortisol PM Sample 14.3ug/dL (2.3-11.9) Test 06/21/16 16:17 06/21/16 20:50 06/22/16 05:50 06/22/16 05:55 Glucose (Fingerstick) 92mg/dL (70-99) 101mg/dL (70-99) White Blood Count 8.2x10^3/uL (4.0-11.0) Red Blood Count 3.94x10^6/uL (4.30-5.70) Hemoglobin 12.6g/dL (13.0-17.5) Hematocrit 37.6% (39.0-53.0) Mean Corpuscular Volume 96fL (79-100) Mean Corpuscular Hemoglobin 32pg (25-35) Mean Corpuscular Hemoglobin Concent 33g/dL (31-37) Red Cell Distribution Width 13.5% (11.5-14.5) Platelet Count 261x10^3/uL (140-400) Neutrophils (%) (Auto) 68% (31-73) Lymphocytes (%) (Auto) 19% (24-48) Monocytes (%) (Auto) 11% (0-9) Eosinophils (%) (Auto) 2% (0-3) Basophils (%) (Auto) 0% (0-3) Neutrophils # (Auto) 5.6x10^3uL (1.8-7.7) Lymphocytes # (Auto) 1.6x10^3/uL (1.0-4.8) Monocytes # (Auto) 0.9x10^3/uL (0.0-1.1) Eosinophils # (Auto) 0.2x10^3/uL (0.0-0.7) Basophils # (Auto) 0.0x10^3/uL (0.0-0.2) Magnesium Level 1.9mg/dL (1.8-2.4) Sodium Level 140mmol/L (136-145) Potassium Level 4.7mmol/L (3.5-5.1) Chloride Level 106mmol/L (98-107) Carbon Dioxide Level 25mmol/L (21-32) Anion Gap 9 (6-14) Blood Urea Nitrogen 4mg/dL (8-26) Creatinine 0.8mg/dL (0.7-1.3) Estimated GFR (Cockcroft-Gault) 95.8 BUN/Creatinine Ratio 5 (6-20) Glucose Level 85mg/dL (70-99) Calcium Level 8.3mg/dL (8.5-10.1) Total Bilirubin 0.5mg/dL (0.2-1.0) Aspartate Amino Transf (AST/SGOT) 37U/L (15-37) Alanine Aminotransferase (ALT/SGPT) 38U/L (16-63) Alkaline Phosphatase 165U/L (46-116) Total Protein 5.4g/dL (6.4-8.2) Albumin 2.4g/dL (3.4-5.0) Albumin/Globulin Ratio 0.8 (1.0-1.7) Laboratory Tests Test 06/21/16 12:20 06/21/16 16:17 06/21/16 20:50 06/22/16 05:50 Cortisol PM Sample 14.3ug/dL (2.3-11.9) Glucose (Fingerstick) 92mg/dL (70-99) 101mg/dL (70-99) White Blood Count 8.2x10^3/uL (4.0-11.0) Red Blood Count 3.94x10^6/uL (4.30-5.70) Hemoglobin 12.6g/dL (13.0-17.5) Hematocrit 37.6% (39.0-53.0) Mean Corpuscular Volume 96fL (79-100) Mean Corpuscular Hemoglobin 32pg (25-35) Mean Corpuscular Hemoglobin Concent 33g/dL (31-37) Red Cell Distribution Width 13.5% (11.5-14.5) Platelet Count 261x10^3/uL (140-400) Neutrophils (%) (Auto) 68% (31-73) Lymphocytes (%) (Auto) 19% (24-48) Monocytes (%) (Auto) 11% (0-9) Eosinophils (%) (Auto) 2% (0-3) Basophils (%) (Auto) 0% (0-3) Neutrophils # (Auto) 5.6x10^3uL (1.8-7.7) Lymphocytes # (Auto) 1.6x10^3/uL (1.0-4.8) Monocytes # (Auto) 0.9x10^3/uL (0.0-1.1) Eosinophils # (Auto) 0.2x10^3/uL (0.0-0.7) Basophils # (Auto) 0.0x10^3/uL (0.0-0.2) Magnesium Level 1.9mg/dL (1.8-2.4) Test 06/22/16 05:55 Sodium Level 140mmol/L (136-145) Potassium Level 4.7mmol/L (3.5-5.1) Chloride Level 106mmol/L (98-107) Carbon Dioxide Level 25mmol/L (21-32) Anion Gap 9 (6-14) Blood Urea Nitrogen 4mg/dL (8-26) Creatinine 0.8mg/dL (0.7-1.3) Estimated GFR (Cockcroft-Gault) 95.8 BUN/Creatinine Ratio 5 (6-20) Glucose Level 85mg/dL (70-99) Calcium Level 8.3mg/dL (8.5-10.1) Total Bilirubin 0.5mg/dL (0.2-1.0) Aspartate Amino Transf (AST/SGOT) 37U/L (15-37) Alanine Aminotransferase (ALT/SGPT) 38U/L (16-63) Alkaline Phosphatase 165U/L (46-116) Total Protein 5.4g/dL (6.4-8.2) Albumin 2.4g/dL (3.4-5.0) Albumin/Globulin Ratio 0.8 (1.0-1.7) Microbiology 06/20/16 Fecal Leukocyte Stain - Final, Complete--Yeast seen, no white cells. 06/18/16 Urine Culture - Final, Complete 06/18/16 Urine Culture Result 1 (HAIDER) - Final, Complete Cortisol OK. Stool culture pending (suspect will have no normal dejan). Medications Current Medications Sodium Chloride (Iv Sodium Chloride 0.9% 1000ml Bag) 1,000 ml @ 100 mls/hr Q10H IV Last administered on 06/18/16 13:22; Start 06/18/16 at 12:15; Stop at 22:14; Status DC Ondansetron HCl (Zofran) 4 mg 1X ONCE IV Last administered on 06/18/16 12:32 ; Start 06/18/16 at 12:15; Stop 06/18/16 at 12:16; Status DC Famotidine 20 mg 20 mg 1X ONCE IVP Last administered on 06/18/16 12:31; Start 06/18/16 at 12:15; Stop 06/18/16 at 12:16; Status DC Sodium Chloride (Iv Sodium Chloride 0.9% 500ml Bag) 500 ml @ 500 mls/hr 1X ONCE IV Last administered on 06/18/16 12:30; Start 06/18/16 at 12:15; Stop at 13:14; Status DC Ondansetron HCl (Zofran) 4 mg PRN Q8HRS PRN IV NAUSEA/VOMITING; Start 06/18/16 at 13:45; Stop 06/19/16 at 13:44; Status DC Fentanyl Citrate 50 mcg 50 mcg PRN Q2HR PRN IV PAIN; Start 06/18/16 at 13:45; Stop 06/19/16 at 13:44; Status DC Sodium Chloride (Iv Sodium Chloride 0.9% 1000ml Bag) 1,000 ml @ 100 mls/hr Q10H IV Last administered on 06/19/16 17:12; Start 06/18/16 at 14:00; Stop at 14:05; Status DC Acetaminophen (Tylenol) 650 mg PRN Q4HRS PRN PO FEVER; Start 06/18/16 at 13:45 ; Stop 06/19/16 at 13:44; Status DC Metronidazole (Flagyl) 500 mg Q8HRS PO Last administered on 06/22/16 05:49; Start 06/18/16 at 14:00; Stop 06/22/16 at 09:21; Status DC Dextrose 25 gm STK-MED ONCE IV Last administered on 06/19/16 12:40; Start at 12:30; Stop 06/19/16 at 12:31; Status DC Potassium Chloride (Klor-Con) 40 meq 1X ONCE PO Last administered on 17:13; Start 06/19/16 at 13:45; Stop 06/19/16 at 13:46; Status DC Amiodarone HCl (Cordarone) 200 mg DAILY PO Last administered on 06/22/16 08:35 ; Start 06/19/16 at 14:00 Atorvastatin Calcium (Lipitor) 40 mg HS PO Last administered on 06/21/16 21:01 ; Start 06/19/16 at 21:00 Carvedilol (Coreg) 3.125 mg BIDWMEALS PO Last administered on 06/21/16 16:58; Start 06/19/16 at 17:00 Clopidogrel Bisulfate (Plavix) 75 mg DAILY PO Last administered on 06/22/16 08 :35; Start 06/19/16 at 14:00 Acetaminophen/ Hydrocodone Bitart (Lortab 7.5/325) 1 tab PRN Q4HRS PRN PO PAIN Last administered on 06/22/16 08:35; Start 06/19/16 at 13:45; Stop 06/22/16 at 09:21; Status DC Hydroxychloroquine Sulfate (Plaquenil) 200 mg BID PO Last administered on 08:35; Start 06/19/16 at 21:00 Levothyroxine Sodium (Synthroid) 88 mcg DAILY07 PO Last administered on 05:48; Start 06/20/16 at 07:00 Pantoprazole Sodium (Protonix) 40 mg DAILYAC PO Last administered on 06/22/16 08:34; Start 06/19/16 at 16:30 Potassium Chloride (Klor-Con) 40 meq BIDWMEALS PO Last administered on 08:35; Start 06/19/16 at 17:00 Prednisone (Prednisone) 5 mg DAILY PO Last administered on 06/22/16 08:35; Start 06/19/16 at 14:00 Enoxaparin Sodium (Lovenox 40mg Syringe) 40 mg Q24H SQ Last administered on 14:21; Start 06/19/16 at 14:00 Dextrose 12.5 gm PRN Q15MIN PRN IV SEE COMMENTS; Start 06/19/16 at 17:00 Potassium Chloride (Klor-Con) 20 meq 1X ONCE PO Last administered on 16:58; Start 06/20/16 at 16:00; Stop 06/20/16 at 16:01; Status DC Loperamide HCl 2 mg 2 mg PRN Q15MIN PRN PO AFTER EACH LOOSE STOOL Last administered on 06/22/16 05:48; Start 06/20/16 at 09:00 Potassium Chloride/Dextrose 1,020 ml @ 50 mls/hr [id number] IV Last administered on 06/22/16 02:11; Start 06/20/16 at 11:00; Stop 06/22/16 at 09:21; Status DC Ondansetron HCl (Zofran) 4 mg PRN Q8HRS PRN IV NAUSEA/VOMITING Last administered on 06/22/16 09:58; Start 06/20/16 at 13:00 Fentanyl Citrate (Fentanyl 2ml Vial) 50 mcg PRN Q2HR PRN IV PAIN Last administered on 06/21/16 14:21; Start 06/21/16 at 09:15; Stop 06/22/16 at 09:21 ; Status DC Fentanyl Citrate 25 mcg 25 mcg PRN Q2HR PRN IV PAIN; Start 06/21/16 at 09:15; Stop 06/22/16 at 09:21; Status DC Magnesium Sulfate/ Dextrose (Magnesium Sulfate PREMIX 2GM) 50 ml @ 25 mls/hr 1X ONCE IV Last administered on 06/21/16t 09:40; Start 06/21/16 at 10:00; Stop 06/21/16 at 11:59; Status DC Oxycodone HCl 10 mg 10 mg PRN Q4HRS PRN PO PAIN; Start 06/22/16 at 09:30 Fluconazole/ Sodium Chloride (Diflucan 400mg/ 200ml Premix) 200 ml @ 100 mls/ hr Q24H IV ; Start 06/22/16 at 11:00 Lactobacillus Acidophilus 1 tab 1 tab DAILY PO ; Start 06/23/16 at 09:00; Stop 06/23/16 at 09:00; Status DC Amino Acids/ Electrolytes (Clinimix E 2.75%-5% Solution) 2,000 ml @ 80 mls/hr Q24H IV ; Start 06/22/16 at 11:00 Lactobacillus Acidophilus (Bacid, Cesilia-Bid) 1 tab TID PO ; Start 06/22/16 at 14: 00 Acetaminophen (Tylenol) 1,000 mg BID PO ; Start 06/22/16 at 11:00 Active Scripts Active Hydroxychloroquine Sulfate 200 Mg Tablet 200 Mg PO BID Ketoconazole 120 Ml Shampoo 1 Mari TP DAILY Klor-Con M20 (Potassium Chloride) 20 Meq Tab.er.prt 40 Meq PO BIDWMEALS Carvedilol 3.125 Mg Tablet 3.125 Mg PO BIDWMEALS Senna-Time S Tablet (Sennosides/Docusate Sodium) 1 Each Tablet 1 Tab PO DAILY Miralax (Polyethylene Glycol 3350) 17 Gm Powd.pack 17 Gm PO PRN DAILY PRN Pantoprazole Sodium 40 Mg Tablet.dr 40 Mg PO DAILY Synthroid (Levothyroxine Sodium) 88 Mcg Tablet 88 Mcg PO DAILY07 Hydrocodone-Apap 7.5-325 (Hydrocodone Bit/Acetaminophen) 1 Each Tablet 1 Tab PO PRN Q4HRS PRN Reported Prednisone 5 Mg Tablet 5 Mg PO DAILY Lipitor (Atorvastatin Calcium) 40 Mg Tablet 40 Mg PO HS Amiodarone Hcl 200 Mg Tablet 200 Mg PO DAILY Clopidogrel (Clopidogrel Bisulfate) 75 Mg Tablet 75 Mg PO DAILY Vitals/I & O Vital Sign - Last 24 Hours 06/21/16 06/21/16 06/21/16 06/21/16 10:59 11:06 14:21 14:31 Temp 96.6 99.0 96.6 99.0 Pulse 67 66 Resp 20 20 B/P 91/42 89/37 Pulse Ox 97 97 O2 Delivery Room Air Room Air Room Air Room Air 06/21/16 06/21/16 06/21/16 06/21/16 14:54 16:57 16:58 18:03 Pulse 72 B/P 109/62 112/60 O2 Delivery Room Air Room Air 06/21/16 06/21/16 06/21/16 06/22/16 19:00 21:02 23:00 03:00 Temp 98.6 98.3 97.6 98.6 98.3 97.6 Pulse 78 76 76 Resp 20 18 20 20 B/P 123/66 102/56 105/56 Pulse Ox 93 95 95 O2 Delivery Room Air Room Air Room Air Room Air 06/22/16 06/22/16 06/22/16 06/22/16 07:00 08:00 08:00 08:35 Temp 98.6 98.6 Pulse 69 69 69 Resp 18 B/P 96/47 96/47 96/47 Pulse Ox 97 O2 Delivery Room Air Room Air 06/22/16 08:35 O2 Delivery Room Air Intake and Output 06/21/16 06/21/16 06/22/16 15:00 23:00 07:00 Intake Total 350 ml Output Total 1350 ml Balance -1350 ml 350 ml Problem List Problems Medical Problems: (1) Diarrhea Status: Acute (2) Failure to thrive Status: Acute (3) Nausea and vomiting Status: Acute (4) Severe protein-calorie malnutrition Status: Acute Assessment Suspect antibiotic-related diarrhea; can have C.diff with negative assay and perhaps this is it. Yeast normally found in small numbers in stool; seeing this on gram stain likely a result of wiping out normal dejan with the antibiotics. Plan of Care Note Would not give Diflucan. Empiric vancomycin as if C.diff. At least 2 weeks beyond end of any broad- spectrum antibiotic. Could consider bile-binding resin for diarrhea; would be judicious with Imodium. Continue PPI, etc. CEDRICK BELTRAN MD Jun 22, 2016 10:28
[2016-06-22 10:36] VITALS: BP 91/53
[2016-06-22] MEDS ORDERED: FLUCONAZOLE 400MG/200ML PREMIX 200 ML IV SCH (11:00)
[2016-06-22] MEDS: ACETAMINOPHEN 500 MG TABLET PO SCH ×2 (11:24→20:12)
[2016-06-22] MEDS: OXYCODONE IR 5 MG TABLET. PO PRN ×2 (11:24→17:22)
[2016-06-22] MEDS: AA 2.75%/CALCIUM/LYTES/D5W 2,000 ML IV SCH (11:24)
[2016-06-22] MEDS: ENOXAPARIN 40 MG/0.4 ML DISP.SYRIN. SQ SCH (13:47)
[2016-06-22] MEDS: VANCOMYCIN 125 MG/2.5 ML ORAL SOLUTION. PO SCH ×3 (13:47→20:11)
[2016-06-22] MEDS: LACTOBACILLUS ACIDOPH & BULGAR 1 TABLET. PO SCH ×2 (13:47→20:12)
[2016-06-22 15:00] VITALS: BP 100/54
[2016-06-22] MEDS: CHOLESTYRAMINE/ASPARTAME 4 GM PACKET PO SCH ×2 (17:19→21:50)
[2016-06-22 19:00] VITALS: BP 101/59
[2016-06-22] MEDS: ATORVASTATIN CALCIUM 40 MG TABLET. PO SCH (20:12)
[2016-06-22 22:34] VITALS: BP 111/66
[2016-06-23 05:24] LABS: BASO % 0 % (0-3); EOS % 2 % (0-3); HEMATOCRIT 38.7 % (39.0-53.0); HEMOGLOBIN 13.1 g/dL (13.0-17.5); LYMPH # 1.1 x10^3/uL (1.0-4.8); LYMPH % 13 % (24-48); MEAN CORPUSCULAR HEMOGLOBIN 32 pg (25-35); MEAN CORPUSCULAR HGB CONC 34 g/dL (31-37); MEAN CORPUSCULAR VOLUME 94 fL (79-100); MONO % 10 % (0-9); NEUT % 75 % (31-73); PLATELET COUNT 279 x10^3/uL (140-400); RED BLOOD COUNT 4.12 x10^6/uL (4.30-5.70); RED CELL DISTRIBUTION WIDTH 13.5 % (11.5-14.5); WHITE BLOOD COUNT 8.9 x10^3/uL (4.0-11.0)
[2016-06-23 05:52] LABS: ALBUMIN 2.3 g/dL (3.4-5.0); ALBUMIN/GLOBULIN RATIO 0.7 (1.0-1.7); CALCIUM 8.4 mg/dL (8.5-10.1); CREATININE 0.8 mg/dL (0.7-1.3); GFR 95.8; POTASSIUM 4.3 mmol/L (3.5-5.1); TOTAL BILIRUBIN 0.4 mg/dL (0.2-1.0); TOTAL PROTEIN 5.5 g/dL (6.4-8.2)
[2016-06-23] MEDS: LEVOTHYROXINE 88 MCG TABLET PO SCH (06:28)
[2016-06-23] MEDS: PANTOPRAZOLE 40 MG TABLET. PO SCH (06:28)
[2016-06-23 07:00] VITALS: BP 130/76
[2016-06-23] MEDS: CLOPIDOGREL BISULFATE 75 MG TABLET PO SCH (08:36)
[2016-06-23] MEDS: VANCOMYCIN 125 MG/2.5 ML ORAL SOLUTION. PO SCH ×4 (08:36→20:45)
[2016-06-23] MEDS: HYDROXYCHLOROQUINE 200 MG TABLET PO SCH ×2 (08:36→20:44)
[2016-06-23] MEDS: ACETAMINOPHEN 500 MG TABLET PO SCH ×2 (08:37→20:44)
[2016-06-23] MEDS: CARVEDILOL 3.125 MG TABLET PO SCH ×2 (08:37→17:31)
[2016-06-23] MEDS: AMIODARONE HCL 200 MG TABLET. PO SCH (08:37)
[2016-06-23] MEDS: POTASSIUM CHLORIDE 20 MEQ TABLET.ER. PO SCH ×2 (08:38→17:30)
[2016-06-23] MEDS: LACTOBACILLUS ACIDOPH & BULGAR 1 TABLET. PO SCH ×3 (08:38→20:44)
[2016-06-23] MEDS: CHOLESTYRAMINE/ASPARTAME 4 GM PACKET PO SCH ×4 (08:39→20:43)
--- NOTE | 2016-06-23 08:51 | PDOC ---
EDHERNANDEZ SAND SHOVELER 06/23/16 0851: IM PROGRESS NOTES- Subjective Subjective continues with watery stools, no decrease in frequency. Still decreased oral intake, food goes right though him. Objective Objective alert, weak Vitals Vital Signs Date Time Temp Pulse Resp B/P Pulse Ox O2 Delivery O2 Flow Rate FiO2 06/23/16 08:37 77 130/76 06/23/16 07:00 98.6 20 97 Room Air 98.6 Input & Output Intake and Output 06/23/16 07:00 Intake Total 300 ml Balance 300 ml Intake Oral 300 ml # Voids 7 # Bowel Movements 4 Physical Exam Physical Exam General appearance - alert, chronically ill appearing, and in no distress Mental Status - alert, oriented to person, place, and time, affect appropriate to mood Head - normal Chest - clear to auscultation, no wheezes, rales or rhonchi, symmetric air entry Heart - S1 and S2 normal Abdomen - soft, nontender, nondistended, BS + Neurological - no acute focal neurological deficits Musculoskeletal - R hip Extremities - no pedal edema, wound vac R hip, R heel wound Skin - warm and dry Labs Laboratory Tests Test 06/21/16 10:20 06/21/16 12:20 06/21/16 16:17 06/21/16 20:50 Glucose (Fingerstick) 88mg/dL (70-99) 92mg/dL (70-99) 101mg/dL (70-99) Cortisol PM Sample 14.3ug/dL (2.3-11.9) Test 06/22/16 05:50 06/22/16 05:55 06/22/16 11:00 06/22/16 17:04 White Blood Count 8.2x10^3/uL (4.0-11.0) Red Blood Count 3.94x10^6/uL (4.30-5.70) Hemoglobin 12.6g/dL (13.0-17.5) Hematocrit 37.6% (39.0-53.0) Mean Corpuscular Volume 96fL (79-100) Mean Corpuscular Hemoglobin 32pg (25-35) Mean Corpuscular Hemoglobin Concent 33g/dL (31-37) Red Cell Distribution Width 13.5% (11.5-14.5) Platelet Count 261x10^3/uL (140-400) Neutrophils (%) (Auto) 68% (31-73) Lymphocytes (%) (Auto) 19% (24-48) Monocytes (%) (Auto) 11% (0-9) Eosinophils (%) (Auto) 2% (0-3) Basophils (%) (Auto) 0% (0-3) Neutrophils # (Auto) 5.6x10^3uL (1.8-7.7) Lymphocytes # (Auto) 1.6x10^3/uL (1.0-4.8) Monocytes # (Auto) 0.9x10^3/uL (0.0-1.1) Eosinophils # (Auto) 0.2x10^3/uL (0.0-0.7) Basophils # (Auto) 0.0x10^3/uL (0.0-0.2) Magnesium Level 1.9mg/dL (1.8-2.4) Sodium Level 140mmol/L (136-145) Potassium Level 4.7mmol/L (3.5-5.1) Chloride Level 106mmol/L (98-107) Carbon Dioxide Level 25mmol/L (21-32) Anion Gap 9 (6-14) Blood Urea Nitrogen 4mg/dL (8-26) Creatinine 0.8mg/dL (0.7-1.3) Estimated GFR (Cockcroft-Gault) 95.8 BUN/Creatinine Ratio 5 (6-20) Glucose Level 85mg/dL (70-99) Calcium Level 8.3mg/dL (8.5-10.1) Total Bilirubin 0.5mg/dL (0.2-1.0) Aspartate Amino Transf (AST/SGOT) 37U/L (15-37) Alanine Aminotransferase (ALT/SGPT) 38U/L (16-63) Alkaline Phosphatase 165U/L (46-116) Total Protein 5.4g/dL (6.4-8.2) Albumin 2.4g/dL (3.4-5.0) Albumin/Globulin Ratio 0.8 (1.0-1.7) Glucose (Fingerstick) 96mg/dL (70-99) 128mg/dL (70-99) Test 06/22/16 20:08 06/23/16 04:40 06/23/16 07:12 Glucose (Fingerstick) 121mg/dL (70-99) 150mg/dL (70-99) White Blood Count 8.9x10^3/uL (4.0-11.0) Red Blood Count 4.12x10^6/uL (4.30-5.70) Hemoglobin 13.1g/dL (13.0-17.5) Hematocrit 38.7% (39.0-53.0) Mean Corpuscular Volume 94fL (79-100) Mean Corpuscular Hemoglobin 32pg (25-35) Mean Corpuscular Hemoglobin Concent 34g/dL (31-37) Red Cell Distribution Width 13.5% (11.5-14.5) Platelet Count 279x10^3/uL (140-400) Neutrophils (%) (Auto) 75% (31-73) Lymphocytes (%) (Auto) 13% (24-48) Monocytes (%) (Auto) 10% (0-9) Eosinophils (%) (Auto) 2% (0-3) Basophils (%) (Auto) 0% (0-3) Neutrophils # (Auto) 6.6x10^3uL (1.8-7.7) Lymphocytes # (Auto) 1.1x10^3/uL (1.0-4.8) Monocytes # (Auto) 0.9x10^3/uL (0.0-1.1) Eosinophils # (Auto) 0.1x10^3/uL (0.0-0.7) Basophils # (Auto) 0.0x10^3/uL (0.0-0.2) Sodium Level 143mmol/L (136-145) Potassium Level 4.3mmol/L (3.5-5.1) Chloride Level 108mmol/L (98-107) Carbon Dioxide Level 25mmol/L (21-32) Anion Gap 10 (6-14) Blood Urea Nitrogen 12mg/dL (8-26) Creatinine 0.8mg/dL (0.7-1.3) Estimated GFR (Cockcroft-Gault) 95.8 BUN/Creatinine Ratio 15 (6-20) Glucose Level 138mg/dL (70-99) Calcium Level 8.4mg/dL (8.5-10.1) Magnesium Level 2.1mg/dL (1.8-2.4) Total Bilirubin 0.4mg/dL (0.2-1.0) Aspartate Amino Transf (AST/SGOT) 35U/L (15-37) Alanine Aminotransferase (ALT/SGPT) 39U/L (16-63) Alkaline Phosphatase 218U/L (46-116) Total Protein 5.5g/dL (6.4-8.2) Albumin 2.3g/dL (3.4-5.0) Albumin/Globulin Ratio 0.7 (1.0-1.7) Laboratory Tests Test 06/22/16 11:00 06/22/16 17:04 06/22/16 20:08 06/23/16 04:40 Glucose (Fingerstick) 96mg/dL (70-99) 128mg/dL (70-99) 121mg/dL (70-99) White Blood Count 8.9x10^3/uL (4.0-11.0) Red Blood Count 4.12x10^6/uL (4.30-5.70) Hemoglobin 13.1g/dL (13.0-17.5) Hematocrit 38.7% (39.0-53.0) Mean Corpuscular Volume 94fL (79-100) Mean Corpuscular Hemoglobin 32pg (25-35) Mean Corpuscular Hemoglobin Concent 34g/dL (31-37) Red Cell Distribution Width 13.5% (11.5-14.5) Platelet Count 279x10^3/uL (140-400) Neutrophils (%) (Auto) 75% (31-73) Lymphocytes (%) (Auto) 13% (24-48) Monocytes (%) (Auto) 10% (0-9) Eosinophils (%) (Auto) 2% (0-3) Basophils (%) (Auto) 0% (0-3) Neutrophils # (Auto) 6.6x10^3uL (1.8-7.7) Lymphocytes # (Auto) 1.1x10^3/uL (1.0-4.8) Monocytes # (Auto) 0.9x10^3/uL (0.0-1.1) Eosinophils # (Auto) 0.1x10^3/uL (0.0-0.7) Basophils # (Auto) 0.0x10^3/uL (0.0-0.2) Sodium Level 143mmol/L (136-145) Potassium Level 4.3mmol/L (3.5-5.1) Chloride Level 108mmol/L (98-107) Carbon Dioxide Level 25mmol/L (21-32) Anion Gap 10 (6-14) Blood Urea Nitrogen 12mg/dL (8-26) Creatinine 0.8mg/dL (0.7-1.3) Estimated GFR (Cockcroft-Gault) 95.8 BUN/Creatinine Ratio 15 (6-20) Glucose Level 138mg/dL (70-99) Calcium Level 8.4mg/dL (8.5-10.1) Magnesium Level 2.1mg/dL (1.8-2.4) Total Bilirubin 0.4mg/dL (0.2-1.0) Aspartate Amino Transf (AST/SGOT) 35U/L (15-37) Alanine Aminotransferase (ALT/SGPT) 39U/L (16-63) Alkaline Phosphatase 218U/L (46-116) Total Protein 5.5g/dL (6.4-8.2) Albumin 2.3g/dL (3.4-5.0) Albumin/Globulin Ratio 0.7 (1.0-1.7) Test 06/23/16 07:12 Glucose (Fingerstick) 150mg/dL (70-99) Meds Current Medications Acetaminophen (Tylenol) 1,000 mg BID PO Last administered on 06/23/16 08:37; Start 06/22/16 at 11:00 Amino Acids/ Electrolytes (Clinimix E 2.75%-5% Solution) 2,000 ml @ 80 mls/hr Q24H IV Last administered on 06/22/16 11:24; Start 06/22/16 at 11:00 Amiodarone HCl (Cordarone) 200 mg DAILY PO Last administered on 06/23/16 08:37 ; Start 06/23/16 at 09:00 Cholestyramine Resin (Questran Light) 4 gm QID PO Last administered on 08:39; Start 06/22/16 at 17:00 Fluconazole/ Sodium Chloride (Diflucan 400mg/ 200ml Premix) 200 ml @ 100 mls/ hr Q24H IV ; Start 06/22/16 at 11:00; Stop 06/22/16 at 11:00; Status DC Lactobacillus Acidophilus (Bacid, Cesilia-Bid) 1 tab TID PO Last administered on 08:38; Start 06/22/16 at 14:00 Lactobacillus Acidophilus 1 tab 1 tab DAILY PO ; Start 06/23/16 at 09:00; Stop 06/23/16 at 09:00; Status DC Oxycodone HCl 10 mg 10 mg PRN Q4HRS PRN PO PAIN Last administered on 06/22/16 17:22; Start 06/22/16 at 09:30 Vancomycin HCl 125 mg [id number] PO Last administered on 06/23/16 08:36; Start at 13:00 Assessment Assessment 1.acute diarrhea with severe weakness +yeast gram stain 2. R hip wound with wound vac POA 3. R hip pain chronic 4. CHF EF 35-40% per ECHO stable at admission, not acute 5. DM II with neuropathy insulin controlled, 6. hyperlipidemia 7. anemia chronic B12 deficiency 8. CAD with h/o [place], CABG x4 9. Rheumatoid arthritis 10. 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 diverticulosis 12. severe depression single episode mildly active 13 CKD II 14. severe weakness and debility 15. severe PCL malnutrition with trace ketonuria 16. seborrheic dermatitis 17. OA R hip severe 18. 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 Polyarthralgia. 20. Primary polyarticular osteoarthritis. 21 DMARD monitoring. 22. Chronic nonsteroidal antiinflammatory drug use. 23. R hip decubitus ulcer stage III s/p debridement 04/14/16 PLAN: diarrhea stool work up pending C diff negative 06/20 Immodium prn after stool studies obtained stool studies pending currently Flagyl 500 IV [id number] 06/22, diarrhea worse -GI consult Gram stain stool-yeast, final culture pending. Flagyl stopped, not improved-vomited with meal evening 06/21 Begin diflucan 400mg daily IV-add tele monitoring-DC 06/22 property custodian consult-supplements low carb continue immodium for now Lactobacillus 1 tablet daily with meals 06/23 GI- Cortisol level-14.3 --chronic steroids (prednisone 5mg daily) Begin cholestyramine QID wound R hip/R foot continue wound vac R hip wound care R heel wound care consult ordered wound vac R foot to be placed severe PCL malnutrition supplement begin PPN 06/22 property custodian consult-supplements low carb check weight today CKD II Admit Na 145 06/23 143 K 3.9 4.3 BUN 20 12 Cr 1.0 0.8 Mg 2.1 replace K with 20 meq today IVF with 40 K 50cc/hr 06/20-DC 06/22 Mg SO4 2 gm IV today 06/21 DM II FSBS/ssi BS 121-150 severe weakness and debility PT OT DVT/GI prophylaxis lovenox PPI acute on chronic pain Fentanyl not helping pain, oral pain med helps more Will begin Tylenol 1gm bid Change to oxycodone 10mg q 4 hour prn. DC Fentanyl. For more details regarding further plans, please refer to the orders. Plan Plan For more details regarding further plans, please refer to the orders. 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 The patient was seen and examined by me. Chart reviewed and plan of care formulated. Discussed with, reviewed and agree with [facility] [place]'s notes, plan of care and orders with modifications as necessary. For more details regarding further plans, please refer to the orders. HERNANDEZ WARD APRN Jun 23, 2016 08:51 FEROZ ESPOSITO MD Jun 23, 2016 10:01
[2016-06-23] MEDS ORDERED: LACTOBACILLUS ACIDOPH & BULGAR 1 TABLET. PO SCH (09:00)
[2016-06-23] MEDS: PREDNISONE 5 MG TABLET PO SCH (09:12)
[2016-06-23 11:03] VITALS: BP 106/64
[2016-06-23] MEDS: ENOXAPARIN 40 MG/0.4 ML DISP.SYRIN. SQ SCH (13:37)
--- NOTE | 2016-06-23 14:23 | PDOC ---
Subjective: Subjective: Says ongoing diarrhea though no stools today. 3-4 overnight. Food "goes right through him." Objective: Vital Signs: Vital Signs Date Time Temp Pulse Resp B/P Pulse Ox O2 Delivery O2 Flow Rate FiO2 06/23/16 11:03 98.5 79 19 106/64 97 Room Air 98.5 06/23/16 08:00 2.0 Labs: Laboratory Tests Test 06/22/16 17:04 06/22/16 20:08 06/23/16 04:40 06/23/16 07:12 Glucose (Fingerstick) 128mg/dL 121mg/dL 150mg/dL White Blood Count 8.9x10^3/uL Red Blood Count 4.12x10^6/uL Hemoglobin 13.1g/dL Hematocrit 38.7% Mean Corpuscular Volume 94fL Mean Corpuscular Hemoglobin 32pg Mean Corpuscular Hemoglobin Concent 34g/dL Red Cell Distribution Width 13.5% Platelet Count 279x10^3/uL Neutrophils (%) (Auto) 75% Lymphocytes (%) (Auto) 13% Monocytes (%) (Auto) 10% Eosinophils (%) (Auto) 2% Basophils (%) (Auto) 0% Neutrophils # (Auto) 6.6x10^3uL Lymphocytes # (Auto) 1.1x10^3/uL Monocytes # (Auto) 0.9x10^3/uL Eosinophils # (Auto) 0.1x10^3/uL Basophils # (Auto) 0.0x10^3/uL Sodium Level 143mmol/L Potassium Level 4.3mmol/L Chloride Level 108mmol/L Carbon Dioxide Level 25mmol/L Anion Gap 10 Blood Urea Nitrogen 12mg/dL Creatinine 0.8mg/dL Estimated GFR (Cockcroft-Gault) 95.8 BUN/Creatinine Ratio 15 Glucose Level 138mg/dL Calcium Level 8.4mg/dL Magnesium Level 2.1mg/dL Total Bilirubin 0.4mg/dL Aspartate Amino Transf (AST/SGOT) 35U/L Alanine Aminotransferase (ALT/SGPT) 39U/L Alkaline Phosphatase 218U/L Total Protein 5.5g/dL Albumin 2.3g/dL Albumin/Globulin Ratio 0.7 Test 06/23/16 10:49 Glucose (Fingerstick) 122mg/dL PE: GEN: NAD LUNGS: CTAB HEART: RRR ABD: BS+, S/ND/NT NEURO/PSYCH: A & O 3 A/P: Diarrhea, likely atbx related -C Diff neg, stool cx w/ yeast -on vanco started yesterday, also has cholestyramine and probiotics -eating a little, on PPN -- Ongoing diarrhea. Will review w/ Dr. Guzman. GRICELDA PATRICIO Jun 23, 2016 14:23
[2016-06-23 14:35] VITALS: BP 105/63
[2016-06-23 19:00] VITALS: BP 121/67
[2016-06-23] MEDS: ATORVASTATIN CALCIUM 40 MG TABLET. PO SCH (20:44)
[2016-06-23] MEDS: OXYCODONE IR 5 MG TABLET. PO PRN (20:44)
[2016-06-23] MEDS: AA 2.75%/CALCIUM/LYTES/D5W 2,000 ML IV SCH (22:08)
[2016-06-23 23:00] VITALS: BP 118/62
[2016-06-24 05:08] LABS: BASO % 0 % (0-3); EOS % 4 % (0-3); HEMATOCRIT 38.7 % (39.0-53.0); LYMPH # 1.5 x10^3/uL (1.0-4.8); LYMPH % 20 % (24-48); MEAN CORPUSCULAR HEMOGLOBIN 32 pg (25-35); MEAN CORPUSCULAR HGB CONC 34 g/dL (31-37); MEAN CORPUSCULAR VOLUME 94 fL (79-100); MONO % 12 % (0-9); NEUT % 65 % (31-73); PLATELET COUNT 287 x10^3/uL (140-400); RED BLOOD COUNT 4.11 x10^6/uL (4.30-5.70); RED CELL DISTRIBUTION WIDTH 13.4 % (11.5-14.5); WHITE BLOOD COUNT 7.5 x10^3/uL (4.0-11.0)
[2016-06-24 05:55] LABS: ALBUMIN 2.4 g/dL (3.4-5.0); ALBUMIN/GLOBULIN RATIO 0.7 (1.0-1.7); CALCIUM 8.6 mg/dL (8.5-10.1); CREATININE 0.8 mg/dL (0.7-1.3); GFR 95.8; TOTAL BILIRUBIN 0.4 mg/dL (0.2-1.0); TOTAL PROTEIN 5.7 g/dL (6.4-8.2)
[2016-06-24] MEDS: LEVOTHYROXINE 88 MCG TABLET PO SCH (05:59)
[2016-06-24 07:30] VITALS: BP 128/61
[2016-06-24] MEDS: LACTOBACILLUS ACIDOPH & BULGAR 1 TABLET. PO SCH ×3 (08:20→21:00)
[2016-06-24] MEDS: ACETAMINOPHEN 500 MG TABLET PO SCH ×2 (08:20→21:00)
[2016-06-24] MEDS: HYDROXYCHLOROQUINE 200 MG TABLET PO SCH ×2 (08:20→21:00)
[2016-06-24] MEDS: AMIODARONE HCL 200 MG TABLET. PO SCH (08:21)
[2016-06-24] MEDS: CARVEDILOL 3.125 MG TABLET PO SCH ×2 (08:21→17:11)
[2016-06-24] MEDS: POTASSIUM CHLORIDE 20 MEQ TABLET.ER. PO SCH ×2 (08:21→17:08)
[2016-06-24] MEDS: PANTOPRAZOLE 40 MG TABLET. PO SCH (08:21)
[2016-06-24] MEDS: CHOLESTYRAMINE/ASPARTAME 4 GM PACKET PO SCH ×4 (08:21→21:00)
[2016-06-24] MEDS: PREDNISONE 5 MG TABLET PO SCH (08:21)
[2016-06-24] MEDS: CLOPIDOGREL BISULFATE 75 MG TABLET PO SCH (08:22)
[2016-06-24] MEDS: VANCOMYCIN 125 MG/2.5 ML ORAL SOLUTION. PO SCH ×4 (08:22→21:00)
--- NOTE | 2016-06-24 08:26 | PDOC ---
EDHERNANDEZ HR ADVISOR 06/24/16 0826: IM PROGRESS NOTES- Subjective Subjective diarrhea some improvement in consistency, still with unformed stools Objective Objective alert, weak Vitals Vital Signs Date Time Temp Pulse Resp B/P Pulse Ox O2 Delivery O2 Flow Rate FiO2 06/24/16 08:21 69 128/61 06/23/16 23:00 97.9 20 98 Room Air 97.9 06/23/16 08:00 2.0 Input & Output Intake and Output 06/24/16 07:00 Intake Total 970 ml Output Total 200 ml Balance 770 ml Intake Oral 970 ml Output Urine Total 200 ml # Voids 2 # Bowel Movements 1 Physical Exam Physical Exam General appearance - alert, chronically ill appearing, and in no distress Mental Status - alert, oriented to person, place, and time, affect appropriate to mood Head - normal Chest - clear to auscultation, no wheezes, rales or rhonchi, symmetric air entry Heart - S1 and S2 normal Abdomen - soft, nontender, nondistended, BS + Neurological - no acute focal neurological deficits Musculoskeletal - R hip Extremities - no pedal edema, wound vac R hip, R heel wound Skin - warm and dry Labs Laboratory Tests Test 06/22/16 11:00 06/22/16 17:04 06/22/16 20:08 06/23/16 04:40 Glucose (Fingerstick) 96mg/dL (70-99) 128mg/dL (70-99) 121mg/dL (70-99) White Blood Count 8.9x10^3/uL (4.0-11.0) Red Blood Count 4.12x10^6/uL (4.30-5.70) Hemoglobin 13.1g/dL (13.0-17.5) Hematocrit 38.7% (39.0-53.0) Mean Corpuscular Volume 94fL (79-100) Mean Corpuscular Hemoglobin 32pg (25-35) Mean Corpuscular Hemoglobin Concent 34g/dL (31-37) Red Cell Distribution Width 13.5% (11.5-14.5) Platelet Count 279x10^3/uL (140-400) Neutrophils (%) (Auto) 75% (31-73) Lymphocytes (%) (Auto) 13% (24-48) Monocytes (%) (Auto) 10% (0-9) Eosinophils (%) (Auto) 2% (0-3) Basophils (%) (Auto) 0% (0-3) Neutrophils # (Auto) 6.6x10^3uL (1.8-7.7) Lymphocytes # (Auto) 1.1x10^3/uL (1.0-4.8) Monocytes # (Auto) 0.9x10^3/uL (0.0-1.1) Eosinophils # (Auto) 0.1x10^3/uL (0.0-0.7) Basophils # (Auto) 0.0x10^3/uL (0.0-0.2) Sodium Level 143mmol/L (136-145) Potassium Level 4.3mmol/L (3.5-5.1) Chloride Level 108mmol/L (98-107) Carbon Dioxide Level 25mmol/L (21-32) Anion Gap 10 (6-14) Blood Urea Nitrogen 12mg/dL (8-26) Creatinine 0.8mg/dL (0.7-1.3) Estimated GFR (Cockcroft-Gault) 95.8 BUN/Creatinine Ratio 15 (6-20) Glucose Level 138mg/dL (70-99) Calcium Level 8.4mg/dL (8.5-10.1) Magnesium Level 2.1mg/dL (1.8-2.4) Total Bilirubin 0.4mg/dL (0.2-1.0) Aspartate Amino Transf (AST/SGOT) 35U/L (15-37) Alanine Aminotransferase (ALT/SGPT) 39U/L (16-63) Alkaline Phosphatase 218U/L (46-116) Total Protein 5.5g/dL (6.4-8.2) Albumin 2.3g/dL (3.4-5.0) Albumin/Globulin Ratio 0.7 (1.0-1.7) Test 06/23/16 07:12 06/23/16 10:49 06/23/16 14:32 06/23/16 17:15 Glucose (Fingerstick) 150mg/dL (70-99) 122mg/dL (70-99) 125mg/dL (70-99) 130mg/dL (70-99) Test 06/23/16 21:13 06/24/16 04:45 06/24/16 04:55 Glucose (Fingerstick) 104mg/dL (70-99) Magnesium Level 2.0mg/dL (1.8-2.4) White Blood Count 7.5x10^3/uL (4.0-11.0) Red Blood Count 4.11x10^6/uL (4.30-5.70) Hemoglobin 13.0g/dL (13.0-17.5) Hematocrit 38.7% (39.0-53.0) Mean Corpuscular Volume 94fL (79-100) Mean Corpuscular Hemoglobin 32pg (25-35) Mean Corpuscular Hemoglobin Concent 34g/dL (31-37) Red Cell Distribution Width 13.4% (11.5-14.5) Platelet Count 287x10^3/uL (140-400) Neutrophils (%) (Auto) 65% (31-73) Lymphocytes (%) (Auto) 20% (24-48) Monocytes (%) (Auto) 12% (0-9) Eosinophils (%) (Auto) 4% (0-3) Basophils (%) (Auto) 0% (0-3) Neutrophils # (Auto) 4.9x10^3uL (1.8-7.7) Lymphocytes # (Auto) 1.5x10^3/uL (1.0-4.8) Monocytes # (Auto) 0.9x10^3/uL (0.0-1.1) Eosinophils # (Auto) 0.3x10^3/uL (0.0-0.7) Basophils # (Auto) 0.0x10^3/uL (0.0-0.2) Sodium Level 139mmol/L (136-145) Potassium Level 5.0mmol/L (3.5-5.1) Chloride Level 104mmol/L (98-107) Carbon Dioxide Level 26mmol/L (21-32) Anion Gap 9 (6-14) Blood Urea Nitrogen 10mg/dL (8-26) Creatinine 0.8mg/dL (0.7-1.3) Estimated GFR (Cockcroft-Gault) 95.8 BUN/Creatinine Ratio 13 (6-20) Glucose Level 115mg/dL (70-99) Calcium Level 8.6mg/dL (8.5-10.1) Total Bilirubin 0.4mg/dL (0.2-1.0) Aspartate Amino Transf (AST/SGOT) 36U/L (15-37) Alanine Aminotransferase (ALT/SGPT) 39U/L (16-63) Alkaline Phosphatase 239U/L (46-116) Total Protein 5.7g/dL (6.4-8.2) Albumin 2.4g/dL (3.4-5.0) Albumin/Globulin Ratio 0.7 (1.0-1.7) Laboratory Tests Test 06/23/16 10:49 06/23/16 14:32 06/23/16 17:15 06/23/16 21:13 Glucose (Fingerstick) 122mg/dL (70-99) 125mg/dL (70-99) 130mg/dL (70-99) 104mg/dL (70-99) Test 06/24/16 04:45 06/24/16 04:55 Magnesium Level 2.0mg/dL (1.8-2.4) White Blood Count 7.5x10^3/uL (4.0-11.0) Red Blood Count 4.11x10^6/uL (4.30-5.70) Hemoglobin 13.0g/dL (13.0-17.5) Hematocrit 38.7% (39.0-53.0) Mean Corpuscular Volume 94fL (79-100) Mean Corpuscular Hemoglobin 32pg (25-35) Mean Corpuscular Hemoglobin Concent 34g/dL (31-37) Red Cell Distribution Width 13.4% (11.5-14.5) Platelet Count 287x10^3/uL (140-400) Neutrophils (%) (Auto) 65% (31-73) Lymphocytes (%) (Auto) 20% (24-48) Monocytes (%) (Auto) 12% (0-9) Eosinophils (%) (Auto) 4% (0-3) Basophils (%) (Auto) 0% (0-3) Neutrophils # (Auto) 4.9x10^3uL (1.8-7.7) Lymphocytes # (Auto) 1.5x10^3/uL (1.0-4.8) Monocytes # (Auto) 0.9x10^3/uL (0.0-1.1) Eosinophils # (Auto) 0.3x10^3/uL (0.0-0.7) Basophils # (Auto) 0.0x10^3/uL (0.0-0.2) Sodium Level 139mmol/L (136-145) Potassium Level 5.0mmol/L (3.5-5.1) Chloride Level 104mmol/L (98-107) Carbon Dioxide Level 26mmol/L (21-32) Anion Gap 9 (6-14) Blood Urea Nitrogen 10mg/dL (8-26) Creatinine 0.8mg/dL (0.7-1.3) Estimated GFR (Cockcroft-Gault) 95.8 BUN/Creatinine Ratio 13 (6-20) Glucose Level 115mg/dL (70-99) Calcium Level 8.6mg/dL (8.5-10.1) Total Bilirubin 0.4mg/dL (0.2-1.0) Aspartate Amino Transf (AST/SGOT) 36U/L (15-37) Alanine Aminotransferase (ALT/SGPT) 39U/L (16-63) Alkaline Phosphatase 239U/L (46-116) Total Protein 5.7g/dL (6.4-8.2) Albumin 2.4g/dL (3.4-5.0) Albumin/Globulin Ratio 0.7 (1.0-1.7) Meds Current Medications Amiodarone HCl (Cordarone) 200 mg DAILY PO Last administered on 06/24/16t 08:21 ; Start 06/23/16 at 09:00 Lactobacillus Acidophilus (Bacid, Cesilia-Bid) 1 tab DAILY PO ; Start 06/23/16 at 09:00; Stop 06/23/16 at 09:00; Status DC Assessment Assessment Assessment 1.acute diarrhea with severe weakness +yeast gram stain 2. R hip wound with wound vac POA 3. R hip pain chronic 4. CHF EF 35-40% per ECHO stable at admission, not acute 5. DM II with neuropathy insulin controlled, 6. hyperlipidemia 7. anemia chronic B12 deficiency 8. CAD with h/o [place], CABG x4 9. Rheumatoid arthritis 10. 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 diverticulosis 12. severe depression single episode mildly active 13 CKD II 14. severe weakness and debility 15. severe PCL malnutrition with trace ketonuria 16. seborrheic dermatitis 17. OA R hip severe 18. 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 Polyarthralgia. 20. Primary polyarticular osteoarthritis. 21 DMARD monitoring. 22. Chronic nonsteroidal antiinflammatory drug use. 23. R hip decubitus ulcer stage III s/p debridement 04/14/16 PLAN: diarrhea stool work up pending C diff negative 06/20 Immodium prn after stool studies obtained stool studies pending currently Flagyl 500 IV [id number] 06/22, diarrhea worse -GI consult Gram stain stool-yeast, final culture pending. Flagyl stopped, not improved-vomited with meal evening 06/21 Begin diflucan 400mg daily IV-add tele monitoring-DC 06/22 manager application consult-supplements low carb continue immodium for now Lactobacillus 1 tablet daily with meals 06/23 GI- Cortisol level-14.3 --chronic steroids (prednisone 5mg daily) Begin cholestyramine QID wound R hip/R foot continue wound vac R hip wound care R heel wound care consult ordered wound vac R foot to be placed severe PCL malnutrition supplement begin PPN 06/22 manager application consult-supplements low carb check weight today CKD II Admit Na 145 06/24 139 K 3.9 5.0 BUN 20 10 Cr 1.0 0.8 Mg 2.1 replace K with 20 meq today IVF with 40 K 50cc/hr 06/20-DC 06/22 Mg SO4 2 gm IV today 06/21 DM II FSBS/ssi BS 104/130 severe weakness and debility PT OT DVT/GI prophylaxis lovenox PPI acute on chronic pain Fentanyl not helping pain, oral pain med helps more Will begin Tylenol 1gm bid Change to oxycodone 10mg q 4 hour prn. DC Fentanyl. NSVT Mg K therapeutic Cardiology consult For more details regarding further plans, please refer to the orders. Plan Plan For more details regarding further plans, please refer to the orders. Nutrition Consultation Dietary Evaluation: Recommendations by RD: Add supplement feedings Comments: rec mvi q day and vit c 500 mg bid to aid with wound healing Expected Outcomes/Goals: to meet > 75% est nutr needs Interpretation of weight loss: >10% in 6 months Malnutrition Findings: Food and Nutrition Intake (Mod: <75% est energy req 7days Reduced Computer Forensics Examiner Strength: N/A Weight Status: Appropriate Fluid Accumulation (N/A): N/A FEROZ ESPOSITO MD 06/24/16 0953: IM PROGRESS NOTES- Assessment Assessment The patient was seen and examined by me. Chart reviewed and plan of care formulated. Discussed with, reviewed and agree with MEDICAL BILLING CLERK's notes, plan of care and orders with modifications as necessary. For more details regarding further plans, please refer to the orders. TSH elevated. Has acute on chronic illness.will monitor.No new RX necessary at this time. HERNANDEZ WARD APRN Jun 24, 2016 08:26 FEROZ ESPOSITO MD Jun 24, 2016 09:53
--- NOTE | 2016-06-24 09:22 | EKG ---
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
--- NOTE | 2016-06-24 09:56 | PDOC ---
JENSANGELICA Fred STRETCHING PRESS OPERATOR 06/24/16 0956: CARDIO Progress Notes Date and Time Date of Service 06/24/2016 Time of Evaluation 0953 Subjective Subjective: No Chest Pain, No shortness of breath, No Palpitations, No Dizziness Comments: consulted for VT Vitals Vitals Vital Signs Date Time Temp Pulse Resp B/P Pulse Ox O2 Delivery O2 Flow Rate FiO2 06/24/16 08:21 69 128/61 06/24/16 07:30 98.0 98.0 06/23/16 23:00 20 98 Room Air 06/23/16 08:00 2.0 Weight Weight [ ] Input and Output Intake and Output Intake and Output 06/24/16 07:00 Intake Total 970 ml Output Total 200 ml Balance 770 ml Intake Oral 970 ml Output Urine Total 200 ml # Voids 2 # Bowel Movements 1 Laboratory Labs Laboratory Tests Test 06/23/16 10:49 06/23/16 14:32 06/23/16 17:15 06/23/16 21:13 Glucose (Fingerstick) 122mg/dL (70-99) 125mg/dL (70-99) 130mg/dL (70-99) 104mg/dL (70-99) Test 06/24/16 04:45 06/24/16 04:55 06/24/16 08:02 Magnesium Level 2.0mg/dL (1.8-2.4) Thyroid Stimulating Hormone (TSH) 10.853uIU/mL (0.358-3.74) White Blood Count 7.5x10^3/uL (4.0-11.0) Red Blood Count 4.11x10^6/uL (4.30-5.70) Hemoglobin 13.0g/dL (13.0-17.5) Hematocrit 38.7% (39.0-53.0) Mean Corpuscular Volume 94fL (79-100) Mean Corpuscular Hemoglobin 32pg (25-35) Mean Corpuscular Hemoglobin Concent 34g/dL (31-37) Red Cell Distribution Width 13.4% (11.5-14.5) Platelet Count 287x10^3/uL (140-400) Neutrophils (%) (Auto) 65% (31-73) Lymphocytes (%) (Auto) 20% (24-48) Monocytes (%) (Auto) 12% (0-9) Eosinophils (%) (Auto) 4% (0-3) Basophils (%) (Auto) 0% (0-3) Neutrophils # (Auto) 4.9x10^3uL (1.8-7.7) Lymphocytes # (Auto) 1.5x10^3/uL (1.0-4.8) Monocytes # (Auto) 0.9x10^3/uL (0.0-1.1) Eosinophils # (Auto) 0.3x10^3/uL (0.0-0.7) Basophils # (Auto) 0.0x10^3/uL (0.0-0.2) Sodium Level 139mmol/L (136-145) Potassium Level 5.0mmol/L (3.5-5.1) Chloride Level 104mmol/L (98-107) Carbon Dioxide Level 26mmol/L (21-32) Anion Gap 9 (6-14) Blood Urea Nitrogen 10mg/dL (8-26) Creatinine 0.8mg/dL (0.7-1.3) Estimated GFR (Cockcroft-Gault) 95.8 BUN/Creatinine Ratio 13 (6-20) Glucose Level 115mg/dL (70-99) Calcium Level 8.6mg/dL (8.5-10.1) Total Bilirubin 0.4mg/dL (0.2-1.0) Aspartate Amino Transf (AST/SGOT) 36U/L (15-37) Alanine Aminotransferase (ALT/SGPT) 39U/L (16-63) Alkaline Phosphatase 239U/L (46-116) Total Protein 5.7g/dL (6.4-8.2) Albumin 2.4g/dL (3.4-5.0) Albumin/Globulin Ratio 0.7 (1.0-1.7) Glucose (Fingerstick) 123mg/dL (70-99) Microbiology Micro Microbiology 06/20/16 Stool Culture - Final, Resulted 06/20/16 Stool Culture Result 1 (HAIDER) - Final, Resulted 06/20/16 Campylobacter Antigen Assay - Preliminary, Resulted 06/20/16 Campylobactor Result 1 - Preliminary, Resulted 06/20/16 Shiga Toxin Test - Final, Resulted 06/18/16 Urine Culture - Final, Complete 06/18/16 Urine Culture Result 1 (HAIDER) - Final, Complete Review of Systems Constitutional: yes: no symptom reported Ears/Nose/Throat: Yes: no symptom reported Eyes: Yes: no symptom reported Cardiovascular: Yes no symptom reported Gastrointestional: Yes: diarrhea, vomiting Genitourinary: Yes: no symptom reported Musculoskeletal: Yes: no symptom reported Skin: Yes no symptom reported Psychiatric/Neurological: Yes: no symptom reported Endocrine: Yes: no symptom reported Hematologic/Lymphatic: Yes: no symptom reported Physical Exam HEENT: Neck Supple W Full Motion Chest: Symmetric LUNGS: Clear to Auscultation Heart: S1S2, RRR Abdomen: Soft N/T Extremities: No Edema (in RLE), Other (Left BKA; wound vac on right foot) Neurology: alert, oriented, follow commands Assessment Assessment CONTINUATION OF CARE NOTE - SEE PREVIOUS ADMISSION FOR CONSULT DATE 06/16/2016 1. NSVT narrow complex tachycardia not consistent with VT unable to review full disclosure strip in V lead appears to have p wave prior to QRS - likely atrial dysrhythmia patient awake when rhythm happened and was asymptomatic K and Mg WNL TSH > 10 - ? related to known hypothyroidism or amiodarone therapy - defer TSH evaluate to primary provider continue beta-blockers and anti-arrhythmic; can not uptitrate BB due to BP continue to monitor 2. CAD with previous CABG no anginal symptoms continue secondary prevention 3. ischemic CMP LVEF depressed @ 35-40% on echo 03/2016 no evidence of acute CHF continue medical management 4. HLD continue statin therapy 5. DM, II with DPN per primary service 6. failure to thrive KIMBERLY SHEPHERD MD 06/24/16 6114: CARDIO Progress Notes Plan Plan Patient seen and examined. Agree with above nurse practitioner note. Unfortunately patient has been readmitted quite rapidly after recent discharge. Denies any chest pain. No other arrhythmias noted at this time. Normal cardiac exam. No significant lower extremity edema. Right hip nonhealing stage IV decubitus ulcer. Currently continue supportive care from a cardiac standpoint. Given his history and elevated TSH if necessary could always consider stopping his amiodarone but will await further evaluation of his TSH and treatment. ANGELICA COLINDRES APRN Jun 24, 2016 09:56 KIMBERLY SHEPHERD MD Jun 24, 2016 18:58
[2016-06-24 11:30] VITALS: BP 121/59
--- NOTE | 2016-06-24 12:59 | PDOC ---
Subjective: Subjective: Diarrhea is "good." Less frequent. Tolerating more PO. Objective: Vital Signs: Vital Signs Date Time Temp Pulse Resp B/P Pulse Ox O2 Delivery O2 Flow Rate FiO2 06/24/16 11:30 98.3 76 20 121/59 97 Room Air 98.3 06/23/16 08:00 2.0 Labs: Laboratory Tests Test 06/23/16 14:32 06/23/16 17:15 06/23/16 21:13 06/24/16 08:02 Glucose (Fingerstick) 125mg/dL (70-99) 130mg/dL (70-99) 104mg/dL (70-99) 123mg/dL (70-99) Test 06/24/16 11:34 Glucose (Fingerstick) 117mg/dL (70-99) PE: GEN: NAD LUNGS: CTAB HEART: RRR ABD: NABS, S/ND/NT NEURO/PSYCH: A & O 3 A/P: Diarrhea, likely atbx related - improving -C Diff neg, stool cx w/ yeast -on vanco, cholestyramine, and probiotics -appetite improving -- Getting better. Continue same per GI. GRICELDA PATRICIO Jun 24, 2016 12:59
[2016-06-24] MEDS: ENOXAPARIN 40 MG/0.4 ML DISP.SYRIN. SQ SCH (13:43)
[2016-06-24 15:52] VITALS: BP 114/63
[2016-06-24] MEDS: OXYCODONE IR 5 MG TABLET. PO PRN (17:07)
[2016-06-24] MEDS: ONDANSETRON PF 4 MG/2 ML VIAL. IV PRN (17:16)
[2016-06-24 19:00] VITALS: BP 114/64
[2016-06-24] MEDS: ATORVASTATIN CALCIUM 40 MG TABLET. PO SCH (21:00)
[2016-06-24] MEDS: AA 2.75%/CALCIUM/LYTES/D5W 2,000 ML IV SCH (22:45)
[2016-06-24 23:37] VITALS: BP 106/60
[2016-06-25 03:49] VITALS: BP 110/61
[2016-06-25 05:49] LABS: BASO % 0 % (0-3); EOS % 2 % (0-3); HEMATOCRIT 39.4 % (39.0-53.0); HEMOGLOBIN 13.3 g/dL (13.0-17.5); LYMPH # 1.2 x10^3/uL (1.0-4.8); LYMPH % 14 % (24-48); MEAN CORPUSCULAR HEMOGLOBIN 32 pg (25-35); MEAN CORPUSCULAR HGB CONC 34 g/dL (31-37); MEAN CORPUSCULAR VOLUME 94 fL (79-100); MONO % 10 % (0-9); NEUT % 74 % (31-73); PLATELET COUNT 304 x10^3/uL (140-400); RED BLOOD COUNT 4.19 x10^6/uL (4.30-5.70); WHITE BLOOD COUNT 8.4 x10^3/uL (4.0-11.0)
[2016-06-25 05:55] LABS: CALCIUM 8.7 mg/dL (8.5-10.1); CREATININE 0.7 mg/dL (0.7-1.3); GFR 111.8; POTASSIUM 4.7 mmol/L (3.5-5.1)
--- NOTE | 2016-06-25 06:43 | PDOC ---
EDHERNANDEZ TR[employer]IVING 06/25/16 0643: IM PROGRESS NOTES- Subjective Subjective diarrhea some improvement in consistency, still with unformed stools Objective Objective alert, weak Vitals Vital Signs Date Time Temp Pulse Resp B/P Pulse Ox O2 Delivery O2 Flow Rate FiO2 06/25/16 03:49 96.4 72 18 110/61 96 Room Air 96.4 Input & Output Intake and Output 06/25/16 07:00 Intake Total 620 ml Output Total 1020 ml Balance -400 ml Intake Oral 620 ml Output Urine Total 1020 ml # Voids 3 # Bowel Movements 3 Physical Exam Physical Exam General appearance - alert, chronically ill appearing, and in no distress Mental Status - alert, oriented to person, place, and time, affect appropriate to mood Head - normal Chest - clear to auscultation, no wheezes, rales or rhonchi, symmetric air entry Heart - S1 and S2 normal Abdomen - soft, nontender, nondistended, BS + Neurological - no acute focal neurological deficits Musculoskeletal - R hip Extremities - no pedal edema, wound vac R hip, R heel wound Skin - warm and dry Labs Laboratory Tests Test 06/23/16 07:12 06/23/16 10:49 06/23/16 14:32 06/23/16 17:15 Glucose (Fingerstick) 150mg/dL (70-99) 122mg/dL (70-99) 125mg/dL (70-99) 130mg/dL (70-99) Test 06/23/16 21:13 06/24/16 04:45 06/24/16 04:55 06/24/16 08:02 Glucose (Fingerstick) 104mg/dL (70-99) 123mg/dL (70-99) Magnesium Level 2.0mg/dL (1.8-2.4) Thyroid Stimulating Hormone (TSH) 10.853uIU/mL (0.358-3.74) White Blood Count 7.5x10^3/uL (4.0-11.0) Red Blood Count 4.11x10^6/uL (4.30-5.70) Hemoglobin 13.0g/dL (13.0-17.5) Hematocrit 38.7% (39.0-53.0) Mean Corpuscular Volume 94fL (79-100) Mean Corpuscular Hemoglobin 32pg (25-35) Mean Corpuscular Hemoglobin Concent 34g/dL (31-37) Red Cell Distribution Width 13.4% (11.5-14.5) Platelet Count 287x10^3/uL (140-400) Neutrophils (%) (Auto) 65% (31-73) Lymphocytes (%) (Auto) 20% (24-48) Monocytes (%) (Auto) 12% (0-9) Eosinophils (%) (Auto) 4% (0-3) Basophils (%) (Auto) 0% (0-3) Neutrophils # (Auto) 4.9x10^3uL (1.8-7.7) Lymphocytes # (Auto) 1.5x10^3/uL (1.0-4.8) Monocytes # (Auto) 0.9x10^3/uL (0.0-1.1) Eosinophils # (Auto) 0.3x10^3/uL (0.0-0.7) Basophils # (Auto) 0.0x10^3/uL (0.0-0.2) Sodium Level 139mmol/L (136-145) Potassium Level 5.0mmol/L (3.5-5.1) Chloride Level 104mmol/L (98-107) Carbon Dioxide Level 26mmol/L (21-32) Anion Gap 9 (6-14) Blood Urea Nitrogen 10mg/dL (8-26) Creatinine 0.8mg/dL (0.7-1.3) Estimated GFR (Cockcroft-Gault) 95.8 BUN/Creatinine Ratio 13 (6-20) Glucose Level 115mg/dL (70-99) Calcium Level 8.6mg/dL (8.5-10.1) Total Bilirubin 0.4mg/dL (0.2-1.0) Aspartate Amino Transf (AST/SGOT) 36U/L (15-37) Alanine Aminotransferase (ALT/SGPT) 39U/L (16-63) Alkaline Phosphatase 239U/L (46-116) Total Protein 5.7g/dL (6.4-8.2) Albumin 2.4g/dL (3.4-5.0) Albumin/Globulin Ratio 0.7 (1.0-1.7) Test 06/24/16 11:34 06/24/16 15:36 06/24/16 20:46 06/25/16 05:19 Glucose (Fingerstick) 117mg/dL (70-99) 133mg/dL (70-99) 129mg/dL (70-99) White Blood Count 8.4x10^3/uL (4.0-11.0) Red Blood Count 4.19x10^6/uL (4.30-5.70) Hemoglobin 13.3g/dL (13.0-17.5) Hematocrit 39.4% (39.0-53.0) Mean Corpuscular Volume 94fL (79-100) Mean Corpuscular Hemoglobin 32pg (25-35) Mean Corpuscular Hemoglobin Concent 34g/dL (31-37) Red Cell Distribution Width 13.0% (11.5-14.5) Platelet Count 304x10^3/uL (140-400) Neutrophils (%) (Auto) 74% (31-73) Lymphocytes (%) (Auto) 14% (24-48) Monocytes (%) (Auto) 10% (0-9) Eosinophils (%) (Auto) 2% (0-3) Basophils (%) (Auto) 0% (0-3) Neutrophils # (Auto) 6.2x10^3uL (1.8-7.7) Lymphocytes # (Auto) 1.2x10^3/uL (1.0-4.8) Monocytes # (Auto) 0.9x10^3/uL (0.0-1.1) Eosinophils # (Auto) 0.2x10^3/uL (0.0-0.7) Basophils # (Auto) 0.0x10^3/uL (0.0-0.2) Sodium Level 137mmol/L (136-145) Potassium Level 4.7mmol/L (3.5-5.1) Chloride Level 104mmol/L (98-107) Carbon Dioxide Level 23mmol/L (21-32) Anion Gap 10 (6-14) Blood Urea Nitrogen 11mg/dL (8-26) Creatinine 0.7mg/dL (0.7-1.3) Estimated GFR (Cockcroft-Gault) 111.8 Glucose Level 131mg/dL (70-99) Calcium Level 8.7mg/dL (8.5-10.1) Magnesium Level 1.9mg/dL (1.8-2.4) Laboratory Tests Test 06/24/16 08:02 06/24/16 11:34 06/24/16 15:36 06/24/16 20:46 Glucose (Fingerstick) 123mg/dL (70-99) 117mg/dL (70-99) 133mg/dL (70-99) 129mg/dL (70-99) Test 06/25/16 05:19 White Blood Count 8.4x10^3/uL (4.0-11.0) Red Blood Count 4.19x10^6/uL (4.30-5.70) Hemoglobin 13.3g/dL (13.0-17.5) Hematocrit 39.4% (39.0-53.0) Mean Corpuscular Volume 94fL (79-100) Mean Corpuscular Hemoglobin 32pg (25-35) Mean Corpuscular Hemoglobin Concent 34g/dL (31-37) Red Cell Distribution Width 13.0% (11.5-14.5) Platelet Count 304x10^3/uL (140-400) Neutrophils (%) (Auto) 74% (31-73) Lymphocytes (%) (Auto) 14% (24-48) Monocytes (%) (Auto) 10% (0-9) Eosinophils (%) (Auto) 2% (0-3) Basophils (%) (Auto) 0% (0-3) Neutrophils # (Auto) 6.2x10^3uL (1.8-7.7) Lymphocytes # (Auto) 1.2x10^3/uL (1.0-4.8) Monocytes # (Auto) 0.9x10^3/uL (0.0-1.1) Eosinophils # (Auto) 0.2x10^3/uL (0.0-0.7) Basophils # (Auto) 0.0x10^3/uL (0.0-0.2) Sodium Level 137mmol/L (136-145) Potassium Level 4.7mmol/L (3.5-5.1) Chloride Level 104mmol/L (98-107) Carbon Dioxide Level 23mmol/L (21-32) Anion Gap 10 (6-14) Blood Urea Nitrogen 11mg/dL (8-26) Creatinine 0.7mg/dL (0.7-1.3) Estimated GFR (Cockcroft-Gault) 111.8 Glucose Level 131mg/dL (70-99) Calcium Level 8.7mg/dL (8.5-10.1) Magnesium Level 1.9mg/dL (1.8-2.4) Assessment Assessment Assessment 1.acute diarrhea with severe weakness +yeast gram stain 2. R hip wound with wound vac POA 3. R hip pain chronic 4. CHF EF 35-40% per ECHO stable at admission, not acute 5. DM II with neuropathy insulin controlled, 6. hyperlipidemia 7. anemia chronic B12 deficiency 8. CAD with h/o AR, CABG x4 9. Rheumatoid arthritis 10. 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 diverticulosis 12. severe depression single episode mildly active 13 CKD II 14. severe weakness and debility 15. severe PCL malnutrition with trace ketonuria 16. seborrheic dermatitis 17. OA R hip severe 18. 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 Polyarthralgia. 20. Primary polyarticular osteoarthritis. 21 DMARD monitoring. 22. Chronic nonsteroidal antiinflammatory drug use. 23. R hip decubitus ulcer stage III s/p debridement 04/14/16 PLAN: diarrhea stool work up pending C diff negative 06/20 Immodium prn after stool studies obtained stool studies pending currently Flagyl 500 IV [id number] 06/22, diarrhea worse -GI consult Gram stain stool-yeast, final culture pending. Flagyl stopped, not improved-vomited with meal evening 06/21 Begin diflucan 400mg daily IV-add tele monitoring-DC 06/22 hat trimmer consult-supplements low carb continue immodium for now Lactobacillus 1 tablet daily with meals 06/23 GI- Cortisol level-14.3 --chronic steroids (prednisone 5mg daily) Begin cholestyramine QID 06/22 06/25-reports diarrhea not improving, wound R hip/R foot continue wound vac R hip wound care R heel wound care consult ordered wound vac R foot to be placed severe PCL malnutrition supplement begin PPN 06/22 hat trimmer consult-supplements low carb check weight today CKD II Admit Na 145 06/25 137 K 3.9 54.7 BUN 20 11 Cr 1.0 0.7 Mg 1.9 replace K with 20 meq today IVF with 40 K 50cc/hr 06/20-DC 06/22 Mg SO4 2 gm IV today 06/21 DM II FSBS/ssi BS 129-133 severe weakness and debility PT OT DVT/GI prophylaxis lovenox PPI acute on chronic pain Fentanyl not helping pain, oral pain med helps more Will begin Tylenol 1gm bid Change to oxycodone 10mg q 4 hour prn. DC Fentanyl. NSVT Mg K therapeutic Cardiology consult no further evaluation hypothyroid TSH 10.853-chronic steroid use For more details regarding further plans, please refer to the orders. The patient was seen and examined by me. Chart reviewed and plan of care formulated. Discussed with, reviewed and agree with MEDICATION SPECIALIST's notes, plan of care and orders with modifications as necessary. For more details regarding further plans, please refer to the orders. TSH elevated. Has acute on chronic illness.will monitor.No new RX necessary at this time. Plan Plan For more details regarding further plans, please refer to the orders. 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 As per staff he has no diarrhea for over one day. He needs SNF. The patient was seen and examined by me. Chart reviewed and plan of care formulated. Discussed with, reviewed and agree with MEDICATION SPECIALIST's notes, plan of care and orders with modifications as necessary. For more details regarding further plans, please refer to the orders. HERNANDEZ WARD APRN Jun 25, 2016 06:43 FEROZ ESPOSITO MD Jun 25, 2016 09:34
[2016-06-25 07:00] VITALS: BP 100/59
[2016-06-25] MEDS: LEVOTHYROXINE 88 MCG TABLET PO SCH (07:00)
[2016-06-25] MEDS: PANTOPRAZOLE 40 MG TABLET. PO SCH (07:07)
[2016-06-25] MEDS: CLOPIDOGREL BISULFATE 75 MG TABLET PO SCH (07:49)
[2016-06-25] MEDS: HYDROXYCHLOROQUINE 200 MG TABLET PO SCH ×2 (07:49→20:12)
[2016-06-25] MEDS: PREDNISONE 5 MG TABLET PO SCH (07:50)
[2016-06-25] MEDS: POTASSIUM CHLORIDE 20 MEQ TABLET.ER. PO SCH ×2 (07:50→16:30)
[2016-06-25] MEDS: LACTOBACILLUS ACIDOPH & BULGAR 1 TABLET. PO SCH ×3 (07:50→20:12)
[2016-06-25] MEDS: ACETAMINOPHEN 500 MG TABLET PO SCH ×2 (07:51→20:11)
[2016-06-25] MEDS: VANCOMYCIN 125 MG/2.5 ML ORAL SOLUTION. PO SCH ×4 (09:22→20:11)
[2016-06-25] MEDS: CARVEDILOL 3.125 MG TABLET PO SCH ×2 (09:23→16:30)
[2016-06-25] MEDS: AMIODARONE HCL 200 MG TABLET. PO SCH (09:29)
[2016-06-25] MEDS: OXYCODONE IR 5 MG TABLET. PO PRN ×2 (09:30→20:22)
[2016-06-25] MEDS: CHOLESTYRAMINE/ASPARTAME 4 GM PACKET PO SCH ×4 (10:49→22:29)
[2016-06-25 11:00] VITALS: BP 113/67
[2016-06-25] MEDS: AA 2.75%/CALCIUM/LYTES/D5W 2,000 ML IV SCH (11:00)
[2016-06-25] MEDS: ENOXAPARIN 40 MG/0.4 ML DISP.SYRIN. SQ SCH (13:46)
[2016-06-25 15:00] VITALS: BP 120/69
[2016-06-25 19:59] VITALS: BP 113/64
[2016-06-25] MEDS: ATORVASTATIN CALCIUM 40 MG TABLET. PO SCH (20:10)
[2016-06-25 23:59] VITALS: BP 108/66
[2016-06-26] MEDS: AA 4.25%/CALCIUM/LYTES/D5W 1,000 ML IV SCH ×3 (00:47→21:09)
[2016-06-26 03:59] VITALS: BP 113/63
[2016-06-26 06:10] LABS: CALCIUM 8.5 mg/dL (8.5-10.1); CREATININE 0.7 mg/dL (0.7-1.3); GFR 111.8
[2016-06-26 06:36] LABS: BASO % 0 % (0-3); EOS % 2 % (0-3); HEMATOCRIT 37.3 % (39.0-53.0); HEMOGLOBIN 12.3 g/dL (13.0-17.5); LYMPH # 1.3 x10^3/uL (1.0-4.8); LYMPH % 13 % (24-48); MEAN CORPUSCULAR HEMOGLOBIN 32 pg (25-35); MEAN CORPUSCULAR HGB CONC 33 g/dL (31-37); MEAN CORPUSCULAR VOLUME 96 fL (79-100); MONO % 10 % (0-9); NEUT % 75 % (31-73); PLATELET COUNT 300 x10^3/uL (140-400); RED CELL DISTRIBUTION WIDTH 13.4 % (11.5-14.5); WHITE BLOOD COUNT 9.7 x10^3/uL (4.0-11.0)
[2016-06-26 07:00] VITALS: BP 160/72
[2016-06-26] MEDS: LEVOTHYROXINE 88 MCG TABLET PO SCH (07:00)
[2016-06-26] MEDS: POTASSIUM CHLORIDE 20 MEQ TABLET.ER. PO SCH ×2 (08:00→09:07)
[2016-06-26] MEDS: LACTOBACILLUS ACIDOPH & BULGAR 1 TABLET. PO SCH ×3 (09:00→20:35)
[2016-06-26] MEDS: CHOLESTYRAMINE/ASPARTAME 4 GM PACKET PO SCH ×4 (09:07→20:35)
[2016-06-26] MEDS: VANCOMYCIN 125 MG/2.5 ML ORAL SOLUTION. PO SCH ×4 (09:07→20:35)
[2016-06-26] MEDS: PREDNISONE 5 MG TABLET PO SCH (09:08)
[2016-06-26] MEDS: ACETAMINOPHEN 500 MG TABLET PO SCH ×2 (09:08→20:35)
[2016-06-26] MEDS: AMIODARONE HCL 200 MG TABLET. PO SCH (09:08)
[2016-06-26] MEDS: CLOPIDOGREL BISULFATE 75 MG TABLET PO SCH (09:08)
[2016-06-26] MEDS: HYDROXYCHLOROQUINE 200 MG TABLET PO SCH ×2 (09:08→20:35)
[2016-06-26] MEDS: PANTOPRAZOLE 40 MG TABLET. PO SCH (09:08)
[2016-06-26] MEDS: CARVEDILOL 3.125 MG TABLET PO SCH ×2 (09:09→17:00)
--- NOTE | 2016-06-26 10:32 | PDOC ---
IM PROGRESS NOTES- Subjective Subjective diarrhea some improvement in consistency, still with unformed stools Objective Objective alert, weak Vitals Vital Signs Date Time Temp Pulse Resp B/P Pulse Ox O2 Delivery O2 Flow Rate FiO2 06/26/16 09:09 74 160/72 06/26/16 07:00 97.2 20 96 97.2 06/26/16 03:59 Room Air 06/25/16 21:22 2.0 Input & Output Intake and Output 06/26/16 07:00 Intake Total 1390 ml Output Total 900 ml Balance 490 ml Intake Oral 1390 ml Output Urine Total 900 ml # Voids 3 # Bowel Movements 5 Physical Exam Physical Exam General appearance - alert, chronically ill appearing, and in no distress Mental Status - alert, oriented to person, place, and time, affect appropriate to mood Head - normal Chest - clear to auscultation, no wheezes, rales or rhonchi, symmetric air entry Heart - S1 and S2 normal Abdomen - soft, nontender, nondistended, BS + Neurological - no acute focal neurological deficits Musculoskeletal - R hip Extremities - no pedal edema, wound vac R hip, R heel wound Skin - warm and dry Labs Laboratory Tests Test 06/24/16 11:34 06/24/16 15:36 06/24/16 20:46 06/25/16 05:19 Glucose (Fingerstick) 117mg/dL (70-99) 133mg/dL (70-99) 129mg/dL (70-99) White Blood Count 8.4x10^3/uL (4.0-11.0) Red Blood Count 4.19x10^6/uL (4.30-5.70) Hemoglobin 13.3g/dL (13.0-17.5) Hematocrit 39.4% (39.0-53.0) Mean Corpuscular Volume 94fL (79-100) Mean Corpuscular Hemoglobin 32pg (25-35) Mean Corpuscular Hemoglobin Concent 34g/dL (31-37) Red Cell Distribution Width 13.0% (11.5-14.5) Platelet Count 304x10^3/uL (140-400) Neutrophils (%) (Auto) 74% (31-73) Lymphocytes (%) (Auto) 14% (24-48) Monocytes (%) (Auto) 10% (0-9) Eosinophils (%) (Auto) 2% (0-3) Basophils (%) (Auto) 0% (0-3) Neutrophils # (Auto) 6.2x10^3uL (1.8-7.7) Lymphocytes # (Auto) 1.2x10^3/uL (1.0-4.8) Monocytes # (Auto) 0.9x10^3/uL (0.0-1.1) Eosinophils # (Auto) 0.2x10^3/uL (0.0-0.7) Basophils # (Auto) 0.0x10^3/uL (0.0-0.2) Sodium Level 137mmol/L (136-145) Potassium Level 4.7mmol/L (3.5-5.1) Chloride Level 104mmol/L (98-107) Carbon Dioxide Level 23mmol/L (21-32) Anion Gap 10 (6-14) Blood Urea Nitrogen 11mg/dL (8-26) Creatinine 0.7mg/dL (0.7-1.3) Estimated GFR (Cockcroft-Gault) 111.8 Glucose Level 131mg/dL (70-99) Calcium Level 8.7mg/dL (8.5-10.1) Magnesium Level 1.9mg/dL (1.8-2.4) Test 06/25/16 07:38 06/25/16 11:44 06/25/16 21:17 06/26/16 05:10 Glucose (Fingerstick) 136mg/dL (70-99) 148mg/dL (70-99) 120mg/dL (70-99) White Blood Count 9.7x10^3/uL (4.0-11.0) Red Blood Count 3.90x10^6/uL (4.30-5.70) Hemoglobin 12.3g/dL (13.0-17.5) Hematocrit 37.3% (39.0-53.0) Mean Corpuscular Volume 96fL (79-100) Mean Corpuscular Hemoglobin 32pg (25-35) Mean Corpuscular Hemoglobin Concent 33g/dL (31-37) Red Cell Distribution Width 13.4% (11.5-14.5) Platelet Count 300x10^3/uL (140-400) Neutrophils (%) (Auto) 75% (31-73) Lymphocytes (%) (Auto) 13% (24-48) Monocytes (%) (Auto) 10% (0-9) Eosinophils (%) (Auto) 2% (0-3) Basophils (%) (Auto) 0% (0-3) Neutrophils # (Auto) 7.2x10^3uL (1.8-7.7) Lymphocytes # (Auto) 1.3x10^3/uL (1.0-4.8) Monocytes # (Auto) 1.0x10^3/uL (0.0-1.1) Eosinophils # (Auto) 0.2x10^3/uL (0.0-0.7) Basophils # (Auto) 0.0x10^3/uL (0.0-0.2) Sodium Level 140mmol/L (136-145) Potassium Level 5.0mmol/L (3.5-5.1) Chloride Level 106mmol/L (98-107) Carbon Dioxide Level 24mmol/L (21-32) Anion Gap 10 (6-14) Blood Urea Nitrogen 14mg/dL (8-26) Creatinine 0.7mg/dL (0.7-1.3) Estimated GFR (Cockcroft-Gault) 111.8 Glucose Level 125mg/dL (70-99) Calcium Level 8.5mg/dL (8.5-10.1) Magnesium Level 2.1mg/dL (1.8-2.4) Test 06/26/16 06:55 Glucose (Fingerstick) 124mg/dL (70-99) Laboratory Tests Test 06/25/16 11:44 06/25/16 21:17 06/26/16 05:10 06/26/16 06:55 Glucose (Fingerstick) 148mg/dL (70-99) 120mg/dL (70-99) 124mg/dL (70-99) White Blood Count 9.7x10^3/uL (4.0-11.0) Red Blood Count 3.90x10^6/uL (4.30-5.70) Hemoglobin 12.3g/dL (13.0-17.5) Hematocrit 37.3% (39.0-53.0) Mean Corpuscular Volume 96fL (79-100) Mean Corpuscular Hemoglobin 32pg (25-35) Mean Corpuscular Hemoglobin Concent 33g/dL (31-37) Red Cell Distribution Width 13.4% (11.5-14.5) Platelet Count 300x10^3/uL (140-400) Neutrophils (%) (Auto) 75% (31-73) Lymphocytes (%) (Auto) 13% (24-48) Monocytes (%) (Auto) 10% (0-9) Eosinophils (%) (Auto) 2% (0-3) Basophils (%) (Auto) 0% (0-3) Neutrophils # (Auto) 7.2x10^3uL (1.8-7.7) Lymphocytes # (Auto) 1.3x10^3/uL (1.0-4.8) Monocytes # (Auto) 1.0x10^3/uL (0.0-1.1) Eosinophils # (Auto) 0.2x10^3/uL (0.0-0.7) Basophils # (Auto) 0.0x10^3/uL (0.0-0.2) Sodium Level 140mmol/L (136-145) Potassium Level 5.0mmol/L (3.5-5.1) Chloride Level 106mmol/L (98-107) Carbon Dioxide Level 24mmol/L (21-32) Anion Gap 10 (6-14) Blood Urea Nitrogen 14mg/dL (8-26) Creatinine 0.7mg/dL (0.7-1.3) Estimated GFR (Cockcroft-Gault) 111.8 Glucose Level 125mg/dL (70-99) Calcium Level 8.5mg/dL (8.5-10.1) Magnesium Level 2.1mg/dL (1.8-2.4) Meds Current Medications Amino Acids/ Electrolytes/ Dextrose (Clinimix E 4.25%-5% Solution) 1,000 ml @ 80 mls/hr [id number] IV Last administered on 06/26/16 00:47; Start 06/26/16 at 00 :23 Potassium Chloride (Klor-Con) 20 meq DAILY10 PO Last administered on 06/26/16 09:07; Start 06/26/16 at 10:00 Assessment Assessment Assessment 1.acute diarrhea with severe weakness +yeast gram stain 2. R hip wound with wound vac POA 3. R hip pain chronic 4. CHF EF 35-40% per ECHO stable at admission, not acute 5. DM II with neuropathy insulin controlled, 6. hyperlipidemia 7. anemia chronic B12 deficiency 8. CAD with h/o IA, CABG x4 9. Rheumatoid arthritis 10. 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 diverticulosis 12. severe depression single episode mildly active 13 CKD II 14. severe weakness and debility 15. severe PCL malnutrition with trace ketonuria 16. seborrheic dermatitis 17. OA R hip severe 18. 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 Polyarthralgia. 20. Primary polyarticular osteoarthritis. 21 DMARD monitoring. 22. Chronic nonsteroidal antiinflammatory drug use. 23. R hip decubitus ulcer stage III s/p debridement 04/14/16 PLAN: diarrhea stool work up pending C diff negative 06/20 Immodium prn after stool studies obtained stool studies pending currently Flagyl 500 IV [id number] 06/22, diarrhea worse -GI consult Gram stain stool-yeast, final culture pending. Flagyl stopped, not improved-vomited with meal evening 06/21 Begin diflucan 400mg daily IV-add tele monitoring-DC 06/22 nurse coordinator consult-supplements low carb continue immodium for now Lactobacillus 1 tablet daily with meals 06/23 GI- Cortisol level-14.3 --chronic steroids (prednisone 5mg daily) Begin cholestyramine QID 06/22 Diarrhea better. wound R hip/R foot continue wound vac R hip wound care R heel wound care consult ordered wound vac R foot to be placed severe PCL malnutrition supplement begin PPN 06/22 nurse coordinator consult-supplements low carb check weight today CKD II Admit Na 145 06/25 137 K 3.9 54.7 BUN 20 11 Cr 1.0 0.7 Mg 1.9 replace K with 20 meq today IVF with 40 K 50cc/hr 06/20-DC 06/22 Mg SO4 2 gm IV today 06/21 DM II FSBS/ssi BS 129-133 severe weakness and debility PT OT DVT/GI prophylaxis lovenox PPI acute on chronic pain Fentanyl not helping pain, oral pain med helps more Will begin Tylenol 1gm bid Change to oxycodone 10mg q 4 hour prn. DC Fentanyl. NSVT better Mg K therapeutic Cardiology consult no further evaluation hypothyroid TSH 10.853-chronic steroid use Hyperkalemia- decrease KCL to 20 meq daily. Plan Plan For more details regarding further plans, please refer to the orders. Nutrition Consultation Dietary Evaluation: Recommendations by RD: Add supplement feedings Comments: rec mvi q day and vit c 500 mg bid to aid with wound healing continue arginaid Expected Outcomes/Goals: to meet > 75% est nutr needs via po intake- not met , goal ongoing Interpretation of weight loss: >10% in 6 months Malnutrition Findings: Food and Nutrition Intake (Mod: <75% est energy req 7days Reduced Density Control Puncher Strength: N/A Weight Status: Appropriate Fluid Accumulation (N/A): N/A FEROZ ESPOSITO MD Jun 26, 2016 10:32
[2016-06-26] MEDS: ONDANSETRON PF 4 MG/2 ML VIAL. IV PRN (10:44)
[2016-06-26 11:00] VITALS: BP 120/66
[2016-06-26] MEDS: ENOXAPARIN 40 MG/0.4 ML DISP.SYRIN. SQ SCH (13:18)
[2016-06-26 15:00] VITALS: BP 134/60
[2016-06-26] MEDS: OXYCODONE IR 5 MG TABLET. PO PRN (17:29)
[2016-06-26 19:00] VITALS: BP 108/62
[2016-06-26] MEDS: ATORVASTATIN CALCIUM 40 MG TABLET. PO SCH (20:35)
[2016-06-26 23:00] VITALS: BP 119/68
[2016-06-27 03:00] VITALS: BP 106/61
[2016-06-27 06:26] LABS: BASO % 0 % (0-3); EOS % 2 % (0-3); HEMATOCRIT 37.3 % (39.0-53.0); HEMOGLOBIN 12.8 g/dL (13.0-17.5); LYMPH # 1.2 x10^3/uL (1.0-4.8); LYMPH % 14 % (24-48); MEAN CORPUSCULAR HEMOGLOBIN 32 pg (25-35); MEAN CORPUSCULAR HGB CONC 34 g/dL (31-37); MEAN CORPUSCULAR VOLUME 94 fL (79-100); MONO % 8 % (0-9); NEUT % 76 % (31-73); PLATELET COUNT 309 x10^3/uL (140-400); RED BLOOD COUNT 3.99 x10^6/uL (4.30-5.70); RED CELL DISTRIBUTION WIDTH 13.5 % (11.5-14.5); WHITE BLOOD COUNT 9.2 x10^3/uL (4.0-11.0)
[2016-06-27] MEDS: LEVOTHYROXINE 88 MCG TABLET PO SCH (06:34)
[2016-06-27 06:36] LABS: CALCIUM 8.6 mg/dL (8.5-10.1); CREATININE 0.7 mg/dL (0.7-1.3); GFR 111.8; POTASSIUM 4.4 mmol/L (3.5-5.1)
[2016-06-27 07:00] VITALS: BP 111/48
[2016-06-27] MEDS: LACTOBACILLUS ACIDOPH & BULGAR 1 TABLET. PO SCH (07:58)
[2016-06-27] MEDS: CLOPIDOGREL BISULFATE 75 MG TABLET PO SCH (07:58)
[2016-06-27] MEDS: AMIODARONE HCL 200 MG TABLET. PO SCH (07:58)
[2016-06-27] MEDS: ACETAMINOPHEN 500 MG TABLET PO SCH (07:58)
[2016-06-27] MEDS: CARVEDILOL 3.125 MG TABLET PO SCH (07:59)
[2016-06-27] MEDS: PANTOPRAZOLE 40 MG TABLET. PO SCH (07:59)
[2016-06-27] MEDS: CHOLESTYRAMINE/ASPARTAME 4 GM PACKET PO SCH ×2 (08:01→12:04)
[2016-06-27] MEDS: PREDNISONE 5 MG TABLET PO SCH (08:01)
[2016-06-27] MEDS: VANCOMYCIN 125 MG/2.5 ML ORAL SOLUTION. PO SCH ×2 (08:01→12:04)
[2016-06-27] MEDS: HYDROXYCHLOROQUINE 200 MG TABLET PO SCH (08:02)
--- NOTE | 2016-06-27 08:11 | PDOC3 ---
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 R hip wound with wound vac POA 3. R hip pain chronic 4. CHF EF 35-40% per ECHO stable at admission, not acute 5. DM II with neuropathy insulin controlled, 6. hyperlipidemia 7. anemia chronic B12 deficiency 8. CAD with h/o ND, CABG x4 9. Rheumatoid arthritis 10. 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 diverticulosis 12. severe depression single episode mildly active 13 CKD II with no acute renal failure 14. severe weakness and debility 15. severe PCL malnutrition with trace ketonuria 16. seborrheic dermatitis 17. OA R hip severe 18. 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 Polyarthralgia. 20. Primary polyarticular osteoarthritis. 21 DMARD monitoring. 22. Chronic nonsteroidal antiinflammatory drug use. 23. R hip decubitus ulcer stage III s/p debridement 04/14/16 24. R foot wound POA with wound vac started during this admission Consults Consults Brian Zurita MD, Dr. Procedures Procedures None Labs Labs Laboratory Tests Test 06/24/16 11:34 06/24/16 15:36 06/24/16 20:46 06/25/16 05:19 Glucose (Fingerstick) 117mg/dL (70-99) 133mg/dL (70-99) 129mg/dL (70-99) White Blood Count 8.4x10^3/uL (4.0-11.0) Red Blood Count 4.19x10^6/uL (4.30-5.70) Hemoglobin 13.3g/dL (13.0-17.5) Hematocrit 39.4% (39.0-53.0) Mean Corpuscular Volume 94fL (79-100) Mean Corpuscular Hemoglobin 32pg (25-35) Mean Corpuscular Hemoglobin Concent 34g/dL (31-37) Red Cell Distribution Width 13.0% (11.5-14.5) Platelet Count 304x10^3/uL (140-400) Neutrophils (%) (Auto) 74% (31-73) Lymphocytes (%) (Auto) 14% (24-48) Monocytes (%) (Auto) 10% (0-9) Eosinophils (%) (Auto) 2% (0-3) Basophils (%) (Auto) 0% (0-3) Neutrophils # (Auto) 6.2x10^3uL (1.8-7.7) Lymphocytes # (Auto) 1.2x10^3/uL (1.0-4.8) Monocytes # (Auto) 0.9x10^3/uL (0.0-1.1) Eosinophils # (Auto) 0.2x10^3/uL (0.0-0.7) Basophils # (Auto) 0.0x10^3/uL (0.0-0.2) Sodium Level 137mmol/L (136-145) Potassium Level 4.7mmol/L (3.5-5.1) Chloride Level 104mmol/L (98-107) Carbon Dioxide Level 23mmol/L (21-32) Anion Gap 10 (6-14) Blood Urea Nitrogen 11mg/dL (8-26) Creatinine 0.7mg/dL (0.7-1.3) Estimated GFR (Cockcroft-Gault) 111.8 Glucose Level 131mg/dL (70-99) Calcium Level 8.7mg/dL (8.5-10.1) Magnesium Level 1.9mg/dL (1.8-2.4) Test 06/25/16 07:38 06/25/16 11:44 06/25/16 21:17 06/26/16 05:10 Glucose (Fingerstick) 136mg/dL (70-99) 148mg/dL (70-99) 120mg/dL (70-99) White Blood Count 9.7x10^3/uL (4.0-11.0) Red Blood Count 3.90x10^6/uL (4.30-5.70) Hemoglobin 12.3g/dL (13.0-17.5) Hematocrit 37.3% (39.0-53.0) Mean Corpuscular Volume 96fL (79-100) Mean Corpuscular Hemoglobin 32pg (25-35) Mean Corpuscular Hemoglobin Concent 33g/dL (31-37) Red Cell Distribution Width 13.4% (11.5-14.5) Platelet Count 300x10^3/uL (140-400) Neutrophils (%) (Auto) 75% (31-73) Lymphocytes (%) (Auto) 13% (24-48) Monocytes (%) (Auto) 10% (0-9) Eosinophils (%) (Auto) 2% (0-3) Basophils (%) (Auto) 0% (0-3) Neutrophils # (Auto) 7.2x10^3uL (1.8-7.7) Lymphocytes # (Auto) 1.3x10^3/uL (1.0-4.8) Monocytes # (Auto) 1.0x10^3/uL (0.0-1.1) Eosinophils # (Auto) 0.2x10^3/uL (0.0-0.7) Basophils # (Auto) 0.0x10^3/uL (0.0-0.2) Sodium Level 140mmol/L (136-145) Potassium Level 5.0mmol/L (3.5-5.1) Chloride Level 106mmol/L (98-107) Carbon Dioxide Level 24mmol/L (21-32) Anion Gap 10 (6-14) Blood Urea Nitrogen 14mg/dL (8-26) Creatinine 0.7mg/dL (0.7-1.3) Estimated GFR (Cockcroft-Gault) 111.8 Glucose Level 125mg/dL (70-99) Calcium Level 8.5mg/dL (8.5-10.1) Magnesium Level 2.1mg/dL (1.8-2.4) Test 06/26/16 06:55 06/26/16 11:06 06/26/16 17:21 06/26/16 21:13 Glucose (Fingerstick) 124mg/dL (70-99) 158mg/dL (70-99) 130mg/dL (70-99) 118mg/dL (70-99) Test 06/27/16 05:50 06/27/16 07:35 White Blood Count 9.2x10^3/uL (4.0-11.0) Red Blood Count 3.99x10^6/uL (4.30-5.70) Hemoglobin 12.8g/dL (13.0-17.5) Hematocrit 37.3% (39.0-53.0) Mean Corpuscular Volume 94fL (79-100) Mean Corpuscular Hemoglobin 32pg (25-35) Mean Corpuscular Hemoglobin Concent 34g/dL (31-37) Red Cell Distribution Width 13.5% (11.5-14.5) Platelet Count 309x10^3/uL (140-400) Neutrophils (%) (Auto) 76% (31-73) Lymphocytes (%) (Auto) 14% (24-48) Monocytes (%) (Auto) 8% (0-9) Eosinophils (%) (Auto) 2% (0-3) Basophils (%) (Auto) 0% (0-3) Neutrophils # (Auto) 7.0x10^3uL (1.8-7.7) Lymphocytes # (Auto) 1.2x10^3/uL (1.0-4.8) Monocytes # (Auto) 0.8x10^3/uL (0.0-1.1) Eosinophils # (Auto) 0.2x10^3/uL (0.0-0.7) Basophils # (Auto) 0.0x10^3/uL (0.0-0.2) Sodium Level 136mmol/L (136-145) Potassium Level 4.4mmol/L (3.5-5.1) Chloride Level 102mmol/L (98-107) Carbon Dioxide Level 26mmol/L (21-32) Anion Gap 8 (6-14) Blood Urea Nitrogen 16mg/dL (8-26) Creatinine 0.7mg/dL (0.7-1.3) Estimated GFR (Cockcroft-Gault) 111.8 Glucose Level 114mg/dL (70-99) Calcium Level 8.6mg/dL (8.5-10.1) Magnesium Level 2.2mg/dL (1.8-2.4) Glucose (Fingerstick) 127mg/dL (70-99) Medications Medications Medications reviewed and reconciled for discharge. Brief hospital course Brief hospital course This 71 year old male who presented with diarrhea was admitted. The following is a summary of his treatment: PLAN: diarrhea stool work up pending C diff negative 06/20 Immodium prn after stool studies obtained stool studies pending currently Flagyl 500 IV [id number] 06/22, diarrhea worse -GI consult Gram stain stool-yeast, final culture pending. Flagyl stopped, not improved-vomited with meal evening 06/21 Begin diflucan 400mg daily IV-add tele monitoring-DC 06/22 converter supervisor consult-supplements low carb continue immodium for now Lactobacillus 1 tablet daily with meals 06/23 GI- Cortisol level-14.3 --chronic steroids (prednisone 5mg daily) Begin cholestyramine QID no diarrhea over weekend low grade temp 06/26 99.0F to 99.6F wound R hip/R foot continue wound vac R hip wound care R heel wound care consult ordered wound vac R foot to placed severe PCL malnutrition supplement begin PPN 06/22 converter supervisor consult-supplements low carb check weight today CKD II Admit Na 145 023/27 136 K 3.9 4.4 BUN 20 16 Cr 1.0 0.7 Mg 2.2 replace K with 20 meq today IVF with 40 K 50cc/hr 06/20-DC 06/22 Mg SO4 2 gm IV today 06/21 DM II FSBS/ssi BS 114-130 severe weakness and debility PT OT DVT/GI prophylaxis lovenox PPI acute on chronic pain Fentanyl not helping pain, oral pain med helps more Will begin Tylenol 1gm bid Change to oxycodone 10mg q 4 hour prn. DC Fentanyl. NSVT Mg K therapeutic Cardiology consult no further work up, no changes in medications. For more details regarding further plans, please refer to the orders. He does not qualify for SNU. Please see DC orders for home with HHN PT OT. For more details regarding the past history, family history, social history, surgical history and other details, please refer to History and Physical. Subjective diarrhea some improvement in consistency, still with unformed stools Objective alert Vitals Vital Signs Date Time Temp Pulse Resp B/P Pulse Ox O2 Delivery O2 Flow Rate FiO2 06/27/16 07:59 72 106/61 06/27/16 07:00 97.9 20 98 Room Air 97.9 06/26/16 18:29 2.0 Physical Exam General appearance - alert, chronically ill appearing, and in no distress Mental Status - alert, oriented to person, place, and time, affect appropriate to mood Head - normal Chest - clear to auscultation, no wheezes, rales or rhonchi, symmetric air entry Heart - S1 and S2 normal Abdomen - soft, nontender, nondistended, BS + Neurological - no acute focal neurological deficits Musculoskeletal - R hip Extremities - no pedal edema, wound vac R hip, R heel wound vac Skin - warm and dry Medications Medications reviewed. Allergy Allergies Coded Allergies Type Severity Reaction Last Updated Verified I S O L A T I O N *CONTACT* Allergy Unknown 04/14/16 Yes No Known Medication Allergies Allergy Unknown 04/14/[address] Blackman in 3-5 days Disposition: Home health services (PT OT ) Comments Discharge Management - 35 minutes. For other details please refer to discharge instructions FEROZ BLACKMAN MD 06/27/16 0955: IM DISCHARGE & PROGRESS NOTES Brief hospital course Brief hospital course Does not have diarrhea. He will not do well at assisted living due to weakness and wounds but then has financial issues with retirement placement. Discharge today.will d/w case preparer and liner. The patient was seen and examined by me. Chart reviewed and plan of care formulated. Discussed with, reviewed and agree with [facility]'s notes, plan of care and orders with modifications as necessary. Discharge Management - 35 minutes. HERNANDEZ WARD APRN Jun 27, 2016 08:11 FEROZ BLACKMAN MD Jun 27, 2016 09:55
--- NOTE | 2016-06-27 08:14 | DISCH ---
DISCHARGE DISCHARGE DATE: Jun 27, 2016 FINAL DIAGNOSIS Problems Medical Problems: (1) Diarrhea Status: Acute (2) Failure to thrive Status: Acute (3) Nausea and vomiting Status: Acute (4) Severe protein-calorie malnutrition Status: Acute CONDITION ON DISCHARGE: Stable HOME HEALTH: Yes PT. HAS FUNCTIONAL LIMITATIONS: Yes FACE TO FACE ENCOUNTER: Yes POST DISCHARGE ORDERS ACTIVITY ORDERS: Activity as tolerated WEIGHT BEARING STATUS: As tolerated DIET AFTER DISCHARGE: Cardiac WOUND/INCISION CARE: Other, see below OTHER WOUND INSTRUCTIONS: wound vac R hip and R heel, change dressing q 3 days , 125mmHg suction OTHER ORDERS: use prosthesis,wheelchair. order PT/OT; CHECKS AFTER DISCHARGE CHECKS AFTER DISCHARGE: Check blood sugar, ac/hs COMMENTS: Check BS tid ac. FOLLOW-UP PHYSICIAN FOLLOW-UP: Dr. Blackman in 3-5 days ADDITIONAL FOLLOW-UP: C diff precautions until Vanco completed LAB ORDERS FOR FOLLOW-UP: CBC with diff CMP next Monday TREATMENT/EQUIPMENT ORDERS ADAPTIVE EQUIPMENT NEEDED: Wheelchair HERNANDEZ WARD APRN Jun 27, 2016 08:14
[2016-06-27] MEDS ORDERED: POTA20TA4 PO (08:21)
[2016-06-27] MEDS ORDERED: OXYC10TA PO (08:21)
[2016-06-27] MEDS ORDERED: Vancomycin Hcl PO (08:21)
[2016-06-27] MEDS ORDERED: ACID1TAB14 PO (08:21)
[2016-06-27] MEDS ORDERED: CHOL4POW3 PO (08:21)
--- NOTE | 2016-06-27 08:29 | DISCH ---
DISCHARGE WITH HOME HEALTH DISCHARGE INFORMATION: Discharge Date: Jun 27, 2016 Final Diagnosis: Problems Medical Problems: (1) Diarrhea Status: Acute (2) Failure to thrive Status: Acute (3) Nausea and vomiting Status: Acute (4) Severe protein-calorie malnutrition Status: Acute Condition on Discharge: Stable HOME HEALTH: Face to Face: I certify this patient is under my care and that I, or my advanced practice nurse working with me, had a face to face encounter that meets the physician face to face encounter requirements with this patient on 06/27/16. 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 Blackman in 3-5 days TREATMENT/EQUIPMENT ORDERS Adaptive Equipment Issued: Wheelchair CERTIFICATION STATEMENT: Certification Statement: Certification Statement: Based on the above finding, I certify that this patient is confined to the home and needs intermittent assisted care, physical therapy and/or speech therapy, or continues to need occupational therapy.~ This patient is under my care, and I have initiated the establishment of the plan of care.~ This patient will be followed by myself or a community physician who will periodically review the plan of care. HERNANDEZ WARD APRN Jun 27, 2016 08:29
[2016-06-27] MEDS ORDERED: LACTOBACILLUS ACIDOPH & BULGAR 1 TABLET. PO SCH ×2 (09:00→11:30)
[2016-06-27] MEDS: POTASSIUM CHLORIDE 20 MEQ TABLET.ER. PO SCH (09:59)
[2016-06-27 11:00] VITALS: BP 110/36
[2016-06-27] MEDS: OXYCODONE IR 5 MG TABLET. PO PRN (12:09)
--- NOTE | 2016-06-27 13:54 | PDOC ---
Objective: Objective: Per RN - stools more formed, eating okay, to DC w/ home health today. Vital Signs: Vital Signs Date Time Temp Pulse Resp B/P Pulse Ox O2 Delivery O2 Flow Rate FiO2 06/27/16 13:32 96 Room Air 2.0 06/27/16 11:00 95.9 64 20 110/36 95.9 Labs: Laboratory Tests Test 06/26/16 17:21 06/26/16 21:13 06/27/16 05:50 06/27/16 07:35 Glucose (Fingerstick) 130mg/dL 118mg/dL 127mg/dL White Blood Count 9.2x10^3/uL Red Blood Count 3.99x10^6/uL Hemoglobin 12.8g/dL Hematocrit 37.3% Mean Corpuscular Volume 94fL Mean Corpuscular Hemoglobin 32pg Mean Corpuscular Hemoglobin Concent 34g/dL Red Cell Distribution Width 13.5% Platelet Count 309x10^3/uL Neutrophils (%) (Auto) 76% Lymphocytes (%) (Auto) 14% Monocytes (%) (Auto) 8% Eosinophils (%) (Auto) 2% Basophils (%) (Auto) 0% Neutrophils # (Auto) 7.0x10^3uL Lymphocytes # (Auto) 1.2x10^3/uL Monocytes # (Auto) 0.8x10^3/uL Eosinophils # (Auto) 0.2x10^3/uL Basophils # (Auto) 0.0x10^3/uL Sodium Level 136mmol/L Potassium Level 4.4mmol/L Chloride Level 102mmol/L Carbon Dioxide Level 26mmol/L Anion Gap 8 Blood Urea Nitrogen 16mg/dL Creatinine 0.7mg/dL Estimated GFR (Cockcroft-Gault) 111.8 Glucose Level 114mg/dL Calcium Level 8.6mg/dL Magnesium Level 2.2mg/dL Test 06/27/16 11:08 Glucose (Fingerstick) 155mg/dL PE: GEN: NAD NEURO/PSYCH: sleeping A/P: Diarrhea, likely atbx related -C Diff neg, stool cx w/ yeast -improved on vanco, cholestyramine, and probiotics -- Improved. Note plans for DC. GRICELDA PATRICIO Jun 27, 2016 13:53
[2016-06-28 08:25] LABS: AMIODARONE 1.4 ug/mL (1.0-2.5)
== END 2016-06-27 15:00 | disposition home health service (06) | DRG 371 ==
LOC: ER 10:54 → 5 SOUTH 13:25
PROVIDERS: ADMIT Internal Medicine; ATTEND Internal Medicine
DX: A04.7 Enterocolitis due to Clostridium difficile (principal); E43 Unspecified severe protein-calorie malnutrition; I50.22 Chronic systolic (congestive) heart failure; I13.0 Hypertensive heart and chronic kidney disease with heart failure and stage 1 through stage 4 chronic kidney disease, or unspecified chronic kidney disease; I47.2 Ventricular tachycardia; D64.9 Anemia, unspecified; E03.9 Hypothyroidism, unspecified; E11.22 Type 2 diabetes mellitus with diabetic chronic kidney disease; E11.40 Type 2 diabetes mellitus with diabetic neuropathy, unspecified; E53.8 Deficiency of other specified B group vitamins; E78.00 Pure hypercholesterolemia, unspecified; E78.5 Hyperlipidemia, unspecified; F32.9 Major depressive disorder, single episode, unspecified; I25.10 Atherosclerotic heart disease of native coronary artery without angina pectoris; I25.5 Ischemic cardiomyopathy; K21.9 Gastro-esophageal reflux disease without esophagitis; K57.90 Diverticulosis of intestine, part unspecified, without perforation or abscess without bleeding; S91.301A Unspecified open wound, right foot, initial encounter; E86.0 Dehydration; M06.9 Rheumatoid arthritis, unspecified; M16.11 Unilateral primary osteoarthritis, right hip; N18.2 Chronic kidney disease, stage 2 (mild); R62.7 Adult failure to thrive; Z68.27 Body mass index [BMI] 27.0-27.9, adult; Z59.9 Problem related to housing and economic circumstances, unspecified; Z79.1 Long term (current) use of non-steroidal anti-inflammatories (NSAID); I25.2 Old myocardial infarction; Z79.4 Long term (current) use of insulin; Z83.3 Family history of diabetes mellitus; Z87.01 Personal history of pneumonia (recurrent); Z87.891 Personal history of nicotine dependence; Z89.512 Acquired absence of left leg below knee; Z95.1 Presence of aortocoronary bypass graft; Z99.3 Dependence on wheelchair; Z98.49 Cataract extraction status, unspecified eye; Z89.412 Acquired absence of left great toe
CPT/HCPCS: 36415; 80048; 80053; 80299; 81001; 82533; 82947; 83735; 84443; 85027; 85610; 85730; 87045; 87086; 87205; 87324; 87641; 93005; 96361; 96374; 96375; J1650; J2405; J3010; J3490; J7030; J7040; J7042; J7060; J7512; S0028; 97530; 97535; 97605; 97606; 99285-25

== ENCOUNTER 2016-06-30 17:17 | Inpatient (IN) | payer MEDICARE ==
[~2016-06-30] VITALS: Ht 152.4 cm; Wt 66.7 kg
[~2016-06-30 17:17] MED LIST changes: +ACID1TAB14 PO; +CHOL4POW3 PO; +OXYC10TA PO; +Vancomycin Hcl PO
--- NOTE | 2016-06-30 18:47 | PHYS DOC ---
Past Medical History Past Medical History: CAD, Constipation, Diabetes-Type II, GERD, High Cholesterol, Hypertension, Hypothyroid, DC, Other Additional Past Medical Histor: RA Past Surgical History: Coronary Bypass Surgery, Tonsillectomy Additional Past Surgical Histo: multiple toe amputations, cataracts, LBKA Alcohol Use: None Drug Use: None Adult General Chief Complaint Chief Complaint: WEAKNESS/GENERALIZED HPI HPI Patient is a 71 year old male who presents with generalized weakness and right leg wound. Patient was just discharged from the hospital this Monday after having an episode of similar symptoms. Patient is a diabetic and has a wound VAC on his right leg. Patient denies any recent fevers or chills. Patient does complain of chronic unrelenting diarrhea but no blood in the stools. No vomiting. Appetite has been normal. He eats 2 meals a day. Patient denies any pain with urination or urinary frequency. No recent falls. 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 Review of Systems Review of Systems Constitutional: Denies fever or chills Eyes: Denies change in visual acuity, redness, or eye pain HENT: Denies nasal congestion or sore throat Respiratory: Denies cough or shortness of breath Cardiovascular: No chest pain or palpitations GI: Denies abdominal pain, nausea, vomiting, bloody stools, positive diarrhea : Denies dysuria or hematuria Musculoskeletal: Denies new back pain or joint pain Integument: Denies rash or skin lesions other than right leg wound VAC Neurologic: Denies headache, or sensory changes. Positive focal weakness Endocrine: Denies polyuria or polydipsia Allergies Allergies Allergies Coded Allergies Type Severity Reaction Last Updated Verified I S O L A T I O N *CONTACT* Allergy Unknown 04/14/16 Yes No Known Medication Allergies Allergy Unknown 04/14/16 Yes Physical Exam Physical Exam Constitutional: Well developed, well nourished, no acute distress, non-toxic appearance. HENT: Normocephalic, atraumatic, oropharynx moist, no oral exudates, nose normal. Eyes: PERRLA, EOMI, conjunctiva normal, no discharge. Neck: Normal range of motion, no tenderness, supple, no stridor. Cardiovascular:Heart rate regular rhythm, no murmur Lungs & Thorax: Bilateral breath sounds clear to auscultation Abdomen: Bowel sounds normal, soft, no tenderness, no masses, no pulsatile masses. Skin: Warm, dry, no erythema, no rash. Wound VAC in place right leg Extremities: No cyanosis, no clubbing. Neurologic: Alert and oriented X 3, normal motor function, normal sensory function, no focal deficits noted. Psychologic: Affect normal, judgement normal, mood normal. Current Patient Data Vital Signs Vital Signs Date Time Temp Pulse Resp B/P Pulse Ox O2 Delivery O2 Flow Rate FiO2 06/30/16 21:00 84 18 110/61 96 Room Air 06/30/16 17:25 98.0 98.0 Lab Values Laboratory Tests Test 06/30/16 17:25 White Blood Count 12.0x10^3/uL (4.0-11.0) H Red Blood Count 3.91x10^6/uL (4.30-5.70) L Hemoglobin 12.2g/dL (13.0-17.5) L Hematocrit 37.1% (39.0-53.0) L Mean Corpuscular Volume 95fL (79-100) Mean Corpuscular Hemoglobin 31pg (25-35) Mean Corpuscular Hemoglobin Concent 33g/dL (31-37) Red Cell Distribution Width 13.4% (11.5-14.5) Platelet Count 400x10^3/uL (140-400) Neutrophils (%) (Auto) 84% (31-73) H Lymphocytes (%) (Auto) 9% (24-48) L Monocytes (%) (Auto) 7% (0-9) Eosinophils (%) (Auto) 0% (0-3) Basophils (%) (Auto) 0% (0-3) Neutrophils # (Auto) 10.1x10^3uL (1.8-7.7) H Lymphocytes # (Auto) 1.1x10^3/uL (1.0-4.8) Monocytes # (Auto) 0.8x10^3/uL (0.0-1.1) Eosinophils # (Auto) 0.0x10^3/uL (0.0-0.7) Basophils # (Auto) 0.0x10^3/uL (0.0-0.2) Sodium Level 145mmol/L (136-145) Potassium Level 4.0mmol/L (3.5-5.1) Chloride Level 107mmol/L (98-107) Carbon Dioxide Level 25mmol/L (21-32) Anion Gap 13 (6-14) Blood Urea Nitrogen 14mg/dL (8-26) Creatinine 0.9mg/dL (0.7-1.3) Estimated GFR (Cockcroft-Gault) 83.7 BUN/Creatinine Ratio 16 (6-20) Glucose Level 139mg/dL (70-99) H Calcium Level 8.9mg/dL (8.5-10.1) Total Bilirubin 0.4mg/dL (0.2-1.0) Aspartate Amino Transferase (AST) 70U/L (15-37) H Alanine Aminotransferase (ALT) 109U/L (16-63) H Alkaline Phosphatase 227U/L (46-116) H Total Protein 6.7g/dL (6.4-8.2) Albumin 2.7g/dL (3.4-5.0) L Albumin/Globulin Ratio 0.7 (1.0-1.7) L Laboratory Tests 06/30/16 17:25 Laboratory Tests 06/30/16 17:25 EKG EKG [] Radiology/Procedures Radiology/Procedures [] Course & Med Decision Making Course & Med Decision Making Pertinent Labs and Imaging studies reviewed. (See chart for details) Discussed case with Dr. Esposito at 21:14 and he agreed to admit patient as long as patient agreed to [facility] upon hospital discharge. I discussed this with Mr. Reynolds and he agreed to [facility] after hospitalization. [] Dragon Disclaimer Dragon Disclaimer This electronic medical record was generated, in whole or in part, using a voice recognition dictation system. Departure Departure Impression: Primary Impression: Generalized weakness Additional Impression: Complicated wound infection Disposition: ADMITTED INPATIENT Admitting Physician: Feroz Esposito Condition: STABLE Referrals: FEROZ ESPOSITO MD (PCP) Problem Qualifiers Additional Impression: Complicated wound infection Encounter type: subsequent encounter Qualified Code: T79.8XXD - Other early complications of trauma, subsequent encounter MATHEUS VELA MD Jun 30, 2016 18:47
[2016-06-30 18:51] LABS: BASO % 0 % (0-3); EOS % 0 % (0-3); HEMATOCRIT 37.1 % (39.0-53.0); HEMOGLOBIN 12.2 g/dL (13.0-17.5); LYMPH # 1.1 x10^3/uL (1.0-4.8); LYMPH % 9 % (24-48); MEAN CORPUSCULAR HEMOGLOBIN 31 pg (25-35); MEAN CORPUSCULAR HGB CONC 33 g/dL (31-37); MEAN CORPUSCULAR VOLUME 95 fL (79-100); MONO % 7 % (0-9); NEUT % 84 % (31-73); PLATELET COUNT 400 x10^3/uL (140-400); RED BLOOD COUNT 3.91 x10^6/uL (4.30-5.70); RED CELL DISTRIBUTION WIDTH 13.4 % (11.5-14.5)
[2016-06-30 19:08] LABS: CALCIUM 8.9 mg/dL (8.5-10.1); CREATININE 0.9 mg/dL (0.7-1.3); GFR 83.7
[2016-06-30 19:13] LABS: ALBUMIN 2.7 g/dL (3.4-5.0); ALBUMIN/GLOBULIN RATIO 0.7 (1.0-1.7); TOTAL BILIRUBIN 0.4 mg/dL (0.2-1.0); TOTAL PROTEIN 6.7 g/dL (6.4-8.2)
[2016-06-30 21:59] LABS: BILIRUBIN,URINE NEGATIVE (NEG); GLUCOSE,URINE NEGATIVE (NEG); NITRITE,URINE NEGATIVE (NEG); PH,URINE 5.5; PROTEIN,URINE 100 mg/dL (NEG-TRACE); UROBILINOGEN,URINE 0.2 mg/dL (0.2 mg/dL)
[2016-06-30 22:12] LABS: BACTERIA,URINE FEW /HPF (0-FEW); SQUAMOUS EPITHELIAL CELL,UR FEW /LPF
[2016-06-30 23:59] VITALS: BP 124/62
--- NOTE | 2016-07-01 00:01 | ACF ---
Admission Forms Criteria WOUND COMPLICATIONS Clinical Indications for Inpatient Care (Place 'X' for any and all applicable criteria): Ongoing inpatient care may be indicated for wound complications with ANY ONE of the following (1) (15): [X]I. Infection with ANY ONE of the following(32)(33): [ ]a) Temperature greater than 38.5 C (101.3 F) [ ]b) Evidence of tissue necrosis [ ]c) Erythema diameter expanding around wound despite treatment [ ]d) Mental status changes [ ]e) Dehydration [ ]f) Bacteremia [ ]g) Hemodynamic instability [ ]h) Suspected necrotizing fasciitis [ ]i) Rapidly spreading lesions [ ]j) High-risk location (eg, perineum, sternum, orbit) [X]k) High-risk coexisting clinical condition as indicated by ANY ONE of the following: [X]i) Poorly controlled diabetes [ ]ii) Cirrhosis [ ]iii) Renal failure [ ]iv) Neutropenia [ ] v) Asplenia [ ]vi) Immunosuppression (eg, AIDS, chronic corticosteroid use) [ ]viii) Other high-risk medical comorbidities [ ] II. Dehiscence requiring frequent monitoring or immediate treatment [ ] III. Hematoma with ANY ONE of the following: [ ]a) Hemodynamic instability or acute anemia due to rapid development of hematoma [ ]b) Neck hematoma causing airway compression [ ]c) Retroperitoneal hematoma [ ]d) Uncontrolled coagulopathy [ ]IV. Seroma with evidence of secondary infection and requirement for IV antibiotics [D](31) [ ]V. Pain that cannot be managed at lower level of care Extended stay beyond goal length of stay for primary condition may be needed until ALL of the following are present(1)(33)(34): [ ]a) Afebrile or fever resolving [ ]b) Hemodynamic stability [ ]c) Pain resolving [ ]d) Wound closed, continuity adequately restored, or wound manageable at lower level of care [ ]e) No drain needed or drain care manageable at lower level of care [ ]f) Wound hematoma or seroma resolving [ ]g) Antibiotics not needed or regimen manageable at lower level of care(38) [ ]h) Dressing care manageable at lower level of care [ ]i) Coagulopathy absent, resolved, or treatable at lower level of care [ ]j) Medical comorbidities resolved or treatable at lower level of care The original [employer] content created by [facility] has been revised. The portions of the content which have been revised are identified through the use of italic text or in bold, and [facility] has neither reviewed nor approved the modified material. All other unmodified content is copyright [facility]. Please see references footnoted in the original [facility] edition 2016 Admission Criteria Met?: Yes KARY SCHULTZ Jul 01, 2016 00:01
[2016-07-01 03:00] VITALS: BP 121/31
[2016-07-01 06:24] VITALS: BP 124/46
[2016-07-01 07:00] VITALS: BP_SYST 106; BP_SYST 95; BP_DIAS 50; BP_DIAS 51
--- NOTE | 2016-07-01 08:00 | RAD ---
Indication generalized body weakness. Protocol study. A single view of the chest was obtained. Comparison is made to an examination 15 days earlier. The heart and pulmonary vessels are unremarkable. The lungs are clear of acute infiltrates. Significant change compared to the previous exam is not seen. Postoperative changes are noted. There are degenerative changes about the shoulders. IMPRESSION: No acute finding. No significant change
--- NOTE | 2016-07-01 09:09 | PDOC1 ---
HERNANDEZ WARD MANAGER EVENT 07/01/16 0909: HISTORY AND PHYSICAL Chief Complaint Chief Complaint This 71 year old male has been admitted with a chief complaint of weakness and continued diarrhea watery. He was discharged Monday to home as he refused NH placement. That admission the stool culture on 06/20 was negative. He was started on oral vancomycin empirically and cholestyramine QID. His diarrhea was improving. He reports the diarrhea resumed after discharge and his weakness has progressed to the point he is unable to stand. Admit lab: WBC 12.0 and LFTs were elevated. UA 5-10 WBC, neg nitrite, and moderate blood. C/S is pending. BC have been ordered for leukocytosis. CXR is clear. LFTs were not elevated last admission and GI has been consulted. He is continued on oral vancomycin. He is admitted for evaluation and treatment. Problem List Problems Medical Problems: (1) Complicated wound infection Status: Acute (2) Generalized weakness Status: Acute Past Medical History Cardiovascular: CAD, CHF (EF 35% systolic ), HTN, MN, Hyperlipidemia Pulmonary: Pneumonia (h/o) CENTRAL NERVOUS SYSTEM: Periperal neuropathy GI: Diverticulosis, GERD Heme/Onc: Anemia NOS Musculoskeletal: Osteoarthritis, Other (septic necrosis R hip ) Rheumatologic: Rheumatoid arthritis Infectious disease: Other Renal/: Chronic renal insuff (CKD II ) Endocrine: Diabetes (Type II neuropathy ), Hypothyroidism Past Surgical History Past Surgical History: Pacemaker (AICD placed and then removed due to infection ), CABG, Cataract Removal, Tonsillectomy, Other (L BKA ) Past Family History Family History: Cancer (parent, sister ), Diabetes (Father ) Past Social History [facility]. Multiple admissions recently. No h/o tobacco, ETOH, or illicit drug use. Review of Symptoms Review of Symptoms A 14 point ROS was completed with the following noted as positive: diarrhea, weakness with inability to stand, pain R hip chronic Other systems reviewed and negative. Medications Reviewed and reconciled Allergy Allergies Coded Allergies Type Severity Reaction Last Updated Verified I S O L A T I O N *CONTACT* Allergy Unknown 04/14/16 Yes No Known Medication Allergies Allergy Unknown 04/14/16 Yes Physical Exam Physical Exam General appearance - alert, chronically ill appearing, weak, and in no distress Mental Status - alert, oriented to person, place, and time, affect appropriate to mood Head - normal Chest - clear to auscultation, no wheezes, rales or rhonchi, symmetric air entry Heart - S1 and S2 normal Abdomen - soft, nontender, nondistended, no masses or organomegaly, BS+ Neurological - no acute focal neurological deficit Musculoskeletal - R hip wound vac, R LE decreased ROM, stiff at knee. dressing R foot, L BKA Extremities - no pedal edema Skin - warm and dry VTE Prophylaxis Ordered VTE Prophylaxis Devices: Yes VTE Pharmacological Prophylaxi: No Assessment Labs Laboratory Tests Test 06/30/16 17:25 06/30/16 21:30 07/01/16 07:42 White Blood Count 12.0x10^3/uL (4.0-11.0) Red Blood Count 3.91x10^6/uL (4.30-5.70) Hemoglobin 12.2g/dL (13.0-17.5) Hematocrit 37.1% (39.0-53.0) Mean Corpuscular Volume 95fL (79-100) Mean Corpuscular Hemoglobin 31pg (25-35) Mean Corpuscular Hemoglobin Concent 33g/dL (31-37) Red Cell Distribution Width 13.4% (11.5-14.5) Platelet Count 400x10^3/uL (140-400) Neutrophils (%) (Auto) 84% (31-73) Lymphocytes (%) (Auto) 9% (24-48) Monocytes (%) (Auto) 7% (0-9) Eosinophils (%) (Auto) 0% (0-3) Basophils (%) (Auto) 0% (0-3) Neutrophils # (Auto) 10.1x10^3uL (1.8-7.7) Lymphocytes # (Auto) 1.1x10^3/uL (1.0-4.8) Monocytes # (Auto) 0.8x10^3/uL (0.0-1.1) Eosinophils # (Auto) 0.0x10^3/uL (0.0-0.7) Basophils # (Auto) 0.0x10^3/uL (0.0-0.2) Sodium Level 145mmol/L (136-145) Potassium Level 4.0mmol/L (3.5-5.1) Chloride Level 107mmol/L (98-107) Carbon Dioxide Level 25mmol/L (21-32) Anion Gap 13 (6-14) Blood Urea Nitrogen 14mg/dL (8-26) Creatinine 0.9mg/dL (0.7-1.3) Estimated GFR (Cockcroft-Gault) 83.7 BUN/Creatinine Ratio 16 (6-20) Glucose Level 139mg/dL (70-99) Calcium Level 8.9mg/dL (8.5-10.1) Total Bilirubin 0.4mg/dL (0.2-1.0) Aspartate Amino Transf (AST/SGOT) 70U/L (15-37) Alanine Aminotransferase (ALT/SGPT) 109U/L (16-63) Alkaline Phosphatase 227U/L (46-116) Total Protein 6.7g/dL (6.4-8.2) Albumin 2.7g/dL (3.4-5.0) Albumin/Globulin Ratio 0.7 (1.0-1.7) Urine Collection Type Unknown Urine Color Yellow Urine Clarity Cloudy Urine pH 5.5 Urine Specific [place] >=1.030 Urine Protein 100mg/dL (NEG-TRACE) Urine Glucose (UA) Negativemg/dL (NEG) Urine Ketones (Stick) Negativemg/dL (NEG) Urine Blood Moderate (NEG) Urine Nitrite Negative (NEG) Urine Bilirubin Negative (NEG) Urine Urobilinogen Dipstick 0.2mg/dL (0.2 mg/dL) Urine Leukocyte Esterase Small (NEG) Urine RBC 11-20/HPF (0-2) Urine WBC 5-10/HPF (0-4) Urine Squamous Epithelial Cells Few/LPF Urine Bacteria Few/HPF (0-FEW) Urine Mucus Mod/LPF Glucose (Fingerstick) 90mg/dL (70-99) Laboratory Tests Test 06/30/16 17:25 06/30/16 21:30 07/01/16 07:42 White Blood Count 12.0x10^3/uL (4.0-11.0) Red Blood Count 3.91x10^6/uL (4.30-5.70) Hemoglobin 12.2g/dL (13.0-17.5) Hematocrit 37.1% (39.0-53.0) Mean Corpuscular Volume 95fL (79-100) Mean Corpuscular Hemoglobin 31pg (25-35) Mean Corpuscular Hemoglobin Concent 33g/dL (31-37) Red Cell Distribution Width 13.4% (11.5-14.5) Platelet Count 400x10^3/uL (140-400) Neutrophils (%) (Auto) 84% (31-73) Lymphocytes (%) (Auto) 9% (24-48) Monocytes (%) (Auto) 7% (0-9) Eosinophils (%) (Auto) 0% (0-3) Basophils (%) (Auto) 0% (0-3) Neutrophils # (Auto) 10.1x10^3uL (1.8-7.7) Lymphocytes # (Auto) 1.1x10^3/uL (1.0-4.8) Monocytes # (Auto) 0.8x10^3/uL (0.0-1.1) Eosinophils # (Auto) 0.0x10^3/uL (0.0-0.7) Basophils # (Auto) 0.0x10^3/uL (0.0-0.2) Sodium Level 145mmol/L (136-145) Potassium Level 4.0mmol/L (3.5-5.1) Chloride Level 107mmol/L (98-107) Carbon Dioxide Level 25mmol/L (21-32) Anion Gap 13 (6-14) Blood Urea Nitrogen 14mg/dL (8-26) Creatinine 0.9mg/dL (0.7-1.3) Estimated GFR (Cockcroft-Gault) 83.7 BUN/Creatinine Ratio 16 (6-20) Glucose Level 139mg/dL (70-99) Calcium Level 8.9mg/dL (8.5-10.1) Total Bilirubin 0.4mg/dL (0.2-1.0) Aspartate Amino Transf (AST/SGOT) 70U/L (15-37) Alanine Aminotransferase (ALT/SGPT) 109U/L (16-63) Alkaline Phosphatase 227U/L (46-116) Total Protein 6.7g/dL (6.4-8.2) Albumin 2.7g/dL (3.4-5.0) Albumin/Globulin Ratio 0.7 (1.0-1.7) Urine Collection Type Unknown Urine Color Yellow Urine Clarity Cloudy Urine pH 5.5 Urine Specific [place] >=1.030 Urine Protein 100mg/dL (NEG-TRACE) Urine Glucose (UA) Negativemg/dL (NEG) Urine Ketones (Stick) Negativemg/dL (NEG) Urine Blood Moderate (NEG) Urine Nitrite Negative (NEG) Urine Bilirubin Negative (NEG) Urine Urobilinogen Dipstick 0.2mg/dL (0.2 mg/dL) Urine Leukocyte Esterase Small (NEG) Urine RBC 11-20/HPF (0-2) Urine WBC 5-10/HPF (0-4) Urine Squamous Epithelial Cells Few/LPF Urine Bacteria Few/HPF (0-FEW) Urine Mucus Mod/LPF Glucose (Fingerstick) 90mg/dL (70-99) Plan Plan IMPRESSION:: 1. diarrhea watery with presumptive C diff POA 2. leukocytosis w/o fever 3. transaminitis 4. Severe weakness with inability to stand/transfer or do ADLs 5. R hip wound with wound vac POA 6. R hip pain chronic 7. CHF EF 35-40% per ECHO stable at admission, not acute 8. DM II with neuropathy insulin controlled, 9. hyperlipidemia 10. anemia chronic B12 deficiency 11. CAD with h/o MN, CABG x4 12. Rheumatoid arthritis 13. 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 diverticulosis 15. severe depression single episode mildly active 16 CKD II with no acute renal failure 17. severe weakness and debility 18. severe PCL malnutrition with trace ketonuria 19. seborrheic dermatitis 20. OA R hip severe 21. 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 Polyarthralgia. 23. Primary polyarticular osteoarthritis. 24 DMARD monitoring. 25. Chronic nonsteroidal antiinflammatory drug use. 26. R hip decubitus ulcer stage III s/p debridement 04/14/16 27. R foot wound POA PLAN diarrhea/transaminitis 06/20 stool culture neg resend stool C diff (06/20 LFTS) AP 239 Admit 227 AST 36 70 ALT 39 109 Continue Vancomycin for C diff no fever Admit WBC 12.0 Blood culture x2 urine culture pending weakness/debility PT OT DM II FSBS/no ssi at this time CKD II monitor wounds wound care nurse consult DVT/GI prophylaxis Lovenox PPI For more details regarding further plans, please refer to the orders. FEROZ ESPOSITO MD 07/01/16 1034: HISTORY AND PHYSICAL Plan Plan The patient was seen and examined by me. Chart reviewed and plan of care formulated. Discussed with, reviewed and agree with [employer]POS[employer] MAKER [employer] CUTTER's notes, plan of care and orders with modifications as necessary. For more details regarding further plans, please refer to the orders. Clinically patient does not have diarrhea.He did not have diarrhea in the last 2 days of his previous stay. He can not take care of himself.He needs to go to a custodial.D/w him extensively. HERNANDEZ WARD APRN Jul 01, 2016 09:09 FEROZ ESPOSITO MD Jul 01, 2016 10:34
[2016-07-01] MEDS ORDERED: HYDROCODONE/APAP 7.5/325MG TABLET. PO PRN (09:30)
[2016-07-01] MEDS ORDERED: PREDNISONE 5 MG TABLET PO SCH (10:00)
[2016-07-01] MEDS ORDERED: POTASSIUM CHLORIDE 20 MEQ TABLET.ER. PO SCH (10:00)
[2016-07-01 11:00] VITALS: BP 104/54
[2016-07-01] MEDS ORDERED: AMIODARONE HCL 200 MG TABLET. PO SCH (11:00)
[2016-07-01] MEDS ORDERED: HYDROXYCHLOROQUINE 200 MG TABLET PO SCH (11:00)
[2016-07-01] MEDS ORDERED: CLOPIDOGREL BISULFATE 75 MG TABLET PO SCH (11:00)
[2016-07-01] MEDS ORDERED: LEVOTHYROXINE 88 MCG TABLET PO SCH (11:00)
[2016-07-01] MEDS ORDERED: PANTOPRAZOLE 40 MG TABLET.DR. PO SCH (11:00)
[2016-07-01] MEDS ORDERED: LACTOBACILLUS ACIDOPH & BULGAR 1 TABLET. PO SCH (11:00)
[2016-07-01] MEDS ORDERED: KETOCONAZOLE 2% SHAMPOO 120ML BOTTLE. TP SCH (11:00)
[2016-07-01] MEDS: INSULIN ASPART 300 UNITS/3 ML INSULN.PEN SQ SCH ×2 (11:30→16:30)
--- NOTE | 2016-07-01 12:01 | PDOC ---
Subjective: Subjective: After DC, "didn't feel better" at home. Continued to have "very loose" stools 2- 3 times daily at home. Believes continued vanco at home. Say appetite was okay at home. Objective: Objective: GI consulted last admission (06/21/16) re: diarrhea thought to be antibiotic- associated. Improved w/ PO vanco, probiotics, and cholestyramine. Discharged . Readmitted w/ weakness. Asked to see on this occasion re: elevated LFTs. Vital Signs: Vital Signs Date Time Temp Pulse Resp B/P Pulse Ox O2 Delivery O2 Flow Rate FiO2 07/01/16 11:00 97.5 68 24 104/54 95 Room Air 97.5 Labs: Laboratory Tests Test 06/30/16 17:25 06/30/16 21:30 07/01/16 07:42 07/01/16 10:28 White Blood Count 12.0x10^3/uL Red Blood Count 3.91x10^6/uL Hemoglobin 12.2g/dL Hematocrit 37.1% Mean Corpuscular Volume 95fL Mean Corpuscular Hemoglobin 31pg Mean Corpuscular Hemoglobin Concent 33g/dL Red Cell Distribution Width 13.4% Platelet Count 400x10^3/uL Neutrophils (%) (Auto) 84% Lymphocytes (%) (Auto) 9% Monocytes (%) (Auto) 7% Eosinophils (%) (Auto) 0% Basophils (%) (Auto) 0% Neutrophils # (Auto) 10.1x10^3uL Lymphocytes # (Auto) 1.1x10^3/uL Monocytes # (Auto) 0.8x10^3/uL Eosinophils # (Auto) 0.0x10^3/uL Basophils # (Auto) 0.0x10^3/uL Sodium Level 145mmol/L Potassium Level 4.0mmol/L Chloride Level 107mmol/L Carbon Dioxide Level 25mmol/L Anion Gap 13 Blood Urea Nitrogen 14mg/dL Creatinine 0.9mg/dL Estimated GFR (Cockcroft-Gault) 83.7 BUN/Creatinine Ratio 16 Glucose Level 139mg/dL Calcium Level 8.9mg/dL Total Bilirubin 0.4mg/dL Aspartate Amino Transf (AST/SGOT) 70U/L Alanine Aminotransferase (ALT/SGPT) 109U/L Alkaline Phosphatase 227U/L Total Protein 6.7g/dL Albumin 2.7g/dL Albumin/Globulin Ratio 0.7 Urine Collection Type Unknown Urine Color Yellow Urine Clarity Cloudy Urine pH 5.5 Urine Specific [place] >=1.030 Urine Protein 100mg/dL Urine Glucose (UA) Negativemg/dL Urine Ketones (Stick) Negativemg/dL Urine Blood Moderate Urine Nitrite Negative Urine Bilirubin Negative Urine Urobilinogen Dipstick 0.2mg/dL Urine Leukocyte Esterase Small Urine RBC 11-20/HPF Urine WBC 5-10/HPF Urine Squamous Epithelial Cells Few/LPF Urine Bacteria Few/HPF Urine Mucus Mod/LPF Glucose (Fingerstick) 90mg/dL 143mg/dL Imaging: CXR IMPRESSION: No acute finding. No significant change. PE: GEN: NAD, was asleep when I walked in HEENT: Atraumatic, PERRL LUNGS: clear anteriorly HEART: RRR ABD: NABS, S/ND/NT EXTREMITY: No edema NEURO/PSYCH: A & O 3 A/P: Abnormal LFTs -labs as above, new except for previous elevation in Alk Phos Loose stools -recent admission w/ diarrhea; improved w/ vanco, cholestyramine, probiotics -seems to me stable/improved from last admission, loose stools 2-3 times daily -C Diff ordered again, still on vanco -- Will review w/ Dr. Guzman re: further workup for elevated transaminases, Alk Phos. GRICELDA PATRICIO Jul 01, 2016 12:01
[2016-07-01] MEDS: CHOLESTYRAMINE/ASPARTAME 4 GM PACKET PO SCH ×2 (12:40→17:00)
[2016-07-01] MEDS ORDERED: VANCOMYCIN 125 MG/2.5 ML ORAL SOLUTION. PO SCH (13:00)
[2016-07-01 14:33] VITALS: BP 111/63
[2016-07-01] MEDS ORDERED: CARVEDILOL 3.125 MG TABLET. PO SCH (17:00)
[2016-07-01] MEDS ORDERED: ATORVASTATIN CALCIUM 40 MG TABLET. PO SCH (21:00)
--- NOTE | 2016-07-04 09:46 | PDOC3 ---
This 71 year old male has been admitted with a chief complaint of weakness and continued diarrhea watery. He was discharged Monday to home as he refused NH placement. That admission the stool culture on 06/20 was negative. He was started on oral vancomycin empirically and cholestyramine QID. His diarrhea was improving. He reports the diarrhea resumed after discharge and his weakness has progressed to the point he is unable to stand. Admit lab: WBC 12.0 and LFTs were elevated. UA 5-10 WBC, neg nitrite, and moderate blood. C/S is pending. BC have been ordered for leukocytosis. CXR is clear. LFTs were not elevated last admission and GI has been consulted. He is continued on oral vancomycin. He is admitted for evaluation and treatment and gastroenterology was consulted. Vanco oral continued and he was discharged home with N. Problem List Problems Medical Problems: (1) Complicated wound infection Status: Acute (2) Generalized weakness Status: Acute Past Medical History Cardiovascular: CAD, CHF (EF 35% systolic ), HTN, NH, Hyperlipidemia Pulmonary: Pneumonia (h/o) CENTRAL NERVOUS SYSTEM: Periperal neuropathy GI: Diverticulosis, GERD Heme/Onc: Anemia NOS Musculoskeletal: Osteoarthritis, Other (septic necrosis R hip ) Rheumatologic: Rheumatoid arthritis Infectious disease: Other Renal/: Chronic renal insuff (CKD II ) Endocrine: Diabetes (Type II neuropathy ), Hypothyroidism Past Surgical History Past Surgical History: Pacemaker (AICD placed and then removed due to infection ), CABG, Cataract Removal, Tonsillectomy, Other (L BKA ) Past Family History Family History: Cancer (parent, sister ), Diabetes (Father ) Past Social History [facility] lives at [facility]. Multiple admissions recently. No h/o tobacco, ETOH, or illicit drug use. Review of Symptoms Review of Symptoms A 14 point ROS was completed with the following noted as positive: diarrhea, weakness with inability to stand, pain R hip chronic Other systems reviewed and negative. Medications Reviewed and reconciled Allergy Allergies Coded Allergies Type Severity Reaction Last Updated Verified I S O L A T I O N *CONTACT* Allergy Unknown 04/14/16 Yes No Known Medication Allergies Allergy Unknown 04/14/16 Yes Physical Exam Physical Exam General appearance - alert, chronically ill appearing, weak, and in no distress Mental Status - alert, oriented to person, place, and time, affect appropriate to mood Head - normal Chest - clear to auscultation, no wheezes, rales or rhonchi, symmetric air entry Heart - S1 and S2 normal Abdomen - soft, nontender, nondistended, no masses or organomegaly, BS+ Neurological - no acute focal neurological deficit Musculoskeletal - R hip wound vac, R LE decreased ROM, stiff at knee. dressing R foot, L BKA Extremities - no pedal edema Skin - warm and dry VTE Prophylaxis Ordered VTE Prophylaxis Devices: Yes VTE Pharmacological Prophylaxi: No Assessment Labs Laboratory Tests Test 06/30/16 17:25 06/30/16 21:30 07/01/16 07:42 White Blood Count 12.0x10^3/uL (4.0-11.0) Red Blood Count 3.91x10^6/uL (4.30-5.70) Hemoglobin 12.2g/dL (13.0-17.5) Hematocrit 37.1% (39.0-53.0) Mean Corpuscular Volume 95fL (79-100) Mean Corpuscular Hemoglobin 31pg (25-35) Mean Corpuscular Hemoglobin Concent 33g/dL (31-37) Red Cell Distribution Width 13.4% (11.5-14.5) Platelet Count 400x10^3/uL (140-400) Neutrophils (%) (Auto) 84% (31-73) Lymphocytes (%) (Auto) 9% (24-48) Monocytes (%) (Auto) 7% (0-9) Eosinophils (%) (Auto) 0% (0-3) Basophils (%) (Auto) 0% (0-3) Neutrophils # (Auto) 10.1x10^3uL (1.8-7.7) Lymphocytes # (Auto) 1.1x10^3/uL (1.0-4.8) Monocytes # (Auto) 0.8x10^3/uL (0.0-1.1) Eosinophils # (Auto) 0.0x10^3/uL (0.0-0.7) Basophils # (Auto) 0.0x10^3/uL (0.0-0.2) Sodium Level 145mmol/L (136-145) Potassium Level 4.0mmol/L (3.5-5.1) Chloride Level 107mmol/L (98-107) Carbon Dioxide Level 25mmol/L (21-32) Anion Gap 13 (6-14) Blood Urea Nitrogen 14mg/dL (8-26) Creatinine 0.9mg/dL (0.7-1.3) Estimated GFR (Cockcroft-Gault) 83.7 BUN/Creatinine Ratio 16 (6-20) Glucose Level 139mg/dL (70-99) Calcium Level 8.9mg/dL (8.5-10.1) Total Bilirubin 0.4mg/dL (0.2-1.0) Aspartate Amino Transf (AST/SGOT) 70U/L (15-37) Alanine Aminotransferase (ALT/SGPT) 109U/L (16-63) Alkaline Phosphatase 227U/L (46-116) Total Protein 6.7g/dL (6.4-8.2) Albumin 2.7g/dL (3.4-5.0) Albumin/Globulin Ratio 0.7 (1.0-1.7) Urine Collection Type Unknown Urine Color Yellow Urine Clarity Cloudy Urine pH 5.5 Urine Specific [place] >=1.030 Urine Protein 100mg/dL (NEG-TRACE) Urine Glucose (UA) Negativemg/dL (NEG) Urine Ketones (Stick) Negativemg/dL (NEG) Urine Blood Moderate (NEG) Urine Nitrite Negative (NEG) Urine Bilirubin Negative (NEG) Urine Urobilinogen Dipstick 0.2mg/dL (0.2 mg/dL) Urine Leukocyte Esterase Small (NEG) Urine RBC 11-20/HPF (0-2) Urine WBC 5-10/HPF (0-4) Urine Squamous Epithelial Cells Few/LPF Urine Bacteria Few/HPF (0-FEW) Urine Mucus Mod/LPF Glucose (Fingerstick) 90mg/dL (70-99) Laboratory Tests Test 06/30/16 17:25 06/30/16 21:30 07/01/16 07:42 White Blood Count 12.0x10^3/uL (4.0-11.0) Red Blood Count 3.91x10^6/uL (4.30-5.70) Hemoglobin 12.2g/dL (13.0-17.5) Hematocrit 37.1% (39.0-53.0) Mean Corpuscular Volume 95fL (79-100) Mean Corpuscular Hemoglobin 31pg (25-35) Mean Corpuscular Hemoglobin Concent 33g/dL (31-37) Red Cell Distribution Width 13.4% (11.5-14.5) Platelet Count 400x10^3/uL (140-400) Neutrophils (%) (Auto) 84% (31-73) Lymphocytes (%) (Auto) 9% (24-48) Monocytes (%) (Auto) 7% (0-9) Eosinophils (%) (Auto) 0% (0-3) Basophils (%) (Auto) 0% (0-3) Neutrophils # (Auto) 10.1x10^3uL (1.8-7.7) Lymphocytes # (Auto) 1.1x10^3/uL (1.0-4.8) Monocytes # (Auto) 0.8x10^3/uL (0.0-1.1) Eosinophils # (Auto) 0.0x10^3/uL (0.0-0.7) Basophils # (Auto) 0.0x10^3/uL (0.0-0.2) Sodium Level 145mmol/L (136-145) Potassium Level 4.0mmol/L (3.5-5.1) Chloride Level 107mmol/L (98-107) Carbon Dioxide Level 25mmol/L (21-32) Anion Gap 13 (6-14) Blood Urea Nitrogen 14mg/dL (8-26) Creatinine 0.9mg/dL (0.7-1.3) Estimated GFR (Cockcroft-Gault) 83.7 BUN/Creatinine Ratio 16 (6-20) Glucose Level 139mg/dL (70-99) Calcium Level 8.9mg/dL (8.5-10.1) Total Bilirubin 0.4mg/dL (0.2-1.0) Aspartate Amino Transf (AST/SGOT) 70U/L (15-37) Alanine Aminotransferase (ALT/SGPT) 109U/L (16-63) Alkaline Phosphatase 227U/L (46-116) Total Protein 6.7g/dL (6.4-8.2) Albumin 2.7g/dL (3.4-5.0) Albumin/Globulin Ratio 0.7 (1.0-1.7) Urine Collection Type Unknown Urine Color Yellow Urine Clarity Cloudy Urine pH 5.5 Urine Specific [place] >=1.030 Urine Protein 100mg/dL (NEG-TRACE) Urine Glucose (UA) Negativemg/dL (NEG) Urine Ketones (Stick) Negativemg/dL (NEG) Urine Blood Moderate (NEG) Urine Nitrite Negative (NEG) Urine Bilirubin Negative (NEG) Urine Urobilinogen Dipstick 0.2mg/dL (0.2 mg/dL) Urine Leukocyte Esterase Small (NEG) Urine RBC 11-20/HPF (0-2) Urine WBC 5-10/HPF (0-4) Urine Squamous Epithelial Cells Few/LPF Urine Bacteria Few/HPF (0-FEW) Urine Mucus Mod/LPF Glucose (Fingerstick) 90mg/dL (70-99) Plan Plan IMPRESSION:: 1. diarrhea watery with presumptive C diff POA 2. leukocytosis w/o fever 3. transaminitis 4. Severe weakness with inability to stand/transfer or do ADLs 5. R hip wound with wound vac POA 6. R hip pain chronic 7. CHF EF 35-40% per ECHO stable at admission, not acute 8. DM II with neuropathy insulin controlled, 9. hyperlipidemia 10. anemia chronic B12 deficiency 11. CAD with h/o NH, CABG x4 12. Rheumatoid arthritis 13. 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 diverticulosis 15. severe depression single episode mildly active 16 CKD II with no acute renal failure 17. severe weakness and debility 18. severe PCL malnutrition with trace ketonuria 19. seborrheic dermatitis 20. OA R hip severe 21. 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 Polyarthralgia. 23. Primary polyarticular osteoarthritis. 24 DMARD monitoring. 25. Chronic nonsteroidal antiinflammatory drug use. 26. R hip decubitus ulcer stage III s/p debridement 04/14/16 27. R foot wound POA PLAN diarrhea/transaminitis 06/20 stool culture neg resend stool C diff (06/20 LFTS) AP 239 Admit 227 AST 36 70 ALT 39 109 Continue Vancomycin for C diff no fever Admit WBC 12.0 Blood culture x2 urine culture pending weakness/debility PT OT DM II FSBS/no ssi at this time CKD II monitor wounds wound care nurse consult DVT/GI prophylaxis Lovenox PPI For more details regarding further plans, please refer to the orders. DischargE summary. The patient was seen and examined by me. Chart reviewed and plan of care formulated. Discussed with, reviewed and agree with [facility]'s notes, plan of care and orders with modifications as necessary. For more details regarding further plans, please refer to the orders. Clinically patient does not have diarrhea.He did not have diarrhea in the last 2 days of his previous stay. He can not take care of himself.He needs to go to a [facility].D/w him extensively. HERNANDEZ WARD APRN Jul 01, 2016 09:09 FEROZ ESPOSITO MD Jul 01, 2016 10:34 HERNANDEZ WARD APRN Jul 04, 2016 09:46
== END 2016-07-01 18:00 | disposition home health service (06) | DRG 91 ==
LOC: ER 17:17 → 5 NORTH 21:12
PROVIDERS: ADMIT Internal Medicine; ATTEND Internal Medicine
DX: G72.89 Other specified myopathies (principal); E43 Unspecified severe protein-calorie malnutrition; L89.213 Pressure ulcer of right hip, stage 3; A04.7 Enterocolitis due to Clostridium difficile; I13.0 Hypertensive heart and chronic kidney disease with heart failure and stage 1 through stage 4 chronic kidney disease, or unspecified chronic kidney disease; I50.22 Chronic systolic (congestive) heart failure; S71.001A Unspecified open wound, right hip, initial encounter; S91.301A Unspecified open wound, right foot, initial encounter; D72.829 Elevated white blood cell count, unspecified; E03.9 Hypothyroidism, unspecified; E11.22 Type 2 diabetes mellitus with diabetic chronic kidney disease; E11.40 Type 2 diabetes mellitus with diabetic neuropathy, unspecified; E53.8 Deficiency of other specified B group vitamins; E78.00 Pure hypercholesterolemia, unspecified; E78.5 Hyperlipidemia, unspecified; F32.9 Major depressive disorder, single episode, unspecified; I25.10 Atherosclerotic heart disease of native coronary artery without angina pectoris; B95.61 Methicillin susceptible Staphylococcus aureus infection as the cause of diseases classified elsewhere; K21.9 Gastro-esophageal reflux disease without esophagitis; M06.9 Rheumatoid arthritis, unspecified; M16.11 Unilateral primary osteoarthritis, right hip; L21.9 Seborrheic dermatitis, unspecified; X58.XXXA Exposure to other specified factors, initial encounter; M25.551 Pain in right hip; N18.2 Chronic kidney disease, stage 2 (mild); K57.90 Diverticulosis of intestine, part unspecified, without perforation or abscess without bleeding; K59.00 Constipation, unspecified; M19.90 Unspecified osteoarthritis, unspecified site; Z79.1 Long term (current) use of non-steroidal anti-inflammatories (NSAID); Z89.512 Acquired absence of left leg below knee; Z83.3 Family history of diabetes mellitus; I25.2 Old myocardial infarction; Z79.4 Long term (current) use of insulin; Z95.1 Presence of aortocoronary bypass graft; Z87.01 Personal history of pneumonia (recurrent); Z68.28 Body mass index [BMI] 28.0-28.9, adult; Y93.9 Activity, unspecified; Y92.9 Unspecified place or not applicable; Y99.9 Unspecified external cause status
CPT/HCPCS: 36415; 71010; 80053; 81001; 82947; 85027; 87040; 87086; 87641; J1815; J7512; 99285-25

== ENCOUNTER 2016-07-03 12:07 | Emergency (ER) | payer MEDICARE ==
[~2016-07-03] VITALS: Ht 170.2 cm; Wt 66.7 kg
--- NOTE | 2016-07-03 13:00 | RAD ---
EXAM: Chest, single view. HISTORY: Weakness. COMPARISON: 06/30/2016. FINDINGS: A frontal view of the chest is obtained. There is no infiltrate, effusion or pneumothorax. The heart is normal in size. There are median sternotomy wires. There is bilateral glenohumeral osteoarthritis. IMPRESSION: No acute pulmonary finding.
[2016-07-03 13:18] LABS: BASO # 0.1 x10^3/uL (0.0-0.2); BASO % 1 % (0-3); EOS % 1 % (0-3); HEMATOCRIT 36.1 % (39.0-53.0); HEMOGLOBIN 11.8 g/dL (13.0-17.5); LYMPH # 1.3 x10^3/uL (1.0-4.8); LYMPH % 13 % (24-48); MEAN CORPUSCULAR HEMOGLOBIN 31 pg (25-35); MEAN CORPUSCULAR HGB CONC 33 g/dL (31-37); MEAN CORPUSCULAR VOLUME 95 fL (79-100); MONO % 7 % (0-9); NEUT % 78 % (31-73); PLATELET COUNT 372 x10^3/uL (140-400); RED BLOOD COUNT 3.81 x10^6/uL (4.30-5.70); RED CELL DISTRIBUTION WIDTH 13.5 % (11.5-14.5)
[2016-07-03 13:27] LABS: CALCIUM 8.8 mg/dL (8.5-10.1); GFR 74.1; POTASSIUM 4.3 mmol/L (3.5-5.1)
[2016-07-03] MEDS ORDERED: IV NORMAL SALINE 500ML BAG 500 ML IV ONE (13:30)
[2016-07-03 13:33] LABS: ALBUMIN 2.8 g/dL (3.4-5.0); ALBUMIN/GLOBULIN RATIO 0.7 (1.0-1.7); TOTAL BILIRUBIN 0.4 mg/dL (0.2-1.0); TOTAL PROTEIN 6.7 g/dL (6.4-8.2)
--- NOTE | 2016-07-03 13:43 | EKG ---
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
--- NOTE | 2016-07-03 14:44 | PHYS DOC ---
Past Medical History Past Medical History: CAD, Constipation, Diabetes-Type II, GERD, High Cholesterol, Hypertension, Hypothyroid, NM, Other Additional Past Medical Histor: RA Past Surgical History: Coronary Bypass Surgery, Tonsillectomy Additional Past Surgical Histo: multiple toe amputations, cataracts, LBKA Alcohol Use: None Drug Use: None Adult General Chief Complaint Chief Complaint: WEAKNESS/GENERALIZED HPI HPI Patient is a 71 year old male who presents with generalized weakness. Patient reports he was feeling so weak this morning he is unable to stand up from his bed and transferred to his wheelchair. This started on Monday; patient was seen here for same and is being discharged home. No change in symptoms. He denies any other acute complaints. Review of Systems Review of Systems Constitutional: Generalized weakness. Denies fever or chills HENT: Denies nasal congestion or sore throat Respiratory: Denies cough or shortness of breath Cardiovascular: Denies chest pain GI: Chronic diarrhea. Denies abdominal pain, nausea, vomiting, bloody stools : Denies dysuria or hematuria Musculoskeletal: Denies back pain or joint pain Neurologic: Denies headache, focal weakness or sensory changes Current Medications Current Medications Current Medications Medications (Trade) Dose Ordered Sig/Juan R Start Time Stop Time Status Last Admin Dose Admin Sodium Chloride (Iv Sodium Chloride 0.9% 500ml Bag) 500 ml @ 500 mls/hr 1X ONCE 07/03/16 13:30 07/03/16 14:29 DC 07/03/16 13:21 500 MLS/HR Allergies Allergies Allergies Coded Allergies Type Severity Reaction Last Updated Verified I S O L A T I O N *CONTACT* Allergy Unknown 04/14/16 Yes No Known Medication Allergies Allergy Unknown 04/14/16 Yes Physical Exam Physical Exam Constitutional: Well developed, well nourished, no acute distress, non-toxic appearance HENT: Normocephalic, atraumatic, bilateral external ears normal Eyes: PERRL, EOMI, conjunctiva normal, no discharge Neck: Normal range of motion, no stridor Cardiovascular: Heart rate normal, regular rhythm, no murmur Lungs & Thorax: Bilateral breath sounds clear to auscultation Abdomen: Bowel sounds normal, soft, non-distended, no TTP Skin: Warm, dry, no erythema, no rash; scattered sores to buttocks, BLE Extremities: No obvious deformity, no edema Neurologic: Alert and oriented X 3, GCS 15, CN II-XII grossly intact, strength intact and symmetrical throughout, sensation to light touch intact throughout Current Patient Data Vital Signs Vital Signs Date Time Temp Pulse Resp B/P Pulse Ox O2 Delivery O2 Flow Rate FiO2 07/03/16 12:10 98 81 16 129/66 92 Room Air 98.0 Lab Values Laboratory Tests Test 07/03/16 13:10 White Blood Count 10.0x10^3/uL (4.0-11.0) Red Blood Count 3.81x10^6/uL (4.30-5.70) L Hemoglobin 11.8g/dL (13.0-17.5) L Hematocrit 36.1% (39.0-53.0) L Mean Corpuscular Volume 95fL (79-100) Mean Corpuscular Hemoglobin 31pg (25-35) Mean Corpuscular Hemoglobin Concent 33g/dL (31-37) Red Cell Distribution Width 13.5% (11.5-14.5) Platelet Count 372x10^3/uL (140-400) Neutrophils (%) (Auto) 78% (31-73) H Lymphocytes (%) (Auto) 13% (24-48) L Monocytes (%) (Auto) 7% (0-9) Eosinophils (%) (Auto) 1% (0-3) Basophils (%) (Auto) 1% (0-3) Neutrophils # (Auto) 7.8x10^3uL (1.8-7.7) H Lymphocytes # (Auto) 1.3x10^3/uL (1.0-4.8) Monocytes # (Auto) 0.7x10^3/uL (0.0-1.1) Eosinophils # (Auto) 0.1x10^3/uL (0.0-0.7) Basophils # (Auto) 0.1x10^3/uL (0.0-0.2) Sodium Level 141mmol/L (136-145) Potassium Level 4.3mmol/L (3.5-5.1) Chloride Level 107mmol/L (98-107) Carbon Dioxide Level 25mmol/L (21-32) Anion Gap 9 (6-14) Blood Urea Nitrogen 14mg/dL (8-26) Creatinine 1.0mg/dL (0.7-1.3) Estimated GFR (Cockcroft-Gault) 74.1 BUN/Creatinine Ratio 14 (6-20) Glucose Level 142mg/dL (70-99) H Calcium Level 8.8mg/dL (8.5-10.1) Total Bilirubin 0.4mg/dL (0.2-1.0) Aspartate Amino Transferase (AST) 47U/L (15-37) H Alanine Aminotransferase (ALT) 91U/L (16-63) H Alkaline Phosphatase 175U/L (46-116) H Total Protein 6.7g/dL (6.4-8.2) Albumin 2.8g/dL (3.4-5.0) L Albumin/Globulin Ratio 0.7 (1.0-1.7) L Laboratory Tests 07/03/16 13:10 Laboratory Tests 07/03/16 13:10 EKG EKG EKG (my read): sinus rhythm, rate 83, borderline LAD, QTc 486ms, no acute ST/T changes Radiology/Procedures Radiology/Procedures CXR: IMPRESSION: No acute pulmonary finding. Course & Med Decision Making Course & Med Decision Making Pertinent Labs and Imaging studies reviewed. (See chart for details) Patient is 71-year-old male who presents with generalized weakness. Seen here multiple times for same. Will obtain EKG, chest x-ray, labs to evaluate. Small fluid bolus ordered. EKG and imaging results as above. Labs unremarkable except for mild elevation in LFTs. Discussed results with patient. I discussed this case with Dr. Esposito, patient's PCP. He says that this is a chronic problem for the patient, and he would admit patient if the patient was willing to go to a prison after admission. I discussed with patient, who does not wish to pursue this and has asked to be discharged home. Will discharge home with instructions for follow-up and return precautions. Dragon Disclaimer Dragon Disclaimer This electronic medical record was generated, in whole or in part, using a voice recognition dictation system. Departure Departure Impression: Primary Impression: Generalized weakness Disposition: 01 HOME, SELF-CARE Condition: STABLE Referrals: FEROZ ESPOSITO MD (PCP) Patient Instructions: Weakness Additional Instructions: Thank you for allowing us to provide care today in the Emergency Department. Schedule a follow up appointment with your primary care doctor. Return promptly to the Emergency Department if you develop any new or concerning symptoms. CHIKI ROWELL MD Jul 03, 2016 14:44
[2016-07-03 17:28] VITALS: BP 128/60
== END 2016-07-03 18:00 | disposition home or self-care (01) ==
LOC: ER 12:07
DX: R53.1 Weakness (principal); R79.89 Other specified abnormal findings of blood chemistry; I25.10 Atherosclerotic heart disease of native coronary artery without angina pectoris; E11.9 Type 2 diabetes mellitus without complications; K21.9 Gastro-esophageal reflux disease without esophagitis; E78.00 Pure hypercholesterolemia, unspecified; I10 Essential (primary) hypertension; E03.9 Hypothyroidism, unspecified; I25.2 Old myocardial infarction; M06.9 Rheumatoid arthritis, unspecified; Z95.1 Presence of aortocoronary bypass graft; Z91.041 Radiographic dye allergy status
CPT/HCPCS: 36415; 71010; 80053; 85027; 93005; 96360; 99285; J7040